=== PATIENT | female | born 1935 | race Caucasian/White ===

== ENCOUNTER 2019-06-21 15:13 | Observation (INO) | payer MEDICARE, SELFPAY ==
--- NOTE | ~2019-06-21 | XR_ITS ---
EXAMINATION: XR retrograde pyelo w/stent RT DATE: 06/22/2019 18:54 INDICATION: Right renal stone extraction TECHNIQUE: A total of 8 fluoroscopic images of the abdomen and pelvis were obtained during procedure performed by Dr. Leger. Radiologist was not present for the imaging or procedure. The amount of fluoroscopy time used during this procedure was 0.7 minutes. COMPARISON: CT dated 06/21/2019 FINDINGS: Images demonstrate advancement of a wire through the right ureter to the region of the right renal pe lvis. Contrast injection demonstrates mild to moderate right hydroureteronephrosis. Placement of a ri ght internal ureteral stent with loops formed at the right renal pelvis and bladder. Multiple phlebol iths in the pelvis. The previously seen distal right ureteral stone is not definitively visualized an d may have been extracted. Cholecystectomy clips in the right upper quadrant. IMPRESSION: 1. Right internal ureteral stent placement in expected position. See procedure note for further detai l. Reviewed, dictated and finalized at location A. R DOUBLER IMPRESSION: 1. Right internal ureteral stent placement in expected position. See procedure note for further detail.
--- NOTE | ~2019-06-21 | CT_ITS ---
EXAMINATION: CT abdomen pelvis w con DATE: 06/21/2019 19:21 INDICATION: Lower abdominal pain and vomiting. TECHNIQUE: Computed tomography (CT) of the abdomen and pelvis was performed with 100 mL Omnipaque-350 intravenous contrast. Automated exposure control and iterative reconstruction technique were employe d. The dose-length product was 851.46 mGy-cm. COMPARISON: 01/30/2019 FINDINGS: Mild left basilar atelectasis. Mild cardiomegaly. Atherosclerotic coronary artery calcification. Smal l sliding-type hiatal hernia. There is edematous appearing wall thickening the distal esophagus sugge stive of esophagitis potentially related to reflux. Small hepatic calcination in multiple splenic tasia cination is consistent with old granulomatous disease. Diffuse hepatic steatosis. Cholecystectomy cli ps at the gallbladder fossa. Pancreas, bilateral adrenal glands and left kidney are normal. There is a relatively low density 7 mm obstructing stone at the distal right ureter approximately 1.5 cm from the ureterovesicular junction with moderate right hydroureteronephrosis. Additional 6 mm 3 m m stones at the lower pole calyces of the right kidney. Moderate right perinephric stranding. There is mild colonic diverticulosis with a sigmoid predominance. There is no adjacent inflammatory change to suggest diverticulitis. The uterus is not identified and has likely been surgically resecte d. Numerous phleboliths in the pelvis. Bladder is normal. No free intraperitoneal gas or fluid. No pa thologically enlarged abdominal or pelvic lymphadenopathy. There is calcified atherosclerosis of the aorta and many of the other arteries. Severe thoracolumbar spondylosis. IMPRESSION: 1. Right-sided nephrolithiasis with obstructing 7 mm distal right ureteral stone resulting in moderat e right hydronephrosis. 2. Small sliding-type hiatal hernia with wall thickening the distal esophagus which could be related to reflux esophagitis. 3. Diffuse hepatic steatosis. 4. Mild cardiomegaly. Reviewed, dictated and finalized at location A. E[employer] DEVELOPMENT LIBRARIAN IMPRESSION: 1. Right-sided nephrolithiasis with obstructing 7 mm distal right ureteral ston e resulting in moderate right hydronephrosis. 2. Small sliding-type hiatal hernia with wall thickening the distal esophagus w hich could be related to reflux esophagitis. 3. Diffuse hepatic steatosis. 4. Mild cardiomegaly.
[2019-06-21 15:43] VITALS: BP 183/71; PULSE 74; RESP 22; TEMP 36.7; O2SAT 97
[2019-06-21 16:18] LABS: Basophils Absolute Auto 0.1 K/mm3 (0.0-0.1); Basophils Percent Auto 0.5 % (0.2-1.2); Eosinophils Absolute Auto 0.5 K/mm3 (0-0.3); Eosinophils Percent Auto 4.6 % (0-4.4); Hematocrit 42.7 % (37.0-47.0); Immature Granulocyte Absolute 0.04 K/mm3 (0.00-0.031); Immature Granulocyte Percent A 0.4 % (0-0.5); Lymphocytes Absolute Auto 1.47 K/mm3 (0.9-3.2); Lymphocytes Percent Auto 14.5 % (18.3-44.2); Mean Corpuscular HGB Conc 32.8 g/dl (32-36); Mean Corpuscular Hemoglobin 30.4 pg (26-34); Mean Corpuscular Volume 92.6 fl (80-100); Mean Platelet Volume 10.3 fl (7.4-10.4); Neutrophils Absolute Auto 7.1 K/mm3 (1.3-6.7); Platelet Count Result 262 k/mm3 (150-375); Red Blood Count 4.61 M/mm3 (4.2-5.4); Red Cell Distribution Width 13.9 % (11.5-14.5); White Blood Count 10.2 K/mm3 (4.5-10.0)
[2019-06-21 16:29] LABS: Blood Urea Nitrogen 19 mg/dL (7-17); Calcium 9.2 mg/dL (8.4-10.2); Carbon Dioxide 25 mmol/L (22-30); Chloride 103 mmol/L (98-107); Estimated CRCL calculation 34 ml/min; Estimated Glomerular Filt Rate 48; Glucose 128 mg/dL (65-105); Potassium 3.5 mmol/L (3.4-5.0); Sodium 140 mmol/L (137-145)
[2019-06-21 18:00] VITALS: BP 195/92; PULSE 72; RESP 18; TEMP 36.7; O2SAT 98
--- NOTE | 2019-06-21 18:50 | ED.ABDPAIN ---
HPI - Abdominal Pain General Chief Complaint: Abdominal Pain Stated Complaint: flank/abd pain Time Seen by Provider: 06/21/19 18:34 Source: patient and RN notes reviewed Mode of arrival: ambulatory Limitations: no limitations History of Present Illness HPI narrative: Pt is a 84 y/o female with a Hx of numerous rt sided kidney stones, lithotripsy, and ureteral stents, who presents to the ED with c/o rt flank pain starting this morning. She notes that she recently passed a kidney stone roughly 5 days ago. Pt states that she woke up this morning with pain in her rt lower back. She notes that her pain has since radiated around into her rt lower ABD. Pt reports nausea accompanying her pain, but denies any diarrhea, constipation, vomiting, fever, dysuria, hematuria, or sinus congestion. Pt with history of uric acid nephrolithiasis, follows with Dr. Leger. Pain is consistent with her typical kidney stone pain. MD elicited complaint: flank pain Pertinent past history: kidney stones Location: R flank Radiation: RLQ Associated symptoms: nausea Related Data Home Medications Medication Instructions Recorded Confirmed amlodipine 06/21/19 aspirin [Aspir-81] 81 06/21/19 venlafaxine mg PO 06/21/19 Allergies Allergy/AdvReac Type Severity Reaction Status Date / Time adhesive Allergy Mild itching Unverified 02/17/19 10:13 and skin adan Review of Systems Review of Systems: Narrative: CONSTITUTIONAL: Denies fever, chills, or sweats. ENT: Denies rhinorrhea, congestion, sore throat, or otalgia. CARDIOVASCULAR: Denies chest pain, palpitations, or edema. RESPIRATORY: Denies cough or dyspnea. GASTROINTESTINAL: Denies vomiting, constipation, or diarrhea. Reports rt flank pain radiating into rt lower ABD and nausea. GENITOURINARY: Denies dysuria or hematuria. MUSCULOSKELETAL: Denies joint pain, or myalgia. NEUROLOGIC: Denies headache, numbness, or weakness. All systems reviewed & are unremarkable except as noted in HPI and below PMFSH Past Medical History Medical History (Updated 06/21/19 @ 20:10 by Luigi Valderrama) Anxiety (Acute) Arthritis (Acute) Cataracts, bilateral (Acute) Depression (Acute) GERD (gastroesophageal reflux disease) (Acute) HTN (hypertension) (Acute) Kidney stones (Acute) Mitral valve prolapse (Acute) Peripheral neuropathy (Acute) Surgical History Surgical History (Updated 06/21/19 @ 20:10 by Luigi Valderrama) H/O lithotripsy (Acute) History of hysterectomy (Acute) History of ureter stent (Acute) Hx of cardiac catheterization (Acute) Hx of cataract surgery (Acute) Hx of cholecystectomy (Acute) Family History Family History (Updated 08/28/17 @ 10:13 by DOCTOR UNKNOWN) Sibling Carcinoma of colon Other Cerebrovascular accident Diabetes mellitus Family history of cardiovascular disease Hypertension Social History Social History Smoking status: Never smoker Alcohol intake: current Gender identity (if verbalized by the patient): Female Comments PCP is Dr. Nguyen. Urologist is Dr. Leger. Exam Narrative: Exam Narrative: GENERAL: Mildly uncomfortable appearing, conversant HEAD: Normocephalic, atraumatic. EYES: PERRLA and EOMI. ENT: Nares clear, no rhinorrhea or epistaxis. Mucous membranes moist. NECK: Supple. CHEST: Clear to auscultation. No respiratory distress. HEART: Regular rate and rhythm. No murmur heard. Normal peripheral pulses. ABDOMEN: Soft, nondistended, normal active bowel sounds. RLQ and LLQ tenderness. Rt flank tenderness. EXTREMITIES: Normal range of motion. No edema. SKIN: Warm, dry, no rash. NEURO: No focal deficits. Alert and oriented. Course Course Emergency Course: Patient presenting for evaluation of right flank and right lower abdominal pain that is very concerning for kidney stone given her history. At the time of presentation, ABCs are intact. Vital signs notable for hypertension, although she is in quite a bit of pain. Blood work obtained
[2019-06-21] MEDS: SODIUM CHLORIDE 0.9% IV 1,000 ML 999 ML IV CONT (19:25)
[2019-06-21] MEDS: ONDANSETRON INJ 4 MG/2 ML VIAL IV PUSH (19:28)
[2019-06-21] MEDS: MORPHINE SULFATE 4 MG/ML INJ IV PUSH ×2 (19:33→23:14)
[2019-06-21 19:44] LABS: Add Urine Microscopic? YES; Appearance Urine Clear (Clear); Bacteria Urine Trace /hpf; Bilirubin Urine Negative (Negative); Blood Urine 3+ (Negative); Color Urine Yellow (Yellow); Glucose Urine UA Negative (Negative); Ketones Urine Negative (Negative); Leukocyte Esterase Ur Negative LEU/UL (Negative); Mucus Urine Rare /lpf; Nitrate Urine Negative (Negative); Protein Urine 2+ mg/dL (Negative); Specific Grav Ur 1.013 (1.001-1.035); Squamous Epithelial Cell Urine Occasional /hpf (Few); Urobilinogen Urine Negative mg/dL (<2.0); WBC Urine 0-3
[2019-06-21 20:25] VITALS: BP 166/69; PULSE 74; RESP 18; O2SAT 97
[2019-06-21 21:05] VITALS: BP 186/78; PULSE 76; RESP 20; TEMP 36.8; O2SAT 95; BMI 36.0
[2019-06-21] MEDS: SODIUM CHLORIDE 0.9% IV 1,000 ML 125 ML IV CONT (21:13)
[2019-06-21] MEDS: AMLODIPINE BESYLATE 5 MG TABLET 10 MG PO (22:35)
[2019-06-21 23:45] VITALS: PULSE 78; O2SAT 95
[2019-06-22] MEDS: SODIUM CHLORIDE 0.9% IV 1,000 ML 125 ML IV CONT (05:04)
[2019-06-22 06:00] VITALS: BP 170/78; PULSE 76; RESP 20; TEMP 36.8; O2SAT 95
--- NOTE | 2019-06-22 10:38 | WPDURCON ---
Assessment and Plan Assessment and plan (1) Right distal ureteral calculus: Code(s): N20.1 - Calculus of ureter Status: Acute Assessment and Plan: obtain consent Keep NPO Go to OR today for : Cystoscopy, right ureteroscopy, possible right stone removal, possible right stent placement, possible holmium laser, retrograde pyelogram. HPI Date Seen: 06/22/19 Requesting Physician: Brittany eLger MD Primary Care Provider: Baldev Nguyen, Consult Narrative Reason for consult: Right Distal Ureteral Stone Narrative: Giana Yao is a 84 year old female who presented to the ER yesterday with acute onset of suprapubic pain that radiates to the lower back. She also states she had vomiting, which has subsided. She is a patient of Dr. Leger's, who has had ESWL's, ureteroscopys and a PCNL in the past. She has a WBC of 10.2, creatinine of 1.10, CT scan reveals right side distal ureteral stone measuring 7mm. She also states that she passed a stone at home five days ago. Review of Systems Cardiovascular: Cardiovascular: Denies chest pain Respiratory: Respiratory: Reports no additional respiratory complaints Gastrointestinal: Gastrointestinal: Denies nausea and Denies vomiting Genitourinary: Genitourinary: Denies urinary frequency, Denies dysuria, Reports pelvic pain, Reports flank pain, Denies urinary hesitancy and Denies urinary urgency PMFSH Past Medical History Medical History Anxiety (Acute) Arthritis (Acute) Cataracts, bilateral (Acute) Depression (Acute) GERD (gastroesophageal reflux disease) (Acute) HTN (hypertension) (Acute) Kidney stones (Acute) Mitral valve prolapse (Acute) Peripheral neuropathy (Acute) Surgical History Surgical History H/O lithotripsy (Acute) History of hysterectomy (Acute) History of ureter stent (Acute) Hx of cardiac catheterization (Acute) Hx of cataract surgery (Acute) Hx of cholecystectomy (Acute) Family History Family History Sibling Carcinoma of colon Other Cerebrovascular accident Diabetes mellitus Family history of cardiovascular disease Hypertension Social History Social History Smoking status: Never smoker Alcohol intake: never Substance use: never Gender identity (if verbalized by the patient): Female Spiritual care concerns: No Agree to blood products: Yes Meds Home Medications and Allergies Home Medications Medication Instructions Recorded Confirmed Type amlodipine 10 mg PO HS 06/21/19 06/21/19 History aspirin [Aspir-81] 81 mg PO HS 06/21/19 06/21/19 History trazodone 100 mg PO HS 06/21/19 06/21/19 History venlafaxine 75 mg PO DAILY 06/21/19 06/21/19 History Allergies Allergy/AdvReac Type Severity Reaction Status Date / Time adhesive Allergy Mild itching Verified 06/21/19 21:21 and skin adan Vital Signs Vital Signs - 24 hr 06/21/19 15:43 06/21/19 18:00 06/21/19 20:25 Temperature 98.1 F 98.1 F Pulse Rate 74 72 74 Respiratory Rate 22 H 18 18 Blood Pressure 183/71 H 195/92 H 166/69 H Pulse Oximetry 97 98 97 06/21/19 21:05 06/21/19 23:45 06/22/19 06:00 Temperature 98.3 F 98.3 F Pulse Rate 76 78 76 Respiratory Rate 20 20 Blood Pressure 186/78 H 170/78 H Pulse Oximetry 95 95 95 Exam Resp: Effort & Inspection: normal respiratory effort Cardio: Rate: regular rate GI: Palpation (GI): No abdominal tenderness Results Labs CBC & Chem 7: 06/21/19 15:44 06/21/19 15:44 Labs: Short CBC 06/21/19 Range/Units 15:44 WBC 10.2 H (4.5-10.0) K/mm3 Hgb 14.0 (12.0-15.0) g/dL Hct 42.7 (37.0-47.0) % Plt Count 262 (150-375) k/mm3 BMP 06/21/19 15:44 Sodium 140 Potassium 3.5 Chloride 103 Carbon Dioxid
--- NOTE | 2019-06-22 13:17 | ADMGEN ---
Patient to surgery per stretcher.
[2019-06-22] MEDS: LACTATED RINGERS 1,000 ML 30 ML IV CONT (14:00)
[2019-06-22 14:06] VITALS: BP 148/53; PULSE 66; RESP 16; TEMP 36.8; O2SAT 96
--- NOTE | 2019-06-22 14:17 | WPDHPUPDATE1 ---
History and Physical Update Update Date/Time: 06/22/19 14:17 History and Physical has been reviewed, including an updated exam of the patient. There are NO changes in the patient's condition. Risks, benefits, and alternatives have been discussed and questions answered. Patient agrees to proceed with procedure.
--- NOTE | 2019-06-22 14:46 | WPDANESEPPF ---
Anes - Initial Pre Proc Eval Procedure: Operation Date: 06/22/19 14:00 Proposed Procedures p Cystoscopy, Right Ureteroscopy, Right Retrograde Pyelogram, Right Stone Extraction, Possible Right Stent Placement, - Brittany Leger MD s Possible Holmium Laser Procedure - Brittany Leger MD Date/Time: 06/22/19 14:46 Surgeon: Brittany Leger MD Pre Op Diagnosis: renal colic Patient Data Age: 84 Gender: F Height: 1.52 m Weight: 83.7 kg Last Vital Signs Temp 36.8 C 06/22/19 14:06 Pulse 66 06/22/19 14:06 Resp 16 06/22/19 14:06 BP 148/53 H 06/22/19 14:06 Pulse Ox 96 06/22/19 14:06 Allergies Allergy/AdvReac Type Severity Reaction Status Date / Time adhesive Allergy Mild itching Verified 06/22/19 14:25 and skin adan Home Medications Medication Instructions Recorded Confirmed Type amlodipine 10 mg PO HS 06/21/19 06/21/19 History aspirin [Aspir-81] 81 mg PO HS 06/21/19 06/21/19 History trazodone 100 mg PO HS 06/21/19 06/21/19 History venlafaxine 75 mg PO DAILY 06/21/19 06/21/19 History Laboratory Tests 06/21/19 06/21/19 06/21/19 15:44 15:44 19:23 WBC 10.2 K/mm3 H K/mm3 (4.5-10.0) RBC 4.61 M/mm3 M/mm3 (4.2-5.4) Hgb 14.0 g/dL g/dL (12.0-15.0) Hct 42.7 % % (37.0-47.0) MCV 92.6 fl fl (80-100) MCH 30.4 pg pg (26-34) MCHC 32.8 g/dl g/dl (32-36) RDW 13.9 % % (11.5-14.5) Plt Count 262 k/mm3 k/mm3 (150-375) MPV 10.3 fl fl (7.4-10.4) Immature Gran % (Auto) 0.4 % % (0-0.5) Neut % (Auto) 70.0 % % (45.5-73.1) Lymph % (Auto) 14.5 % L % (18.3-44.2) Cass % (Auto) 10.0 % H % (2.6-8.5) Eos % (Auto) 4.6 % H % (0-4.4) Baso % (Auto) 0.5 % % (0.2-1.2) Lymph # (Auto) 1.47 K/mm3 K/mm3 (0.9-3.2) Cass # (Auto) 1.0 K/mm3 H K/mm3 (0.1-0.6) Eos # (Auto) 0.5 K/mm3 H K/mm3 (0-0.3) Baso # (Auto) 0.1 K/mm3 K/mm3 (0.0-0.1) Abs Immat Gran (auto) 0.04 K/mm3 H K/mm3 (0.00-0.031) Absolute Neuts (auto) 7.1 K/mm3 H K/mm3 (1.3-6.7) Absolute Nucleated RBC 0.0 K/mm3 K/mm3 (0.0-0.012) Nucleated RBC % 0.0 % % (0.0-0.2) Sodium 140 mmol/L mmol/L (137-145) Potassium 3.5 mmol/L mmol/L (3.4-5.0) Chloride 103 mmol/L mmol/L (98-107) Carbon Dioxide 25 mmol/L mmol/L (22-30) BUN 19 mg/dL H mg/dL (7-17) Creatinine 1.10 mg/dL H mg/dL (0.7-1.0) Estim Creat Clear Calc 34 ml/min ml/min Estimated GFR 48 L (59 - ) Glucose 128 mg/dL H mg/dL (65-105) Calcium 9.2 mg/dL mg/dL (8.4-10.2) Urine Color Yellow (Yellow) Urine Appearance Clear (Clear) Urine pH 5.0 (5.0-9.0) Ur Specific [place] 1.013 (1.001-1.035) Urine Protein 2+ mg/dL H mg/dL (Negative) Urine Glucose (UA) Negative mg/dL mg/dL (Negative) Urine Ketones Negative mg/dL mg/dL (Negative) Ur Blood (Man) 3+ H (Negative) Urine Nitrate Negative (Negative) Urine Bilirubin Negative (Negative) Urine Urobilinogen Negative mg/dL mg/dL (<2.0) Leukocyte Esterase Rfl Negative HUBERT/UL HUBERT/UL (Negative) Urine RBC 11-20 /hpf H /hpf (0-2) Urine WBC 0-3 Ur Squamous Epith Cells Occasional /hpf /hpf (Few) Urine Bacteria Trace /hpf /hpf Hyaline Casts 1-2 /lpf /lpf (None) Urine Mucus Rare /lpf /lpf Patient hx anesthesia problems: none Family hx anesthesia problems: none [facility] Past Medical History Medical History (Updated 06/22/19 @ 14:47 by Manan Vera MD) Anxiety (Acute) Arthritis (Acute) Cataracts, bilateral (Acute) Depression (Acute) GERD (gastroesophageal reflux disease) (A
--- NOTE | 2019-06-22 14:54 | ECG_ITS ---
Measurements Intervals Sage Rate: 62 P: 20 DE: 182 QRS: -7 QRSD: 86 T: 12 QT: 364 QTc: 372 Interpretive Statements SINUS RHYTHM NONSPECIFIC T-WAVE ABNORMALITY- INFERIOR LEADS BORDERLINE ECG Electronically Signed On 06-22-2019 15:23:47 MECHANICAL PRESS OPERATOR by Abner Schaffer D.O.
--- NOTE | 2019-06-22 16:22 | SUR.PREOP ---
1620 UPDATED ON SURGERY DELAY. CHANGE OF POSITION & RESTROOM OFFERED.
[2019-06-22] MEDS: ceFAZolin 2 GM/D5W 50 ML 2 GM/50 ML BAG IVPB (18:00)
[2019-06-22] MEDS: LIDOCAINE HCL 2% GEL UROJET 10 ML PKG MUCOUS MEM (18:20)
[2019-06-22 18:51] VITALS: BP 158/73; PULSE 70; RESP 23; TEMP 36.5; O2SAT 98
[2019-06-22 19:05] VITALS: BP 167/78; PULSE 66; RESP 15; O2SAT 100
[2019-06-22 19:20] VITALS: BP 167/62; PULSE 60; RESP 12; O2SAT 97
[2019-06-22 19:35] VITALS: BP 167/72; PULSE 63; RESP 13; O2SAT 95
--- NOTE | 2019-06-22 19:38 | SUR.PHASEI ---
REPORT GIVEN TO TANYA ENRIQUEZ.
--- NOTE | 2019-06-23 00:17 | OP_ITS ---
DATE OF PROCEDURE: 06/22/2019 PREOPERATIVE DIAGNOSES: 1. Right ureteral stone, 1 cm. 2. Right renal stone approximately 6 mm. POSTOPERATIVE DIAGNOSES: 1. Right ureteral stone, 1 cm. 2. Right renal stone approximately 6 mm. PROCEDURES PERFORMED: 1. Cystoscopy. 2. Right ureteroscopy. 3. Laser lithotripsy. 4. Stone extraction. 5. Retrograde pyelogram. 6. Stent insertion. INDICATION FOR PROCEDURE: The patient is a very pleasant lady, who presented to the ER with a large right distal ureteral stone. I have discussed risks and alternatives with the patient. The patient agreed to proceed with right ureteroscopy today. She understand the risks of procedure included, but not limited to infection, bleeding, pain, injury to surrounding structures, and need for additional operations, and possibly anesthetics. She agrees to proceed. DESCRIPTION OF PROCEDURE: After informed consent obtained, the patient was taken to the operating room and given preoperative IV antibiotics on the floor. She was induced anesthesia. She was placed in dorsal lithotomy position. She was prepped and draped in normal sterile fashion. We inserted a 22-Azerbaijani cystoscope through the urethra into the bladder. We inspected the bladder. There were no mucosal abnormalities. We cannulated the right ureteral orifice. With the wire, we then dilated 8/10 coaxial dilator. We inserted a semi-rigid ureteroscope in the distal ureter approximately 2 cm above the ureterovesical junction. Above the level of a slight narrowing, we identified a 1 cm stone. This was too large to be removed. We therefore used a laser fiber in order to fragment the stone into multiple fragments. Fragments were then grasped and removed and sent as specimen. We inspected the ureter up to the mid ureter and there were no residual stones. We then switched to the flexible ureteroscope. This was inserted through the ureter into the renal pelvis. After retrograde pyelogram was performed, we inspected calyx. There was a mid pole 6 mm stone. There were no additional significant stones seen. The 6 mm stone was grasped. It was pulled down to the distal ureter up to the point of previous stone impaction. We then switched back to the semirigid ureteroscope. We fragmented the stone with the laser.. They were grasped and removed. There were no residual stones seen. Retrograde pyelogram was performed showing persistent moderate right hydroureteronephrosis. We did not note extravasation. We placed a 6-Azerbaijani variable length stent with a curl in renal pelvis and curl in the bladder. The bladder was emptied. A 10 mL of lidocaine instilled. The patient was awakened and taken to the recovery room in stable condition. IV FLUIDS: Per Anesthesia. COMPLICATIONS: None. ESTIMATED BLOOD LOSS: Minimal. FOLLOWUP: The patient will follow up in the office in 1 to 2 weeks for ureteral stent removal. D I MT: Yesenia MORILLO
--- NOTE | 2019-06-24 11:00 | PC.NURSE ---
While performing discharge callbacks on 06/24/19 at 1055, the patient was educated on why she was prescribed Colace upon discharge.
--- NOTE | 2019-08-04 02:57 | DS_ITS ---
DATE OF DISCHARGE: 06/22/2019 PREOP DIAGNOSIS: Right ureteral stone, right renal stone. POSTOP DIAGNOSIS: Right ureteral stone, right renal stone. The patient underwent cystoscopy, right ureteroscopy, laser lithotripsy, stone extraction, retrograde pyelogram, and stent insertion per Dr. Brittany Leger on June 22, 2019. The patient tolerated the procedure well, was transferred to recovery in stable condition and then to the floor for further observation. The patient was then discharged home. ACTIVITY: No straining. DIET: As tolerated. She was to resume all home medications including new medications, Colace, oxybutynin, and oxycodone as needed. The patient was to follow up the following week for stent removal in the office. [place] I MT: Yesenia
== END 2019-06-22 20:30 | disposition home or self-care (01) ==
LOC: ANHED 20:06 → ANH3MEDSUR 20:12
PROVIDERS: Emergency Medicine; Admitting Provider Urology; Emergency Provider Emergency Medicine; PCP Internal Medicine; Visit Provider Urology
PROC: (CPT 52352; principal; 2019-06-22 14:00)
PROC: (CPT 52356; 2019-06-22 14:00)
DX: N20.2 Calculus of kidney with calculus of ureter (principal); I10 Essential (primary) hypertension; K21.9 Gastro-esophageal reflux disease without esophagitis; G62.9 Polyneuropathy, unspecified
CPT/HCPCS: 52356; 36415; 74177; 74420; 80048; 81001; 82365; 85025; 88300; 93005; 96361; 96374; 96375; 96376; 99285; A9270; C1769; C2617; G0378; J0131; J0690; J1100; J2270; J2405; J2704; J3010; J7030; J7120; Q9967

== ENCOUNTER 2019-12-08 12:43 | Outpatient (CLI) | payer MEDICARE, SELFPAY ==
--- NOTE | ~2019-12-08 | CT_ITS ---
EXAMINATION: CT chest wo con EXAM DATE: 12/08/2019 13:06 INDICATION: Lung nodule. Follow-up. TECHNIQUE: Spiral CT of the chest without contrast. Axial, coronal and sagittal images were reviewe d. Coronal maximum intensity pixel images of chest reviewed. The dose-length product (DLP) for this examination was 145.29 mGy-cm. The exposure was tailored according to patient size (auto mA exposur e control), and iterative reconstruction (ASIR) was used as additional dose reduction technique. Comp arison is made to prior examination from 10/14/2018, 11/16/2018. FINDINGS: Previously seen left lower lobe 11 mm nodule now has more linear appearance, loss of its r ound shape, and there is evidence of volume loss. Appearance is consistent with round atelectasis. Th ere are no new or suspicious pulmonary nodules. There is mild emphysema and hyperinflation. There are no pleural or pericardial effusions. Tracheobronchial tree is patent. There is no media stinal, hilar or axillary lymphadenopathy. There is no pneumothorax. Heart normal in size. No e vidence of coronary arterial calcification. There is small sliding gastroesophageal hiatal hernia. T here are cholecystectomy clips. There is moderate thoracic spondylosis without osteoblastic or osteo lytic lesions identified. Patient has diffuse idiopathic skeletal hyperostosis (DISH). IMPRESSION: 1. Left lower lobe round atelectasis. 2. Mild hyperinflation and emphysema. Reviewed, dictated and finalized at location A.
== END 2019-12-08 12:44 | disposition home or self-care (01) ==
LOC: ANHIMG 12:48
PROVIDERS: PCP Internal Medicine; Visit Provider Internal Medicine
DX: R91.1 Solitary pulmonary nodule (principal); J43.9 Emphysema, unspecified; R91.8 Other nonspecific abnormal finding of lung field
CPT/HCPCS: 71250

== ENCOUNTER 2020-06-26 13:48 | Outpatient (CLI) | payer MEDICARE, SELFPAY ==
--- NOTE | ~2020-06-26 | XR_ITS ---
EXAMINATION: XR chest 2V EXAM DATE: 06/26/2020 14:08 INDICATION: Chronic cough. TECHNIQUE: Frontal and lateral projections of the chest obtained and reviewed. Comparison is made to prior examination from 12/08/2013. FINDINGS: The lungs are clear. There are no pleural effusions. The cardiomediastinal silhouette is within normal limits. There is no pneumothorax suspected. Patient has diffuse idiopathic skeletal h yperostosis (DISH). There is aortic arteriosclerosis. IMPRESSION: No acute cardiopulmonary findings. Reviewed, dictated and finalized at location A. LIANCE SPECIALIST
== END 2020-06-26 13:49 | disposition home or self-care (01) ==
PROVIDERS: PCP Internal Medicine; Visit Provider Internal Medicine
DX: R05 Cough (principal); M48.10 Ankylosing hyperostosis [Forestier], site unspecified; I25.10 Atherosclerotic heart disease of native coronary artery without angina pectoris
CPT/HCPCS: 71046

== ENCOUNTER 2021-04-12 12:42 | Emergency (ER) | payer MEDICARE, SELFPAY ==
--- NOTE | ~2021-04-12 | XR_ITS ---
EXAMINATION: XR chest 2V DATE: 04/12/2021 12:59 INDICATION: Difficulty swallowing, feeling of food stuck in the chest after eating TECHNIQUE: PA and lateral views of the chest are obtained. COMPARISON: 06/26/2020 FINDINGS: The lungs are free of acute opacities. There is no pleural effusion or pneumothorax. The ca rdiomediastinal silhouette is normal. There are bridging osteophytes at multiple levels in the spine, consistent with diffuse idiopathic skeletal hyperostosis (DISH). Surgical clips in the upper abdomen on the lateral view are likely from prior cholecystectomy. IMPRESSION: 1. No acute cardiopulmonary abnormality. Reviewed, dictated and finalized at location A.
[2021-04-12 12:50] VITALS: BP 125/60; PULSE 80; RESP 16; TEMP 36.8; O2SAT 98
--- NOTE | 2021-04-12 13:09 | ED.GENADULT ---
HPI - General Adult General Chief complaint: Skin/Abscess/Foreign Body Stated complaint: Choking on food History of Present Illness HPI narrative: This is a 85 year old female granddaughter came in screaming her grandmother was in the car choking. When I arrived she was coughing up thick mucous and stated that she couldn't get anything down when she was eating she started choking and throwing up. According to patient this happened one time before and she has acid that comes up some times. Patient complains of coughing Related Data Home Medications Medication Instructions Recorded Confirmed amlodipine 10 mg PO HS 06/21/19 04/12/21 aspirin [Aspir-81] 81 mg PO HS 06/21/19 04/12/21 trazodone 100 mg PO HS 06/21/19 04/12/21 venlafaxine 75 mg PO DAILY 06/21/19 04/12/21 lisinopril 10 mg tablet 10 mg PO DAILY 01/04/21 04/12/21 metformin 500 mg tablet 500 mg PO DAILY 01/04/21 04/12/21 Allergies Allergy/AdvReac Type Severity Reaction Status Date / Time adhesive Allergy Mild itching Verified 04/12/21 13:12 and skin adan Review of Systems Review of Systems: ENT choking on food, coughing All systems reviewed & are unremarkable except as noted in HPI and below PMFSH Past Medical History Medical History Anxiety Arthritis Cataracts, bilateral Colonic diverticular abscess Depression GERD (gastroesophageal reflux disease) HTN (hypertension) Kidney stones Mitral valve prolapse Obesity Peripheral neuropathy Right distal ureteral calculus Surgical History Surgical History H/O lithotripsy History of hysterectomy History of ureter stent Hx of cardiac catheterization Hx of cataract surgery Hx of cholecystectomy Family History Family History Sibling Carcinoma of colon Diabetes mellitus Mother , age 82 Heart disease Hypertension Other Cerebrovascular accident Family history of cardiovascular disease Social History Social History Smoking status: Never smoker Alcohol intake: never Substance use: never Gender identity (if verbalized by the patient): Female Spiritual care concerns: No Agree to blood products: Yes Comments At time as signature, I have reviewed and agree with nursing past medical, social, surgical and family history. Please see nursing chart for further information. There is no relevant family history pertinent to the presenting complaint. Exam Narrative: GENERAL:Well-appearing, well-nourished, and in no acute distress. HEAD:Normocephalic, atraumatic. EYES: PERRLA ENT: Nares clear, CHEST: Clear to auscultation. No respiratory distress. HEART: Regular rate and rhythm. No murmur heard. Normal peripheral pulses. ABDOMEN: Soft, nontender, nondistended, normal active bowel sounds. EXTREMITIES: Normal range of motion. No edema. SKIN: Warm, dry, no rash. NEURO: No focal deficits. Alert and oriented x3. Course Course Emergency Course: Chest x-ray represents no cardiopulmonary disease Vital Signs Vital signs: Vital Signs Temperature 98.2 F 04/12/21 12:50 Pulse Rate 80 04/12/21 12:50 Respiratory Rate 16 04/12/21 12:50 Blood Pressure 125/60 04/12/21 12:50 Pulse Oximetry 98 04/12/21 12:50 Temperature 98.2 F 04/12/21 12:50 Pulse Rate 80 04/12/21 12:50 Respiratory Rate 16 04/12/21 12:50 Blood Pressure 125/60 04/12/21 12:50 Pulse Oximetry 98 04/12/21 12:50 Medical Decision Making Differential Diagnosis Differential Diagnosis: Aspiration pneumonia, esophageal viewed varices, choking, GERD Vital Signs Vital Signs: Vital Signs Temperature 98.2 F 04/12/21 12:50 Pulse Rate 80 04/12/21 12:50 Respiratory Rate 16 04/12/21 12:50 Blood Pressure 125/60 04/12/21 12:50 Pulse Oximetry 98
== END 2021-04-12 13:30 | disposition home or self-care (01) ==
PROVIDERS: Emergency Provider Nurse Practitioner Family
DX: T17.320A Food in larynx causing asphyxiation, initial encounter (principal); F32.9 Major depressive disorder, single episode, unspecified; F41.9 Anxiety disorder, unspecified; I10 Essential (primary) hypertension; Z79.82 Long term (current) use of aspirin
CPT/HCPCS: 71046; 99213; G0463

== ENCOUNTER 2021-05-21 16:16 | Outpatient (CLI) | payer MEDICARE, SELFPAY ==
--- NOTE | ~2021-05-21 | MM_ITS ---
EXAMINATION: MM screening daja BI w derik HISTORY: Screening mammogram TECHNIQUE: Craniocaudal and mediolateral oblique 3-D tomosynthesis images were obtained and synthetic 2-D images were generated. CAD analysis was submitted and interpreted. COMPARISON: No prior mammogram is available for comparison at this institution. BREAST PARENCHYMAL COMPOSITION: There are scattered areas of fibroglandular density. FINDINGS: Scattered bilateral benign calcifications. There is no evidence of suspicious mass, calcifi cation, or architectural distortion to suggest malignancy in either breast. There has been no suspici ous interval change. IMPRESSION: 1. No mammographic evidence of malignancy. 2. Recommend routine screening mammography in one year. BI-RADS Category 2: Benign finding(s). Reviewed, dictated and finalized at location A.
== END 2021-05-21 16:17 | disposition home or self-care (01) ==
LOC: ANHIMG 16:18
PROVIDERS: Visit Provider Internal Medicine
DX: Z12.31 Encounter for screening mammogram for malignant neoplasm of breast (principal)
CPT/HCPCS: 77063; 77067

== ENCOUNTER 2021-05-24 13:04 | Outpatient (CLI) | payer MEDICARE, SELFPAY ==
--- NOTE | ~2021-05-24 | CT_ITS ---
EXAMINATION: CT diagnostic chest w con DATE: 05/24/2021 14:54 INDICATION: Cough TECHNIQUE: Computed tomography (CT) of the chest was performed with 75 cc Omnipaque 350 intravenous c ontrast. The dose-length product was 536.88 mGy-cm. Automated exposure control and iterative reconstr uction technique were employed. COMPARISON: CT dated 12/08/2019 FINDINGS: Mild atherosclerosis of the aorta without evidence for aneurysm. Heart size is normal. No m ediastinal or hilar lymphadenopathy. No significant pleural or pericardial effusion. Fatty infiltrati on of the liver. There are calcified granulomas in the spleen. There are a few scattered calcified gr anulomas. Stable rounded atelectasis left lower lobe. Mild emphysema. No endobronchial lesions. No pn eumothorax. No new focal areas of airspace disease to suggest pneumonia. There is moderate thoracic s pondylosis with accentuated kyphosis. IMPRESSION: 1. Chronic rounded atelectasis left lower lobe unchanged. 2: Mild emphysema. Reviewed, dictated and finalized at location A.
[2021-05-24 14:46] LABS: Estimated Glomerular Filt Rate 33
--- NOTE | 2021-05-24 15:11 | WPDPFTINT ---
PFT Procedure Performed PFT Procedure Performed Spirometry with Pre/Post Bronchodilator Diffusing Cap (DLCO) Flow Vol Loop PFT Interpretation This is a pulmonary function test with pre and post-bronchodilator spirometry and diffusing capacity. The test was performed and results interpreted in accordance with the 2019 and 2005 ATS/ERS Task Force guidelines respectively using the Global Lung Function Initiative-2012 reference equations. Patient demonstrated good effort and cooperation. Reproducibility criteria were met. The quality of the pre bronchodilator spirometry maneuver was Grade B and post bronchodilator spirometry maneuver was Grade B. Patient was unable to provide acceptable and reproducible plethysmography data. Findings: Spirometry: the contour the inspiratory and expiratory flow tracing are normal. The pre bronchodilator FVC is 2.05 L, 97% predicted. The pre bronchodilator FEV1 is 1.38 L, 85% predicted. The FEV1: FVC ratio 67%. The post bronchodilator FVC is 2.24 L, representing a 9% increase. The post bronchodilator FEV1 is 1.53 L, representing an 11% increase. diffusing capacity: The absolute diffusion capacity is 16.2, 93% predicted. The diffusing capacity corrected for alveolar volume is 4.74, 111% predicted. Impression: The spirometry is normal without evidence of an obstructive abnormality. There is no significant improvement after inhaling a single dose of albuterol. The diffusing capacity is normal. There are no prior studies for comparison
== END 2021-05-24 13:05 | disposition home or self-care (01) ==
PROVIDERS: Visit Provider Nurse Practitioner Family
DX: R05.9 Cough, unspecified (principal); R91.8 Other nonspecific abnormal finding of lung field; J43.9 Emphysema, unspecified
CPT/HCPCS: 71260; 94060; 94729; Q9967

== ENCOUNTER 2021-12-16 11:48 | Emergency (ER) | payer MEDICARE, SELFPAY ==
--- NOTE | ~2021-12-16 | CT_ITS ---
EXAMINATION: CT abdomen pelvis wo con DATE: 12/16/2021 12:40 INDICATION: Right upper quadrant and flank pain for one week. History of kidney stones. TECHNIQUE: Computed tomography (CT) of the abdomen and pelvis was performed without intravenous contr ast. The dose-length product was 698.20 mGy-cm. Automated exposure control and iterative reconstructi on technique were employed. COMPARISON: CT dated 06/21/2019. FINDINGS: There is left lower lobe atelectasis/scarring unchanged. Otherwise, lung bases are unremark able. Heart size is normal. Fatty infiltration of the liver. There are cholecystectomy clips. There are calcified granulomas of t he spleen. There is fatty infiltration of the liver. There is a small hiatal hernia. The adrenal glan ds are unremarkable. There are nonobstructing bilateral renal stones. No ureteral stones or hydroneph rosis. Moderate-severe lumbar spondylosis with grade 1 degenerative spondylolisthesis at L4-5. Bowel pattern is nonobstructive. Normal appendix. Colonic diverticulosis without evidence for diverti culitis. No free air or free fluid. Status post hysterectomy. No significant vascular abnormality. No lymphadenopathy. IMPRESSION: 1. Nonobstructing bilateral nephrolithiasis. Reviewed, dictated and finalized at location A.
[2021-12-16 11:52] VITALS: BP 112/81; PULSE 84; RESP 20; TEMP 36.5; O2SAT 100
[2021-12-16 12:11] LABS: Basophils Percent Auto 0.6 % (0.2-1.2); Eosinophils Absolute Auto 0.6 K/mm3 (0-0.3); Hematocrit 38.3 % (37.0-47.0); Hemoglobin 12.6 g/dL (12.0-15.0); Immature Granulocyte Absolute 0.04 K/mm3 (0.00-0.031); Immature Granulocyte Percent A 0.6 % (0-0.5); Lymphocytes Absolute Auto 1.64 K/mm3 (0.9-3.2); Lymphocytes Percent Auto 24.6 % (18.3-44.2); Mean Corpuscular HGB Conc 32.9 g/dl (32-36); Mean Corpuscular Hemoglobin 31.1 pg (26-34); Mean Corpuscular Volume 94.6 fl (80-100); Mean Platelet Volume 9.9 fl (7.4-10.4); Monocytes Absolute Auto 0.5 K/mm3 (0.1-0.6); Monocytes Percent Auto 8.1 % (2.6-8.5); Neutrophils Absolute Auto 3.8 K/mm3 (1.3-6.7); Neutrophils Percent Auto 57.1 % (45.5-73.1); Platelet Count Result 235 k/mm3 (150-375); Red Blood Count 4.05 M/mm3 (4.2-5.4); Red Cell Distribution Width 13.7 % (11.5-14.5); White Blood Count 6.7 K/mm3 (4.5-10.0)
[2021-12-16 12:27] LABS: Appearance Urine Clear (Clear); Bilirubin Urine Negative (Negative); Blood Urine 2+ (Negative); Color Urine Yellow (Yellow); Glucose Urine UA Negative (Negative); Ketones Urine Negative (Negative); Leukocyte Esterase Ur Negative LEU/UL (Negative); Nitrate Urine Negative (Negative); Protein Urine Negative (Negative); Urobilinogen Urine 0.2 mg/dL (<2.0); pH Urine 5.5 (5.0-9.0)
[2021-12-16 12:31] LABS: Add Urine Microscopic? NO
[2021-12-16 12:36] LABS: Alanine Aminotransferase 33 U/L (6-35); Albumin Level 3.8 g/dL (3.5-5.1); Alkaline Phosphatase 71 U/L (38-126); Anion Gap 9 mmol/L (8-16); Aspartate Amino Transferase 51 U/L (14-36); Bilirubin,Total 0.8 mg/dL (0.2-1.3); Blood Urea Nitrogen 22 mg/dL (7-17); Calcium 9.1 mg/dL (8.4-10.2); Carbon Dioxide 26 mmol/L (22-30); Chloride 103 mmol/L (98-107); Estimated CRCL calculation 31 ml/min; Estimated Glomerular Filt Rate 47; Glucose 153 mg/dL (65-110); Potassium 3.4 mmol/L (3.4-5.0); Sodium 138 mmol/L (137-145)
[2021-12-16 12:39] LABS: Mucus Urine Rare /lpf; Squamous Epithelial Cell Urine Occasional /hpf (Few); WBC Urine 0-3 /hpf
--- NOTE | 2021-12-16 12:56 | ED.GENADULT ---
HPI - General Adult General Chief complaint: Abdominal Pain Stated complaint: Back pain Time Seen by Provider: 12/16/21 12:08 Source: RN notes reviewed History of Present Illness HPI narrative: Patient presents emerged department from home for right back pain. Patient states she had pain in the right flank region that radiates around to the right upper abdomen for the past 1 week. States that nothing makes the pain better or worse she states she does have a history of kidney stones and feels that she may have another kidney stone. She denies any fevers or chills chest pain shortness of breath nausea vomiting diarrhea or any other symptoms. States has been taking Tylenol and ibuprofen at home for pain and does not wish to have any pain medication at this time Related Data Home Medications Medication Instructions Recorded Confirmed amlodipine 10 mg PO HS 06/21/19 04/12/21 trazodone 100 mg PO HS 06/21/19 04/12/21 venlafaxine 75 mg PO DAILY 06/21/19 04/12/21 metformin 500 mg tablet 500 mg PO DAILY 01/04/21 04/12/21 hydrochlorothiazide 25 mg tablet 25 mg PO DAILY 10/01/21 losartan 50 mg tablet 50 mg PO DAILY 10/01/21 Allergies Allergy/AdvReac Type Severity Reaction Status Date / Time lisinopril Allergy Headache Verified 12/16/21 11:56 Review of Systems Review of Systems: Gen.: Denies fevers or chills ENT: Denies congestion Respiratory: Denies shortness of breath or cough CV: Denies chest pain or palpitations GI: Right upper abdominal pain nausea, emesis or diarrhea reports right flank pain denies burning, urgency, frequency or hematuria Musculoskeletal: Denies back pain or muscle pain Neuro: Denies numbness, tingling, weakness or focal weakness Skin: Denies rash Except as documented, all other systems reviewed and negative PMFSH Past Medical History Medical History Anxiety Arthritis Cataracts, bilateral Colonic diverticular abscess Depression Diabetes GERD (gastroesophageal reflux disease) HTN (hypertension) Kidney stones Mitral valve prolapse Obesity Peripheral neuropathy Right distal ureteral calculus Surgical History Surgical History H/O lithotripsy History of hysterectomy History of total left knee replacement History of ureter stent Hx of cardiac catheterization Hx of cataract surgery Hx of cholecystectomy Family History Family History Sibling Carcinoma of colon Diabetes mellitus Mother , age 82 Heart disease Hypertension Father Diabetes mellitus Hypertension Other Cerebrovascular accident Family history of cardiovascular disease Social History Social History Smoking status: Never smoker Alcohol intake: never Substance use: never Gender identity (if verbalized by the patient): Female Spiritual care concerns: No Agree to blood products: Yes Exam Narrative: APPEARANCE: No acute distress, nontoxic, resting in bed EYES: EOMI HEENT: Normocephalic, atraumatic, OMM RESPIRATORY: No respiratory distress Clear to auscultation bilaterally with no rhonchi wheezing or rales. CARDIOVASCULAR: Regular rate and rhythm without murmurs rubs or gallops. ABDOMINAL: Soft, nontender, nondistended, no rebound or guarding MUSCULOSKELETAl: Moves all extremities. No clubbing, cyanosis or edema. NEURO: Awake and alert. Following commands, speech normal, no focal deficits SKIN:: Warm, dry. Erythematous rash over right mid back wrapping around to the right upper abdomen only on the right side with erythematous base with some vesicles present consistent with shingles PSYCHIATRIC: Normal affect/mood, Course Course Emergency Course: Discussed with patient results of workup and diagnosis. Discussed need for follow-up with primary care, proper use of medication
[2021-12-16] MEDS: valACYclovir HCL 500 MG TABLET 1000 MG PO (13:06)
== END 2021-12-16 13:31 | disposition home or self-care (01) ==
PROVIDERS: Emergency Provider Emergency Medicine
DX: B02.9 Zoster without complications (principal); E11.42 Type 2 diabetes mellitus with diabetic polyneuropathy; I10 Essential (primary) hypertension; I34.1 Nonrheumatic mitral (valve) prolapse; K21.9 Gastro-esophageal reflux disease without esophagitis; M19.90 Unspecified osteoarthritis, unspecified site; F32.A Depression, unspecified; F41.9 Anxiety disorder, unspecified; E66.9 Obesity, unspecified; Z68.33 Body mass index [BMI] 33.0-33.9, adult; Z87.442 Personal history of urinary calculi; Z96.652 Presence of left artificial knee joint; Z98.42 Cataract extraction status, left eye; Z98.41 Cataract extraction status, right eye; Z79.84 Long term (current) use of oral hypoglycemic drugs; N20.0 Calculus of kidney
CPT/HCPCS: 36415; 74176; 80053; 81003; 85025; 99284; A9270

== ENCOUNTER 2022-10-26 14:07 | Inpatient (IN) | payer MEDICARE, SELFPAY ==
--- NOTE | ~2022-10-26 | CT_ITS ---
EXAMINATION: CT abdomen pelvis w con DATE: 10/26/2022 17:02 INDICATION: epigastric/RUQ pain, N/V, elev LFTs/lipase TECHNIQUE: Computed tomography (CT) of the abdomen and pelvis was performed with 100 mL Omnipaque-350 intravenous contrast. Automated exposure control and iterative reconstruction technique were employe d. The dose-length product was 638.30 mGy-cm. COMPARISON: 06/21/2019. FINDINGS: Lower thorax: Mitral and coronary artery calcifications. Small hiatal hernia. Stable focus of somewha t masslike/nodular scarring in the peripheral left lung base. Liver: Steatosis. Biliary/Gallbladder: Gallbladder is absent. No bile duct dilation. Pancreas: Ill-defined parenchymal low density in the pancreatic head. Mild surrounding peripancreatic fluid and inflammatory change. No focal fluid collection. Spleen: Normal. Adrenals:No mass. Kidneys: Punctate nonobstructing left midpole and 7 mm right midpole calcifications. Mild bilateral c ortical thinning and scarring. GI tract: Distal esophageal and gastric wall edema as can be seen with esophagitis/gastritis. No smal l or large bowel dilation. Normal appendix. Diverticulosis without diverticulitis. Mesentery/Peritoneum: No ascites, mass, or free air. Retroperitoneum: No mass. Atherosclerotic abdominal aortic and/or arterial calcifications. Pelvis: Pelvic organs are within normal limits. Soft Tissues: Soft tissues and body wall unremarkable. Bones: No acute osseous finding. IMPRESSION: Uncomplicated acute interstitial pancreatitis. Low-density within the pancreatic head likely represen ts parenchymal edema, noting that early necrosis or a pancreatic mass lesion cannot be excluded. Reviewed, dictated and finalized at location K. IMPRESSION: Uncomplicated acute interstitial pancreatitis. Low-density within the pancreati c head likely represents parenchymal edema, noting that early necrosis or a pike creatic mass lesion cannot be excluded.
--- NOTE | ~2022-10-26 | MR_ITS ---
EXAMINATION: MR MRCP wo/w con/w 3D wo ind DATE: 10/27/2022 17:48 INDICATION: Pancreatitis. Dilated bile ducts. TECHNIQUE: Magnetic resonance imaging (MRI) of the abdomen was performed without and with 14 mL Multi Chanell intravenous contrast. Sequences included coronal T2-weighted FS FSE, coronal T2-weighted FSE, a xial T1-weighted LAVA, coronal FS FIESTA, axial dual-echo T1-weighted SPGR, coronal lava-FLEX, sagitt al T2-weighted FSE, axial T2-weighted FSE, and axial DWI. Thick-slab T2-weighted FSE images were obta ined for magnetic resonance cholangiopancreatography (MRCP). Maximum intensity projection 3-D reconst ructions of the volumetric data were created by the technologist. Postcontrast sequences included cor onal LAVA-flex and time course of axial T1-weighted LAVA. COMPARISON: CT abdomen and pelvis 10/26/2022 FINDINGS: ABDOMEN MRI: There is diffuse hepatic steatosis. The gallbladder is absent. The spleen, adrenal gland s, and kidneys are normal. There is edema of the pancreas with surrounding fat stranding and free flu id. The pancreas enhances throughout. There is a small sliding hiatal hernia. There are no dilated lo ops of bowel. There is a small volume of ascites. ABDOMEN MRCP: The common duct is normal and measures 5 mm. No choledocholithiasis. IMPRESSION: 1. Acute interstitial pancreatitis. 2. Diffuse hepatic steatosis. 3. Small volume of ascites. 4. No choledocholithiasis. Reviewed, dictated and finalized at location A.
--- NOTE | ~2022-10-26 | XR_ITS ---
EXAMINATION: XR chest 2V Exam Date/Time: 10/26/2022 15:20 CDT HISTORY: BACK CP, ABD. PAIN, VOMITING Comparison: 04/12/2021, CT chest 05/24/2021. RESULT: Lines, tubes, and devices: Cholecystectomy clips. Lungs and pleura: Stable right upper lobe granuloma. Senescent changes. Cardiomediastinal silhouette: Stable. Other: No acute osseous or upper abdominal finding. Small 8 and 9 mm calcified splenic artery aneury sms. IMPRESSION: No acute cardiopulmonary process. Reviewed, dictated and finalized at location K.
--- NOTE | ~2022-10-26 | US_ITS ---
EXAMINATION: US abdomen limited DATE: 10/27/2022 09:23 INDICATION: Elevated liver enzymes TECHNIQUE: Multiple grayscale and Doppler ultrasound images of the abdomen were obtained. COMPARISON: 12/21/[address] from yesterday FINDINGS: Bowel gas obscures visualization of the pancreas. The visualized portions of the pancreas a re unremarkable. The liver demonstrates increased echogenicity, heterogenous echotexture, and decreas ed through transmission. No surface nodularity. Normal hepatopetal flow in the main portal vein. The gallbladder is surgically absent. The common bile duct measures 9 mm, likely due to post cholecystect hilary state. IMPRESSION: 1. Diffuse hepatic steatosis. 2. Dilated common bile duct, likely due to post cholecystectomy state. Reviewed, dictated and finalized at location B.
--- NOTE | 2022-10-26 14:08 | ECG_ITS ---
Measurements Intervals [place] Rate: 92 P: -35 CA: 152 QRS: -3 QRSD: 89 T: 68 QT: 364 QTc: 452 Interpretive Statements SINUS RHYTHM NONSPECIFIC ST & T-WAVE ABNORMALITY COMPARED TO ECG 06/22/2019 15:07:10 NO SIGNIFICANT CHANGES Electronically Signed On 10-27-2022 11:50:44 CDT by Triny Welsh M.D.
[2022-10-26 14:27] VITALS: BP 146/66; PULSE 91; RESP 18; TEMP 36.5; O2SAT 99
[2022-10-26 14:44] LABS: Basophils Percent Auto 0.2 % (0.2-1.2); Eosinophils Percent Auto 0.1 % (0-4.4); Hematocrit 42.8 % (37.0-47.0); Hemoglobin 14.3 g/dL (12.0-15.0); Immature Granulocyte Absolute 0.24 K/mm3 (0.00-0.031); Immature Granulocyte Percent A 1.2 % (0-0.5); Lymphocytes Absolute Auto 1.55 K/mm3 (0.9-3.2); Lymphocytes Percent Auto 7.8 % (18.3-44.2); Mean Corpuscular HGB Conc 33.4 g/dl (32-36); Mean Corpuscular Hemoglobin 30.8 pg (26-34); Mean Platelet Volume 9.9 fl (7.4-10.4); Monocytes Absolute Auto 1.3 K/mm3 (0.1-0.6); Monocytes Percent Auto 6.5 % (2.6-8.5); Neutrophils Absolute Auto 16.7 K/mm3 (1.3-6.7); Neutrophils Percent Auto 84.2 % (45.5-73.1); Platelet Count Result 274 k/mm3 (150-375); Red Blood Count 4.65 M/mm3 (4.2-5.4); Red Cell Distribution Width 13.8 % (11.5-14.5); White Blood Count 19.9 K/mm3 (4.5-10.0)
[2022-10-26 15:02] LABS: Alanine Aminotransferase 46 U/L (6-35); Alkaline Phosphatase 76 U/L (38-126); Anion Gap 11 mmol/L (8-16); Aspartate Amino Transferase 58 U/L (14-36); Bilirubin,Total 1.7 mg/dL (0.2-1.3); Blood Urea Nitrogen 44 mg/dL (7-17); Carbon Dioxide 21 mmol/L (22-30); Chloride 101 mmol/L (98-107); Estimated CRCL calculation 25 ml/min; Estimated Glomerular Filt Rate 39; Glucose 222 mg/dL (65-110); Sodium 133 mmol/L (137-145)
[2022-10-26 15:08] LABS: Troponin I < 0.012 ng/mL (0.000-0.034)
[2022-10-26 15:13] LABS: INR 1.1; Prothrombin Time 14.2 Seconds (11.1-14.7)
[2022-10-26 15:14] LABS: Partial Thromboplastin Time 24.9 SECONDS (22.3-36.8)
[2022-10-26 15:39] LABS: Lipase 7575 U/L (23-300)
[2022-10-26 16:15] VITALS: BP 197/98; PULSE 78; RESP 20; O2SAT 100
--- NOTE | 2022-10-26 16:39 | ED.CHESTPAIN ---
HPI - Chest Pain General Chief Complaint: Chest Pain <DANNIE Whitley Last Filed: 10/26/22 18:38> Stated Complaint: chest discomfort since yesterday <DANNIE Whitley Last Filed: 10/26/22 18:38> Time Seen by Provider: 10/26/22 16:11 <DANNIE Whitley Last Filed: 10/26/22 18:38> Source: patient <DANNIE Whitley Last Filed: 10/26/22 18:38> Mode of arrival: ambulatory <DANNIE Whitley Last Filed: 10/26/22 18:38> Limitations: no limitations <DANNIE Whitley Last Filed: 10/26/22 18:38> History of Present Illness HPI narrative: Patient is an 87-year-old female who presents to the ED with report of upper abdominal pain. Patient reports having pain like a band across her upper abdomen, wrapping around to her back for the past couple of days, worsening today. She has not tried anything for the pain. She has never had pain like this before. She also reports having nausea and vomiting associated with the pain today. She reported feeling somewhat constipated the last couple days, but states she had a bowel movement today. Denies any fever, rectal bleeding, melena, urinary symptoms, difficulty breathing. <DANNIE Whitley Last Filed: 10/26/22 18:38> Related Data Home Medications: Home Medications Medication Instructions Recorded Confirmed amlodipine 10 mg tablet 10 mg PO HS 06/21/19 10/26/22 trazodone 100 mg tablet 100 mg PO HS 06/21/19 10/26/22 venlafaxine 75 mg capsule,extended 35 mg PO DAILY 06/21/19 10/26/22 release 24 hr metformin 500 mg tablet 500 mg PO DAILY 01/04/21 10/26/22 hydrochlorothiazide 25 mg tablet 25 mg PO HS 10/01/21 10/26/22 losartan 50 mg tablet 50 mg PO HS 10/01/21 10/26/22 naproxen sodium 220 mg capsule 440 mg PO HS 10/26/22 10/26/22 (Howie) <Nannette Goddard PA-C - Last Filed: 10/26/22 18:38> Allergies/Adverse Reactions: Allergies Allergy/AdvReac Type Severity Reaction Status Date / Time lisinopril Allergy Itching Verified 10/26/22 18:27 <Nannette Goddard PA-C - Last Filed: 10/26/22 18:38> Review of Systems Review of Systems: CONSTITUTIONAL: Denies fever, chills, or sweats. CARDIOVASCULAR: Denies chest pain. RESPIRATORY: Denies dyspnea. GASTROINTESTINAL: See HPI. GENITOURINARY: Denies dysuria or hematuria. SKIN: Denies rash or itching. MUSCULOSKELETAL: See HPI. NEUROLOGIC: Denies headache, numbness, or weakness. <Nannette Goddard PA-C - Last Filed: 10/26/22 18:38> All systems reviewed & are unremarkable except as noted in HPI and below <Nannette Goddard PA-C - Last Filed: 10/26/22 18:38> PMF Past Medical History Medical History: Medical History Anxiety Arthritis Cataracts, bilateral Colonic diverticular abscess Depression Diabetes GERD (gastroesophageal reflux disease) HTN (hypertension) Kidney stones Mitral valve prolapse Obesity Peripheral neuropathy Right distal ureteral calculus <Nannette Goddard PA-C - Last Filed: 10/26/22 18:38> Surgical History Surgical History: Surgical History H/O lithotripsy History of hysterectomy History of total left knee replacement History of ureter stent Hx of cardiac catheterization Hx of cataract surgery Hx of cholecystectomy <Nannette Goddard PA-C - Last Filed: 10/26/22 18:38> Family History Family History: Family History (Updated 10/26/22 @ 18:25 by Griselda Sauer RN) Sibling Diabetes mellitus Carcinoma of colon Mother , age 82 Heart disease Hypertension Cerebrovascular accident Father Diabetes mellitus Hypertension Family history of cardiovascular disease <Nannette Goddard PA-C - Last Filed: 10/26/22 18:38> Social History Social History: Social History (Reviewed 10/26/22 @ 16:44 by Jack
[2022-10-26] MEDS: SODIUM CHLORIDE 0.9% IV 1,000 ML 999 ML IV CONT ×2 (16:42→17:53)
[2022-10-26] MEDS: MORPHINE SULFATE (*CRX) 4 MG/ML INJ IV PUSH ×2 (16:43→17:53)
[2022-10-26] MEDS: ONDANSETRON INJ 4 MG/2 ML VIAL IV PUSH (16:44)
[2022-10-26 16:47] VITALS: BP 180/80; PULSE 96; RESP 14; O2SAT 99
[2022-10-26 17:14] VITALS: BP 164/84; PULSE 90; RESP 21; O2SAT 100
[2022-10-26 18:00] VITALS: BP 156/68; PULSE 86; RESP 16; O2SAT 100
[2022-10-26] MEDS: SODIUM CHLORIDE 0.9% IV 1,000 ML 125 ML IV CONT (18:19)
--- NOTE | 2022-10-26 18:20 | ADMGEN ---
This patient, Giana Yao, was admitted to 3 Med Surg Room 326-01. Patient/family oriented to hospital policies and general routines including ID bracelet, bed and alarms, visiting hours, pain management, procedures, bathroom and other care routines, personal items, smoking policy, room service/diet, and visiting hours. Information on how to activate the Rapid Response Team has been discussed. Patient/Family are encouraged to report perceived risks to care and to ask questions if they do not understand what they are told or what they should do.
[2022-10-26 19:33] LABS: Troponin I < 0.012 ng/mL (0.000-0.034)
[2022-10-26 20:25] VITALS: BP 147/62; PULSE 89; RESP 16; TEMP 36.8; O2SAT 98
--- NOTE | 2022-10-26 21:32 | PM.IMHP ---
H&P: HPI History of Present Illness Date/Time: 10/26/22 21:32 Chief Complaint: Chest pain Narrative: This is an 87-year-old female patient who is complaining of epigastric discomfort. She stated it was a bandlike pressure across her upper abdomen and wrapped around her and went into her back. It has been getting worse over the last couple days. The patient has not tried anything for discomfort. She also reports having nausea and vomiting. She also has been feeling bloated and constipation. She denies any fever chills. No shortness of breath. Her white count was noted to be 19.9. Sodium 133. Creatinine 1.3 BUN 44. Patient's past creatinine has been anywhere from 1.1-1.9. Her blood sugar is 222. Total bilirubin 1.7. AST is 58 and ALT 46. The patient has had a history of cholecystectomy in the past. Her troponins are negative x3. Lipase is 7575. Abdominal pelvis CT was read as the following Uncomplicated acute interstitial pancreatitis. Low-density within the pancreatic head likely represents parenchymal edema, noting that early necrosis or a pancreatic mass lesion cannot be excluded.. The patient was given aspirin, morphine, IV fluids, and Zofran. The patient is being admitted to inpatient status on the date of service of 10/26/2022 Review of Systems Review of Systems: All systems reviewed & are unremarkable except as noted in HPI and below Constitutional: Constitutional: Reports as per HPI and Reports no additional constitutional complaints Eyes: Eyes: Reports as per HPI and Reports no additional eye complaints ENT: Reports system reviewed and no additional complaints, except as documented and Reports Normal hearing present Cardiovascular: Cardiovascular: Reports no additional cardiovascular complaints Respiratory: Respiratory: Reports no additional respiratory complaints and Reports no additional respiratory complaints Gastrointestinal: Gastrointestinal: Reports as per HPI and Reports no additional gastrointestinal complaints Musculoskeletal: Musculoskeletal: Reports no additional musculoskeletal complaints Integumentary/Breasts: Skin/Breast: Reports system reviewed and no additional complaints, except as docu and Reports as per HPI Neurologic: Reports system reviewed and no additional complaints, except as documented, Reports as per HPI and Reports Normal hearing present Psychiatric: Psychiatric: Reports no additional psychiatric complaints and Reports as per HPI Endocrine: Endocrine: Reports no additional endocrine complaints Hematologic/Lymphatic: Hematologic/Lymphatic: Reports no additional hematologic/lymphatic complaints Allergic/Immunologic: Allergic/Immunologic: Reports no additional allergic/immunologic complaints PMFSH Past Medical History Medical History (Updated 10/27/22 @ 00:05 by Charo Luna NP) Anxiety Arthritis Cataracts, bilateral Colonic diverticular abscess Depression Diabetes GERD (gastroesophageal reflux disease) History of kidney stones HTN (hypertension) Kidney stones Mitral valve prolapse Obesity VARGAS on CPAP Peripheral neuropathy Right distal ureteral calculus Surgical History Surgical History (Updated 10/26/22 @ 23:57 by Charo Luna NP) H/O lithotripsy History of bladder surgery History of hysterectomy History of total left knee replacement History of ureter stent Hx of cardiac catheterization Hx of cataract surgery Hx of cholecystectomy Family History Family History Sibling Diabetes mellitus Carcinoma of colon Mother , age 82 Heart disease Hypertension Cerebrovascular accident Father Diabetes mellitus Hypertension Family history of cardiovascular disease Social History Social History (Updated 10/26/22 @ 23:51 by Charo Luna NP) Social History: she has 4 children. she is and lives with her . 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
[2022-10-26 22:16] LABS: Troponin I 0.013 ng/mL (0.000-0.034)
[2022-10-27 00:14] VITALS: PULSE 78; O2SAT 95
[2022-10-27] MEDS: ONDANSETRON INJ 4 MG/2 ML VIAL IV PUSH (00:42)
[2022-10-27] MEDS: MORPHINE SULFATE (*CRX) 4 MG/ML INJ IV PUSH ×2 (00:42→08:58)
[2022-10-27 03:05] VITALS: PULSE 71; O2SAT 95
[2022-10-27 06:00] VITALS: BP 130/68; PULSE 95; RESP 16; TEMP 37; O2SAT 95
[2022-10-27 06:12] LABS: Glucose Point of Care 159 mg/dl (65-105)
[2022-10-27 07:43] LABS: Basophils Absolute Auto 0.1 K/mm3 (0.0-0.1); Basophils Percent Auto 0.3 % (0.2-1.2); Eosinophils Percent Auto 0.1 % (0-4.4); Hematocrit 40.7 % (37.0-47.0); Hemoglobin 13.9 g/dL (12.0-15.0); Immature Granulocyte Absolute 0.33 K/mm3 (0.00-0.031); Immature Granulocyte Percent A 1.2 % (0-0.5); Lymphocytes Absolute Auto 1.24 K/mm3 (0.9-3.2); Lymphocytes Percent Auto 4.5 % (18.3-44.2); Mean Corpuscular HGB Conc 34.2 g/dl (32-36); Mean Corpuscular Hemoglobin 31.5 pg (26-34); Mean Corpuscular Volume 92.3 fl (80-100); Mean Platelet Volume 10.1 fl (7.4-10.4); Monocytes Absolute Auto 1.7 K/mm3 (0.1-0.6); Monocytes Percent Auto 6.1 % (2.6-8.5); Neutrophils Absolute Auto 24.3 K/mm3 (1.3-6.7); Neutrophils Percent Auto 87.8 % (45.5-73.1); Platelet Count Result 223 k/mm3 (150-375); Red Blood Count 4.41 M/mm3 (4.2-5.4); White Blood Count 27.7 K/mm3 (4.5-10.0)
[2022-10-27 07:50] LABS: Cholesterol 95 mg/dL (0-200); HDL Direct 55 mg/dL; Triglycerides 156 mg/dL (<150)
[2022-10-27 08:00] LABS: Alanine Aminotransferase 43 U/L (6-35); Albumin Level 3.3 g/dL (3.5-5.1); Alkaline Phosphatase 61 U/L (38-126); Anion Gap 7 mmol/L (8-16); Aspartate Amino Transferase 47 U/L (14-36); Bilirubin,Total 1.8 mg/dL (0.2-1.3); Blood Urea Nitrogen 26 mg/dL (7-17); Calcium 7.9 mg/dL (8.4-10.2); Carbon Dioxide 23 mmol/L (22-30); Chloride 106 mmol/L (98-107); Estimated CRCL calculation 32 ml/min; Estimated Glomerular Filt Rate 53; Glucose 156 mg/dL (65-110); Lactate Dehydrogenase 251 U/L (120-246); Magnesium 1.9 mg/dL (1.6-2.3); Potassium 3.1 mmol/L (3.4-5.0); Sodium 136 mmol/L (137-145)
[2022-10-27 08:02] LABS: Lactic Acid Reflex 1.4 mmol/L (0.7-2.0)
[2022-10-27 08:12] LABS: LDL Cholesterol Direct < 30 mg/dL; Lipase 2958 U/L (23-300)
[2022-10-27 08:43] LABS: Hepatitis B Surface Antigen Negative (Negative)
[2022-10-27 08:49] LABS: HAV RESULT Negative (Negative); Hepatitis B Core IgM Result Negative (Negative)
[2022-10-27 09:01] LABS: Hepatitis C Virus Antibody Negative (Negative)
[2022-10-27 11:32] LABS: Glucose Point of Care 161 mg/dl (65-105)
[2022-10-27] MEDS: SODIUM CHLORIDE 0.9% IV 1,000 ML 125 ML IV CONT (11:37)
[2022-10-27] MEDS: POTASSIUM CHLORIDE INJ 40 MEQ in SODIUM CHLORIDE 0.9% IV 500 ML 130 MEQ IVPB (11:41)
--- NOTE | 2022-10-27 13:59 | PM.IMPN ---
Progress Note: A&P Assessment and Plan (1) Acute pancreatitis: Qualifiers: Acute pancreatitis complication: unspecified Pancreatitis type: unspecified pancreatitis type Qualified Code(s): K85.90 - Acute pancreatitis without necrosis or infection, unspecified Code(s): K85.90 - Acute pancreatitis without necrosis or infection, unspecified Status: Acute Assessment and Plan: CT was read as noncomplicated acute interstitial pancreatitis. Low-density within the pancreatic head likely represents parenchymal edema, noting that early necrosis or a pancreatic mass lesion cannot be excluded Patient remains NPO Current lipase is 2958, trending down. Patient with elevated triglycerides at 156 She has a history of cholecystectomy GI has been consulted for elevated transaminase Ultrasound with dilated common bile duct. The patient has not been on any new medications however hydrochlorothiazide could cause pancreatitis. Continue with IV fluids Continue with analgesics (2) Elevated liver enzymes: Code(s): R74.8 - Abnormal levels of other serum enzymes Status: Acute Assessment and Plan: Hepatitis panels ordered Ultrasound of the abdomen revealing hepatic steatosis GI consult was greatly be appreciated. The patient has a history of cholecystectomy. (3) Diabetes: Code(s): E11.9 - Type 2 diabetes mellitus without complications Status: Acute Assessment and Plan: Accu-Cheks every 6 hours with sliding scale insulin as the patient is NPO. Hypoglycemic protocol. (4) Mitral valve prolapse: Code(s): I34.1 - Nonrheumatic mitral (valve) prolapse Status: Acute Assessment and Plan: Unknown when patient had her last echo. (5) VARGAS on CPAP: Code(s): G47.33 - Obstructive sleep apnea (adult) (pediatric); Z99.89 - Dependence on other enabling machines and devices Status: Acute Assessment and Plan: The patient may use her own home CPAP (6) HTN (hypertension): Code(s): I10 - Essential (primary) hypertension Status: Acute Assessment and Plan: P.r.n. hydralazine Subjective Date/time seen: 10/27/22 13:59 Interval history: Patient with abdominal pain radiating to the back. Patient did have nausea vomiting but this is since resolved since being admitted to the hospital. Patient denies body aches, chills, dizziness, chest pain, shortness a breath and diarrhea. Patient with elevated lipase including for pancreatitis. GI has been consulted. Review of Systems Review of Systems: All systems reviewed & are unremarkable except as noted in HPI and below Exam Narrative: GENERAL: Comfortable, no acute distress HENMT: moist mucous membranes EYES: EOM intact b/l NECK: no lymphadenopathy RESPIRATORY: clear to auscultation CARDIO: RRR GI: soft, Upper abdomen tender to palpation, abdomen does appear to be mildly distended. SKIN: no rashes EXTREMITIES: no edema, redness or tenderness Objective Data Vital Signs Vital Signs: Vital Signs - 24 hr 10/26/22 14:27 10/26/22 17:00 10/26/22 16:15 Temperature 97.7 F Pulse Rate 91 78 Respiratory Rate 18 20 Blood Pressure 146/66 H 197/98 H Pulse Oximetry 99 100 Oxygen Delivery Room Air Room Air 10/26/22 16:47 10/26/22 17:14 10/26/22 18:00 Temperature Pulse Rate 96 90 86 Respiratory Rate 14 21 H 16 Blood Pressure 180/80 H 164/84 H 156/68 H Pulse Oximetry 99 100 100 Oxygen Delivery 10/26/22 20:25 10/26/22 20:00 10/27/22 00:14 Temperature 98.3 F Pulse Rate 89 78 Respiratory Rate 16 Blood Pressure 147/62 H Pulse Oximetry 98 95 Oxygen Delivery Room Air CPAP 10/27/22 03:05 10/27/22 06:00 Temperature 98.6 F Pulse Rate 71 95 Respiratory Rate 16 Blood Pressure 130/68 Pulse Oximetry 95 95 Oxygen Delivery CPAP Intake/Output Intake/Output: Intake & Output 09/26
[2022-10-27 14:00] VITALS: BP 137/58; PULSE 94; RESP 18; TEMP 36.2; O2SAT 94
--- NOTE | 2022-10-27 15:15 | WPDGICN ---
Assessment and Plan Assessment and plan (1) Acute pancreatitis: Qualifiers: Acute pancreatitis complication: unspecified Pancreatitis type: unspecified pancreatitis type Qualified Code(s): K85.90 - Acute pancreatitis without necrosis or infection, unspecified Code(s): K85.90 - Acute pancreatitis without necrosis or infection, unspecified Status: Acute Assessment and Plan: new onset she is post cholecystectomy CT reviewed, mild dilated bile duct but can be seen post cholecystectomy will get MRCP for better visualization of biliary system and pancreas medical support (2) Elevated liver enzymes: Code(s): R74.8 - Abnormal levels of other serum enzymes Status: Acute Assessment and Plan: mild elevated could be from pancreatitis will get mrcp trend enzymes (3) Nausea and vomiting in adult: Code(s): R11.2 - Nausea with vomiting, unspecified Status: Acute Assessment and Plan: better (4) Upper abdominal pain: Code(s): R10.10 - Upper abdominal pain, unspecified Status: Acute GI Consult Note Consult date/time: 10/27/22 15:15 Reason for consult: pancreatitis, n/v, abdominal pain HPI: Giana Yao is a 87 year old female with h/o DM, diverticulosis, HTN and cholecystectomy. She has been dealing with bronchitis for 2 weeks for which she took antibiotics and steroids. She came here with almost 2 days of progressive pain described as bandlike pressure across her upper abdomen and wrapped around her and went into her back that was.? It has been getting worse over the last couple days.?She also reports having nausea and vomiting and bloated. Her white count was 19.9.? Sodium 133.? Creatinine 1.3 BUN 44.? blood sugar is 222.? Total bilirubin 1.7.? AST is 58 and ALT 46.?Her troponins are negative x3.? Lipase is 7575.? Abdominal pelvis CT was read as the following?Uncomplicated acute interstitial pancreatitis. Low-density within the pancreatic head likely represents parenchymal edema, noting that early necrosis or a pancreatic mass lesion cannot be excluded. She is feeling better now. Never had pancreatitis, denies alcohol. Review of Systems Constitutional: Constitutional: Denies chills Eyes: Eyes: Denies blurry vision ENT: Denies epistaxis Cardiovascular: Cardiovascular: Denies chest pain Respiratory: Respiratory: Reports cough Gastrointestinal: Gastrointestinal: Reports abdominal pain, Reports nausea and Reports vomiting Genitourinary: Genitourinary: Denies dysuria Musculoskeletal: Musculoskeletal: Reports back pain Integumentary/Breasts: Skin/Breast: Denies rash Neurologic: Denies Abnormal speech present Psychiatric: Psychiatric: Denies behavioral changes [facility] Past Medical History Medical History (Updated 10/27/22 @ 15:19 by Sanjay Grijalva MD) Anxiety Arthritis Cataracts, bilateral Colonic diverticular abscess Depression Diabetes GERD (gastroesophageal reflux disease) History of kidney stones HTN (hypertension) Kidney stones Mitral valve prolapse Nausea and vomiting in adult Obesity VARGAS on CPAP Peripheral neuropathy Right distal ureteral calculus Upper abdominal pain Surgical History Surgical History (Updated 10/26/22 @ 23:57 by Charo Luna NP) H/O lithotripsy History of bladder surgery History of hysterectomy History of total left knee replacement History of ureter stent Hx of cardiac catheterization Hx of cataract surgery Hx of cholecystectomy Family History Family History Sibling Diabetes mellitus Carcinoma of colon Mother , age 82 Heart disease Hypertension Cerebrovascular accident Father Diabetes mellitus Hypertension Family history of cardiovascular disease Social History Social History (Updated 10/26/22 @ 23:51 by Charo Luna NP) Social History: she has 4 children. she is and lives with her
[2022-10-27 15:49] LABS: Appearance Urine Cloudy (Clear); Bacteria Urine None Seen /hpf; Bilirubin Urine Negative (Negative); Blood Urine Negative (Negative); Color Urine Yellow (Yellow); Glucose Urine UA Negative (Negative); Ketones Urine Negative (Negative); Leukocyte Esterase Ur 1+ LEU/UL (Negative); Need Manual Microscopic Reviewed; Nitrate Urine Negative (Negative); Protein Urine 1+ mg/dL (Negative); RBC Urine 0-2 /hpf (0-2); Specific Grav Ur 1.032 (1.001-1.035); Squamous Epithelial Cell Urine Few /hpf (Few); Urobilinogen Urine 0.2 mg/dL (<2.0)
[2022-10-27 15:50] LABS: Add Urine Microscopic? YES
[2022-10-27 18:01] LABS: Glucose Point of Care 171 mg/dl (65-105)
[2022-10-27 22:00] VITALS: BP 140/54; PULSE 95; RESP 15; TEMP 36.3; O2SAT 95
[2022-10-28 00:13] LABS: Glucose Point of Care 173 mg/dl (65-105)
[2022-10-28 05:23] LABS: Glucose Point of Care 169 mg/dl (65-105)
[2022-10-28 06:00] VITALS: BP 141/68; PULSE 90; RESP 16; TEMP 36.2; O2SAT 96
[2022-10-28 07:43] LABS: Basophils Absolute Auto 0.1 K/mm3 (0.0-0.1); Basophils Percent Auto 0.3 % (0.2-1.2); Eosinophils Percent Auto 0.1 % (0-4.4); Hematocrit 35.5 % (37.0-47.0); Hemoglobin 11.8 g/dL (12.0-15.0); Immature Granulocyte Absolute 1.32 K/mm3 (0.00-0.031); Immature Granulocyte Percent A 4.1 % (0-0.5); Lymphocytes Absolute Auto 1.17 K/mm3 (0.9-3.2); Lymphocytes Percent Auto 3.7 % (18.3-44.2); Mean Corpuscular HGB Conc 33.2 g/dl (32-36); Mean Corpuscular Hemoglobin 31.2 pg (26-34); Mean Corpuscular Volume 93.9 fl (80-100); Mean Platelet Volume 10.2 fl (7.4-10.4); Monocytes Absolute Auto 1.4 K/mm3 (0.1-0.6); Monocytes Percent Auto 4.4 % (2.6-8.5); Neutrophils Absolute Auto 27.9 K/mm3 (1.3-6.7); Neutrophils Percent Auto 87.4 % (45.5-73.1); Platelet Count Result 183 k/mm3 (150-375); Red Blood Count 3.78 M/mm3 (4.2-5.4); Red Cell Distribution Width 14.6 % (11.5-14.5); White Blood Count 31.8 K/mm3 (4.5-10.0)
[2022-10-28 07:50] LABS: Alanine Aminotransferase 34 U/L (6-35); Albumin Level 2.7 g/dL (3.5-5.1); Alkaline Phosphatase 61 U/L (38-126); Anion Gap 7 mmol/L (8-16); Aspartate Amino Transferase 45 U/L (14-36); Bilirubin,Total 1.3 mg/dL (0.2-1.3); Blood Urea Nitrogen 17 mg/dL (7-17); Calcium 7.3 mg/dL (8.4-10.2); Carbon Dioxide 22 mmol/L (22-30); Chloride 109 mmol/L (98-107); Estimated CRCL calculation 36 ml/min; Estimated Glomerular Filt Rate 60; Glucose 159 mg/dL (65-110); Lipase 547 U/L (23-300); Potassium 3.3 mmol/L (3.4-5.0); Sodium 138 mmol/L (137-145)
[2022-10-28 11:47] LABS: Glucose Point of Care 202 mg/dl (65-105)
--- NOTE | 2022-10-28 12:34 | PC.NURSE ---
THUY Palm notified that the patient's IV located in the right antecubital space infiltrated with was running Vancomycin. Patient is a difficult IV stick. Arpita verified it is ok to order a midline. Will continue to monitor R A/C site.
[2022-10-28 13:37] LABS: Basophils Absolute Auto 0.1 K/mm3 (0.0-0.1); Basophils Percent Auto 0.3 % (0.2-1.2); Eosinophils Percent Auto 0.1 % (0-4.4); Hemoglobin 12.2 g/dL (12.0-15.0); Immature Granulocyte Absolute 0.98 K/mm3 (0.00-0.031); Immature Granulocyte Percent A 2.9 % (0-0.5); Lymphocytes Absolute Auto 1.36 K/mm3 (0.9-3.2); Mean Corpuscular HGB Conc 33.9 g/dl (32-36); Mean Corpuscular Hemoglobin 31.3 pg (26-34); Mean Corpuscular Volume 92.3 fl (80-100); Mean Platelet Volume 10.4 fl (7.4-10.4); Monocytes Absolute Auto 1.4 K/mm3 (0.1-0.6); Neutrophils Absolute Auto 29.9 K/mm3 (1.3-6.7); Neutrophils Percent Auto 88.7 % (45.5-73.1); Platelet Count Result 187 k/mm3 (150-375); Red Cell Distribution Width 14.6 % (11.5-14.5); White Blood Count 33.7 K/mm3 (4.5-10.0)
[2022-10-28 14:00] VITALS: BP 152/74; PULSE 92; RESP 16; TEMP 36.3; O2SAT 97
--- NOTE | 2022-10-28 14:02 | WPDGIPROGNO ---
Progress Note: A&P Assessment and Plan (1) Acute pancreatitis: Qualifiers: Acute pancreatitis complication: unspecified Pancreatitis type: unspecified pancreatitis type Qualified Code(s): K85.90 - Acute pancreatitis without necrosis or infection, unspecified Code(s): K85.90 - Acute pancreatitis without necrosis or infection, unspecified Status: Acute Assessment and Plan: advance diet- no more nausea and pain almost gone MRCP reviewed, no mass, no stones Acute interstitial pancreatitis. 2. Diffuse hepatic steatosis. 3. Small volume of ascites. 4. No choledocholithiasis. (2) Elevated liver enzymes: Code(s): R74.8 - Abnormal levels of other serum enzymes Status: Acute Assessment and Plan: trending down (3) Nausea and vomiting in adult: Code(s): R11.2 - Nausea with vomiting, unspecified Status: Acute Assessment and Plan: resolved (4) Upper abdominal pain: Code(s): R10.10 - Upper abdominal pain, unspecified Status: Acute Assessment and Plan: improved (5) Leukocytosis: Code(s): D72.829 - Elevated white blood cell count, unspecified Status: Acute Assessment and Plan: empirically on abx probably from pancreatitis, also steroids prior admission Subjective Date/time seen: 10/28/22 14:02 Interval history: overall better, pain almost gone, no nausea. She is thristy Review of Systems Review of Systems: All systems reviewed & are unremarkable except as noted in HPI and below Exam Const: General: comfortable and no acute distress HENMT: Face/Nose/Sinus: Normal nares present Eyes: General: appearance normal, both eyes and all related structures Neck: Neck: no JVD Resp: Auscultation: clear to auscultation bilaterally Cardio: Rate: regular rate Rhythm: regular rhythm GI: GI Palp: Yes Soft to palpation and No Tenderness to palpation present (GI) Auscultation: normal bowel sounds Skin: General skin exam: normal color Neuro: Speech: normal speech Motor exam (neuro): 5/5 motor strength present throughout Extrem: General: normal to inspection Psych: Mental Status: mental status grossly normal Objective Data Vital Signs Vital Signs: Vital Signs - 24 hr 10/27/22 22:00 10/27/22 20:00 10/28/22 06:00 Temperature 97.3 F L 97.2 F L Pulse Rate 95 90 Respiratory Rate 15 16 Blood Pressure 140/54 L 141/68 H Pulse Oximetry 95 96 Oxygen Delivery Room Air Intake/Output Intake/Output: Intake & Output 10/25/22 10/26/22 10/27/22 10/28/22 23:59 23:59 23:59 23:59 Intake Total 1520 250 Output Total 300 Balance 1220 250 Meds/Results Medications: Active Medications Generic Name Dose Route Start Last Admin Trade Name Freq PRN Reason Stop Dose Admin Dextrose 12.5 gm 10/27/22 00:03 Dextrose 50% 25 Gm/50 Ml Syringe IV PUSH PRN PRN Hypoglycemia Protocol Glucagon 1 mg 10/27/22 00:03 Glucagon For Inj 1 Mg Vial IM PRN PRN Hypoglycemia Protocol Glucose 15 gm 10/27/22 00:03 Glucose Oral Gel 15 Gm Of Glucse In 37.5 Gm Tube PO PRN PRN Hypoglycemia Protocol Hydralazine HCl 10 mg 10/26/22 23:49 Hydralazine Hcl 20 Mg/Ml Vial IV PUSH Q8H PRN Blood Pressure - High Sodium Chloride 1,000 mls @ 125 mls/hr 10/26/22 17:35 10/27/22 11:37 Normal Saline Iv IV CONT 125 mls/hr .Q8H PURVI Administration Dextrose 1,000 mls @ 100 mls/hr 10/27/22 00:03 Dextrose 5% 1,000 Ml IVPB PRN PRN Hypoglycemia Protocol Imipenem/Cilastatin Sodium 500 mg in 100 mls @ 300 mls/hr 10/28/22 12:00 Primaxin 500 Mg/Ns 100 Ml IVPB Q8H PURVI Vancomycin HCl 1,250 mg in 250 mls @ 166.667 mls/hr 10/28/22 10:00 10/28/22 12:02 Vancomycin 1,250 Mg/D5w 250 Ml IVPB Infused Q36H PURVI Infusion Insulin Aspart 2 - 5 units 10/27/22 06:00 10/28/22 12:37 Insulin Aspart (*Bkc) 100 Units/Ml SUB-Q N
--- NOTE | 2022-10-28 14:35 | PM.IMPN ---
Progress Note: A&P Assessment and Plan (1) Acute pancreatitis: Qualifiers: Acute pancreatitis complication: unspecified Pancreatitis type: unspecified pancreatitis type Qualified Code(s): K85.90 - Acute pancreatitis without necrosis or infection, unspecified Code(s): K85.90 - Acute pancreatitis without necrosis or infection, unspecified Status: Acute Assessment and Plan: CT was read as noncomplicated acute interstitial pancreatitis. Low-density within the pancreatic head likely represents parenchymal edema, noting that early necrosis or a pancreatic mass lesion cannot be excluded Patient remains NPO Current lipase is 2958, trending down. Patient with elevated triglycerides at 156 She has a history of cholecystectomy GI has been consulted for elevated transaminase Ultrasound with dilated common bile duct. The patient has not been on any new medications however hydrochlorothiazide could cause pancreatitis. Continue with IV fluids Continue with analgesics White blood cell count 19.9 admission has now increased to 31.8. Patient started on empiric antibiotic therapy of vancomycin and Primaxin. Necrosis of the pancreas. (2) Elevated liver enzymes: Code(s): R74.8 - Abnormal levels of other serum enzymes Status: Acute Assessment and Plan: Hepatitis panel negative. Ultrasound of the abdomen revealing hepatic steatosis GI consult was greatly be appreciated. The patient has a history of cholecystectomy. LFTs improving. (3) Diabetes: Code(s): E11.9 - Type 2 diabetes mellitus without complications Status: Acute Assessment and Plan: Accu-Cheks every 6 hours with sliding scale insulin as the patient is NPO. Hypoglycemic protocol. (4) Mitral valve prolapse: Code(s): I34.1 - Nonrheumatic mitral (valve) prolapse Status: Acute Assessment and Plan: Unknown when patient had her last echo. (5) VARGAS on CPAP: Code(s): G47.33 - Obstructive sleep apnea (adult) (pediatric); Z99.89 - Dependence on other enabling machines and devices Status: Acute Assessment and Plan: The patient may use her own home CPAP (6) HTN (hypertension): Code(s): I10 - Essential (primary) hypertension Status: Acute Assessment and Plan: P.r.n. hydralazine Subjective Date/time seen: 10/28/22 14:35 Interval history: Patient feeling better today although her white count is continuing to increase. Patient started on broad spectrum antibiotics. Continuing to have abdominal discomfort although it has improving since admission. No longer nauseated or vomiting. Denies chills, body aches, shortness of breath and dysuria. Review of Systems Review of Systems: All systems reviewed & are unremarkable except as noted in HPI and below Exam Narrative: GENERAL: Comfortable, no acute distress HENMT: moist mucous membranes EYES: EOM intact b/l NECK: no lymphadenopathy RESPIRATORY: clear to auscultation CARDIO: RRR GI: soft, Upper abdomen tender to palpation, abdomen does appear to be mildly distended. SKIN: no rashes EXTREMITIES: no edema, redness or tenderness Objective Data Vital Signs Vital Signs: Vital Signs - 24 hr 10/27/22 22:00 10/27/22 20:00 10/28/22 06:00 Temperature 97.3 F L 97.2 F L Pulse Rate 95 90 Respiratory Rate 15 16 Blood Pressure 140/54 L 141/68 H Pulse Oximetry 95 96 Oxygen Delivery Room Air 10/28/22 14:00 Temperature 97.4 F L Pulse Rate 92 Respiratory Rate 16 Blood Pressure 152/74 H Pulse Oximetry 97 Oxygen Delivery Intake/Output Intake/Output: Intake & Output 10/25/22 10/26/22 10/27/22 10/28/22 23:59 23:59 23:59 23:59 Intake Total 1520 250 Output Total 300 Balance 1220 250 Meds/Results Medications: Active Medications Generic Name Dose Route Start Last Admin Trade Name Freq PRN Reason Stop
[2022-10-28 15:28] LABS: Lactic Acid Reflex 1.3 mmol/L (0.7-2.0)
[2022-10-28] MEDS: ACETAMINOPHEN 325 MG TABLET 650 MG PO (18:31)
[2022-10-28] MEDS: POTASSIUM CHLORIDE 20 MEQ PACKET (FOR LIQUID) 40 MEQ PO (20:43)
[2022-10-28 22:00] VITALS: BP 155/73; PULSE 92; RESP 18; TEMP 36.2; O2SAT 96
[2022-10-28 23:27] VITALS: PULSE 74; O2SAT 96
[2022-10-29 00:41] LABS: Glucose Point of Care 189 mg/dl (65-105)
--- NOTE | 2022-10-29 01:20 | PC.NURSE ---
2340 10/28/[address] Mullins of red flagged notice - preliminary result - urine culture- enterococcus species- pt on vanco IVPB q 36 hr/ primaxin IVPB q 8 hr No orders received
[2022-10-29 01:48] VITALS: PULSE 74; O2SAT 96
[2022-10-29 06:00] VITALS: BP 154/72; PULSE 83; RESP 20; TEMP 36; O2SAT 98
[2022-10-29 06:53] LABS: Glucose Point of Care 167 mg/dl (65-105)
[2022-10-29 06:55] LABS: Basophils Absolute Auto 0.1 K/mm3 (0.0-0.1); Basophils Percent Auto 0.2 % (0.2-1.2); Eosinophils Absolute Auto 0.1 K/mm3 (0-0.3); Eosinophils Percent Auto 0.4 % (0-4.4); Hematocrit 35.4 % (37.0-47.0); Hemoglobin 11.7 g/dL (12.0-15.0); Immature Granulocyte Absolute 1.15 K/mm3 (0.00-0.031); Lymphocytes Percent Auto 4.2 % (18.3-44.2); Mean Corpuscular HGB Conc 33.1 g/dl (32-36); Mean Corpuscular Volume 93.9 fl (80-100); Mean Platelet Volume 10.6 fl (7.4-10.4); Monocytes Absolute Auto 1.4 K/mm3 (0.1-0.6); Neutrophils Absolute Auto 24.6 K/mm3 (1.3-6.7); Neutrophils Percent Auto 86.2 % (45.5-73.1); Platelet Count Result 185 k/mm3 (150-375); Red Blood Count 3.77 M/mm3 (4.2-5.4); Red Cell Distribution Width 14.5 % (11.5-14.5); White Blood Count 28.6 K/mm3 (4.5-10.0)
[2022-10-29 07:12] LABS: Alanine Aminotransferase 39 U/L (6-35); Albumin Level 2.9 g/dL (3.5-5.1); Alkaline Phosphatase 92 U/L (38-126); Anion Gap 4 mmol/L (8-16); Aspartate Amino Transferase 57 U/L (14-36); Bilirubin,Total 1.5 mg/dL (0.2-1.3); Blood Urea Nitrogen 13 mg/dL (7-17); Calcium 7.7 mg/dL (8.4-10.2); Carbon Dioxide 26 mmol/L (22-30); Chloride 104 mmol/L (98-107); Estimated CRCL calculation 40 ml/min; Estimated Glomerular Filt Rate > 60; Glucose 178 mg/dL (65-110); Lipase 136 U/L (23-300); Potassium 3.1 mmol/L (3.4-5.0); Sodium 134 mmol/L (137-145)
[2022-10-29 07:59] VITALS: O2SAT 94
[2022-10-29 08:25] LABS: CRP 31.8 mg/dL (<1.0)
[2022-10-29] MEDS: ACETAMINOPHEN 325 MG TABLET 650 MG PO (09:08)
--- NOTE | 2022-10-29 09:53 | PM.IMPN ---
Progress Note: A&P Assessment and Plan (1) Acute pancreatitis: Qualifiers: Acute pancreatitis complication: unspecified Pancreatitis type: unspecified pancreatitis type Qualified Code(s): K85.90 - Acute pancreatitis without necrosis or infection, unspecified Code(s): K85.90 - Acute pancreatitis without necrosis or infection, unspecified Status: Acute Assessment and Plan: CT was read as noncomplicated acute interstitial pancreatitis. Low-density within the pancreatic head likely represents parenchymal edema, noting that early necrosis or a pancreatic mass lesion cannot be excluded. Hx of cholecystectomy. Lipase now within normal range. Patient with elevated triglycerides at 156 GI has been consulted for elevated transaminase Ultrasound with dilated common bile duct. MRCP revealing acute interstitial pancreatitis, diffuse hepatic steatosis, small volume ascites and no choledocholithiasis. The patient has not been on any new medications however hydrochlorothiazide could cause pancreatitis. Patient started on empiric antibiotic therapy of vancomycin and Primaxin due to concern for necrosis of the pancreas. This was discussed with attending physician. 4/5 WBC down to 28.6 after starting antibiotics. (2) Urinary tract infection: Code(s): N39.0 - Urinary tract infection, site not specified Status: Acute Assessment and Plan: UA with +1 leukocyte Estrace and 11-20 white blood cells. Patient originally started on antibiotics for UTI although culture positive for Enterococcus. I discussed with ID pharmacist and patient is currently being covered due to being on vancomycin and Primaxin. Patient possibly needing IV antibiotics on discharge. (3) Elevated liver enzymes: Code(s): R74.8 - Abnormal levels of other serum enzymes Status: Acute Assessment and Plan: Hepatitis panel negative. Ultrasound of the abdomen revealing hepatic steatosis GI consult was greatly be appreciated. The patient has a history of cholecystectomy. LFTs improving. (4) Diabetes: Code(s): E11.9 - Type 2 diabetes mellitus without complications Status: Acute Assessment and Plan: Accu-Cheks every 6 hours with sliding scale insulin as the patient is NPO. Hypoglycemic protocol. (5) Mitral valve prolapse: Code(s): I34.1 - Nonrheumatic mitral (valve) prolapse Status: Acute Assessment and Plan: Unknown when patient had her last echo. Echocardiogram ordered (6) VARGAS on CPAP: Code(s): G47.33 - Obstructive sleep apnea (adult) (pediatric); Z99.89 - Dependence on other enabling machines and devices Status: Acute Assessment and Plan: The patient may use her own home CPAP (7) HTN (hypertension): Code(s): I10 - Essential (primary) hypertension Status: Acute Assessment and Plan: P.r.n. hydralazine Subjective Date/time seen: 10/29/22 09:53 Interval history: Patient's and grandchildren in the room during interview. Patient gave consent to discuss medical care front of her family. Patient doing much better today and white blood cell count has started to come down. Today white blood cell count 28. Patient is advancing diet and tolerating well urinary she denies chest pain, shortness a breath, nausea, vomiting, diarrhea, abdominal pain fever. Review of Systems Review of Systems: All systems reviewed & are unremarkable except as noted in HPI and below Exam Narrative: GENERAL: Comfortable, no acute distress HENMT: moist mucous membranes EYES: EOM intact b/l NECK: no lymphadenopathy RESPIRATORY: clear to auscultation CARDIO: RRR GI: soft, Nontender, bowel sounds x4 SKIN: no rashes EXTREMITIES: no edema, redness or tenderness Objective Data Vital Signs Vital Signs: Vital Signs - 24 hr 10/28/22 14:00 10/28/22 23:27 10/28/22
[2022-10-29 11:54] LABS: Glucose Point of Care 272 mg/dl (65-105)
[2022-10-29] MEDS: POTASSIUM CHLORIDE 20 MEQ PACKET (FOR LIQUID) 60 MEQ PO (11:56)
[2022-10-29 14:00] VITALS: BP 145/70; PULSE 82; RESP 18; TEMP 36.3; O2SAT 98
--- NOTE | 2022-10-29 15:19 | WPDGIPROGNO ---
Progress Note: A&P Assessment and Plan (1) Acute pancreatitis: Qualifiers: Acute pancreatitis complication: unspecified Pancreatitis type: unspecified pancreatitis type Qualified Code(s): K85.90 - Acute pancreatitis without necrosis or infection, unspecified Code(s): K85.90 - Acute pancreatitis without necrosis or infection, unspecified Status: Acute Assessment and Plan: advance to low fat diet overall much better home in 1-2 days (2) Elevated liver enzymes: Code(s): R74.8 - Abnormal levels of other serum enzymes Status: Acute Assessment and Plan: from pancreatitis monitor no choledocholithiasis (3) Nausea and vomiting in adult: Code(s): R11.2 - Nausea with vomiting, unspecified Status: Acute Assessment and Plan: resolved (4) Upper abdominal pain: Code(s): R10.10 - Upper abdominal pain, unspecified Status: Acute Assessment and Plan: resolved (5) Leukocytosis: Code(s): D72.829 - Elevated white blood cell count, unspecified Status: Acute Assessment and Plan: on abx also uti trending down Subjective Date/time seen: 10/29/22 15:19 Interval history: better, no more nausea, tolerating liquid diet and pain is almost gone Review of Systems Review of Systems: All systems reviewed & are unremarkable except as noted in HPI and below Exam Const: General: comfortable and no acute distress HENMT: Face/Nose/Sinus: Normal nares present Eyes: General: appearance normal, both eyes and all related structures Neck: Neck: no JVD Resp: Auscultation: clear to auscultation bilaterally Cardio: Rate: regular rate Rhythm: regular rhythm GI: Inspection: non-distended GI Palp: Yes Soft to palpation, No Tenderness to palpation present (GI) and No Guarding due to palpation present (GI) Auscultation: normal bowel sounds Skin: General skin exam: normal color Neuro: Speech: normal speech Motor exam (neuro): 5/5 motor strength present throughout Extrem: General: normal to inspection Psych: Mental Status: mental status grossly normal Objective Data Vital Signs Vital Signs: Vital Signs - 24 hr 10/28/22 23:27 10/28/22 22:00 10/29/22 01:48 Temperature 97.1 F L Pulse Rate 74 92 74 Respiratory Rate 18 Blood Pressure 155/73 H Pulse Oximetry 96 96 96 Oxygen Delivery CPAP CPAP 10/29/22 06:00 10/29/22 07:59 Temperature 96.8 F L Pulse Rate 83 Respiratory Rate 20 Blood Pressure 154/72 H Pulse Oximetry 98 94 Oxygen Delivery Room Air Intake/Output Intake/Output: Intake & Output 10/26/22 10/27/22 10/28/22 10/29/22 23:59 23:59 23:59 23:59 Intake Total 1520 1210 1050 Output Total 300 Balance 1220 1210 1050 Meds/Results Medications: Active Medications Generic Name Dose Route Start Last Admin Trade Name Freq PRN Reason Stop Dose Admin Acetaminophen 650 mg 10/28/22 18:15 10/29/22 09:08 Acetaminophen 325 Mg Tablet PO 650 mg Q6H PRN Administration Mild Pain (1-3) or Fever Dextrose 12.5 gm 10/27/22 00:03 Dextrose 50% 25 Gm/50 Ml Syringe IV PUSH PRN PRN Hypoglycemia Protocol Glucagon 1 mg 10/27/22 00:03 Glucagon For Inj 1 Mg Vial IM PRN PRN Hypoglycemia Protocol Glucose 15 gm 10/27/22 00:03 Glucose Oral Gel 15 Gm Of Glucse In 37.5 Gm Tube PO PRN PRN Hypoglycemia Protocol Hydralazine HCl 10 mg 10/26/22 23:49 Hydralazine Hcl 20 Mg/Ml Vial IV PUSH Q8H PRN Blood Pressure - High Dextrose 1,000 mls @ 100 mls/hr 10/27/22 00:03 Dextrose 5% 1,000 Ml IVPB PRN PRN Hypoglycemia Protocol Imipenem/Cilastatin Sodium 500 mg in 100 mls @ 300 mls/hr 10/28/22 12:00 10/29/22 12:15 Primaxin 500 Mg/Ns 100 Ml IVPB Infused Q8H PURVI Infusion Vancomycin HCl 1,250 mg in 250 mls @ 166.667 mls/hr 10/29/22 10:00 10/29/22 10:40 Vancomycin 1,250 Mg/D5w 250 Ml IVPB I
--- NOTE | 2022-10-29 15:30 | PC.NURSE ---
On 10/29/22, the student, Wayne Snyder, provided care and completed [facility] documentation on this patient. I have reviewed the student's documentation and agree with the findings.
[2022-10-29 16:54] LABS: Glucose Point of Care 222 mg/dl (65-105)
[2022-10-29] MEDS: INSULIN ASPART (*BKC) 100 UNITS/ML SUB-Q (17:40)
[2022-10-29 21:24] LABS: Glucose Point of Care 217 mg/dl (65-105)
[2022-10-29 22:00] VITALS: BP 134/68; PULSE 88; RESP 14; TEMP 36.6; O2SAT 99
--- NOTE | 2022-10-30 | ECHO_ITS ---
Patient Info Name: Giana Yao Age: 87 years : 1935 Gender: Female Ht: 60 in Wt: 158 lbs BSA: 1.77 m2 HR: 81 bpm BP: 136 / 60 mmHg Technical Quality: Fair Exam Date: 10/30/2022 10:06 AM Exam Location: [facility] Room: [facility] Patient Status: Inpatient Admit Date: 10/26/2022 Staff Ordering Physician: Arpita Avila PA-C Groundman: Angelica Calderon RCS Attending Provider: Jadiel Vargas MD Referring Physician: Austin GUEVARA; Exam Type: CA echo doppler color flow Study Info Indications - sepsis Complete two-dimensional, color flow and Doppler transthoracic echocardiogram is performed. Summary 1. Complete two-dimensional, color flow and Doppler transthoracic echocardiogram is performed. 2. Left ventricular chamber dimension is normal. 3. Left ventricular systolic function is normal, estimated at 65-70%. 4. The left ventricular diastolic function is grade I diastolic dysfunction. 5. E/e' 17 is elevated. 6. There is mild aortic valve sclerosis. 7. There is trace aortic valve regurgitation. 8. The mitral valve has moderately calcified annulus. 9. There is mild tricuspid valve regurgitation. 10. No pulmonary hypertension, estimated pulmonary arterial systolic pressure is 35 mmHg. Left Ventricle E/e' 17 is elevated. Left ventricular chamber dimension is normal. Left ventricular systolic function is normal, estimated at 65-70%. The left ventricular diastolic function is grade I diastolic dysfunction. Right Ventricle Right ventricular systolic function is normal and with normal TAPSE 2.3 cm. Right ventricular chamber dimension is normal. Left Atria Left atrial chamber dimension is normal. Right Atria Right atrial chamber dimension is normal. Aortic Valve The aortic valve is trileaflet. There is mild aortic valve sclerosis. There is no aortic valve stenosis. There is trace aortic valve regurgitation. No aortic valve vegetation visualized. Pulmonic Valve There is no pulmonic regurgitation. No pulmonic valve vegetation visualized. Mitral Valve The mitral valve has moderately calcified annulus. There is no mitral valve stenosis. There is no mitral valve regurgitation. No mitral valve vegetation visualized. Tricuspid Valve There is mild tricuspid valve regurgitation. No pulmonary hypertension, estimated pulmonary arterial systolic pressure is 35 mmHg. No tricuspid valve vegetation visualized. Pericardium/Pleural There is no pericardial effusion. Inferior Vena Cava Normal inferior vena cava with >50% collapse upon inspiration consistent with normal right atrial pressure, 5 mmHg. Aorta The aortic root size at the sinus of Valsalva is normal. Left Ventricular Outflow Tract Name Value Normal LVOT 2D LVOT Diameter 2.0 cm LVOT Doppler LVOT Peak Gradient 7 mmHg LVOT Mean Gradient 5 mmHg LVOT VTI 26 cm LVOT VTI/AV VTI Ratio 0.7 LVOT Stroke Volume 81 ml LVOT CO
[2022-10-30 05:43] LABS: Basophils Percent Auto 0.2 % (0.2-1.2); Eosinophils Absolute Auto 0.1 K/mm3 (0-0.3); Eosinophils Percent Auto 0.6 % (0-4.4); Hematocrit 34.6 % (37.0-47.0); Hemoglobin 11.6 g/dL (12.0-15.0); Immature Granulocyte Percent A 2.3 % (0-0.5); Lymphocytes Absolute Auto 1.36 K/mm3 (0.9-3.2); Lymphocytes Percent Auto 6.3 % (18.3-44.2); Mean Corpuscular HGB Conc 33.5 g/dl (32-36); Mean Corpuscular Hemoglobin 30.9 pg (26-34); Mean Platelet Volume 10.5 fl (7.4-10.4); Monocytes Absolute Auto 1.3 K/mm3 (0.1-0.6); Monocytes Percent Auto 5.8 % (2.6-8.5); Neutrophils Absolute Auto 18.4 K/mm3 (1.3-6.7); Neutrophils Percent Auto 84.8 % (45.5-73.1); Platelet Count Result 234 k/mm3 (150-375); Red Blood Count 3.76 M/mm3 (4.2-5.4); Red Cell Distribution Width 14.2 % (11.5-14.5); White Blood Count 21.7 K/mm3 (4.5-10.0)
[2022-10-30 05:59] LABS: Anisocytosis 1+ (NORMAL); Platelet Estimate Adequate (Adequate)
[2022-10-30 06:00] VITALS: BP 136/60; PULSE 78; RESP 14; TEMP 36.3; O2SAT 99
[2022-10-30 06:00] LABS: Large Platelets Present; Ovalocytes 1+ (NORMAL); Schistocytes None Seen (NORMAL)
[2022-10-30 06:05] LABS: Alanine Aminotransferase 45 U/L (6-35); Albumin Level 2.9 g/dL (3.5-5.1); Alkaline Phosphatase 114 U/L (38-126); Anion Gap 4 mmol/L (8-16); Aspartate Amino Transferase 66 U/L (14-36); Bilirubin,Total 1.2 mg/dL (0.2-1.3); Blood Urea Nitrogen 14 mg/dL (7-17); Calcium 8.1 mg/dL (8.4-10.2); Carbon Dioxide 29 mmol/L (22-30); Chloride 101 mmol/L (98-107); Estimated CRCL calculation 40 ml/min; Estimated Glomerular Filt Rate > 60; Glucose 183 mg/dL (65-110); Magnesium 1.9 mg/dL (1.6-2.3); Potassium 3.4 mmol/L (3.4-5.0); Sodium 134 mmol/L (137-145)
[2022-10-30 06:15] LABS: CRP 24.8 mg/dL (<1.0)
[2022-10-30 07:39] LABS: Glucose Point of Care 194 mg/dl (65-105)
--- NOTE | 2022-10-30 08:37 | P.PNIM_ITS ---
Progress Note: A&P Assessment and Plan (1) Acute pancreatitis: Qualifiers: Acute pancreatitis complication: unspecified Pancreatitis type: unspecified pancreatitis type Qualified Code(s): K85.90 - Acute pancreatitis without necrosis or infection, unspecified Code(s): K85.90 - Acute pancreatitis without necrosis or infection, unspecified Status: Acute Assessment and Plan: CT showed noncomplicated acute interstitial pancreatitis, low-density within the pancreatic head likely represents parenchymal edema, noting that early necrosis or a pancreatic mass lesion cannot be excluded. Hx of cholecystectomy. * Lipase elevated on admission and trended to normal range. Abd pain improved. * triglycerides at 156 * GI has been consulted for elevated LFTs. * Ultrasound with dilated common bile duct. * MRCP showed acute interstitial pancreatitis, diffuse hepatic steatosis, small volume ascites and no choledocholithiasis. * She reports hydrochlorothiazide was started a few months ago and may have contributed. * No alcohol use. * WBC increased to >30 this admission, given CT scan results empiric IV vancomycin and Primaxin were initiated for concern of early necrosis. * Leukocytosis improving. Tolerating diet and abd pain improving. Unclear if leukocytosis is related to pancreatitis versus UTI or combination of both. Transitioned to Augmentin 875/125 mg PO BID x 7 days on 10/30/22 to complete 7- 10 day abx course. * Continue low-fat diet. (2) Urinary tract infection: Code(s): N39.0 - Urinary tract infection, site not specified Status: Acute Assessment and Plan: UA with +1 leukocyte Estrace and 11-20 white blood cells. Reports urinary frequency and urgency. * Antibiotics initiated 10/28/22 as above * culture positive for Enterococcus sensitive to ampicillin, macrobid, and vancomycin. * Urinary symptoms improving. * Transitioned to Augmentin as above. * WBC trending down. (3) Elevated liver enzymes: Code(s): R74.8 - Abnormal levels of other serum enzymes Status: Acute Assessment and Plan: * Hepatitis panel negative. * Ultrasound of the abdomen revealing diffuse hepatic steatosis * GI consulted and recommendations appreciated. * history of cholecystectomy. * Low fat diet (4) Diabetes: Qualifiers: Diabetes mellitus type: type 2 Diabetes mellitus pump servicer helper insulin use: without assisted use Diabetes mellitus complication status: without complication Qualified Code(s): E11.9 - Type 2 diabetes mellitus without complications Code(s): E11.9 - Type 2 diabetes mellitus without complications Status: Chronic Assessment and Plan: Hold metformin while inpatient. A1c 7%. Consider increasing metformin for goal <7% Accu-Cheks AC/HS with sliding scale insulin and hypoglycemic protocol. LDL <30 and HDL 55. Patient is not currently on a statin medication. (5) Mitral valve prolapse: Code(s): I34.1 - Nonrheumatic mitral (valve) prolapse Status: Chronic Assessment and Plan: H/O MVP Echocardiogram mild mitral valve calcified annulus noted without MVP noted. (6) VARGAS on CPAP: Code(s): G47.33 - Obstructive sleep apnea (adult) (pediatric); Z99.89 - Dependence on other enabling machines and devices Status: Chronic Assessment and Plan: Continue home CPAP (7) HTN (hypertension): Code(s): I10 - Essential (primary) hypertension Status: Chronic Assessment and Plan: BP 134/60. Resume amlodipine and losartan at home doses. Continue P.r
--- NOTE | 2022-10-30 08:37 | PM.IMPN ---
Progress Note: A&P Assessment and Plan (1) Acute pancreatitis: Qualifiers: Acute pancreatitis complication: unspecified Pancreatitis type: unspecified pancreatitis type Qualified Code(s): K85.90 - Acute pancreatitis without necrosis or infection, unspecified Code(s): K85.90 - Acute pancreatitis without necrosis or infection, unspecified Status: Acute Assessment and Plan: CT showed noncomplicated acute interstitial pancreatitis, low-density within the pancreatic head likely represents parenchymal edema, noting that early necrosis or a pancreatic mass lesion cannot be excluded. Hx of cholecystectomy. Lipase elevated on admission and trended to normal range. Abd pain improved. triglycerides at 156 GI has been consulted for elevated LFTs. Ultrasound with dilated common bile duct. MRCP showed acute interstitial pancreatitis, diffuse hepatic steatosis, small volume ascites and no choledocholithiasis. She reports hydrochlorothiazide was started a few months ago and may have contributed. No alcohol use. WBC increased to >30 this admission, given CT scan results empiric IV vancomycin and Primaxin were initiated for concern of early necrosis. Leukocytosis improving. Tolerating diet and abd pain improving. Unclear if leukocytosis is related to pancreatitis versus UTI or combination of both. Transitioned to Augmentin 875/125 mg PO BID x 7 days on 10/30/22 to complete 7-10 day abx course. Continue low-fat diet. (2) Urinary tract infection: Code(s): N39.0 - Urinary tract infection, site not specified Status: Acute Assessment and Plan: UA with +1 leukocyte Estrace and 11-20 white blood cells. Reports urinary frequency and urgency. Antibiotics initiated 10/28/22 as above culture positive for Enterococcus sensitive to ampicillin, macrobid, and vancomycin. Urinary symptoms improving. Transitioned to Augmentin as above. WBC trending down. (3) Elevated liver enzymes: Code(s): R74.8 - Abnormal levels of other serum enzymes Status: Acute Assessment and Plan: Hepatitis panel negative. Ultrasound of the abdomen revealing diffuse hepatic steatosis GI consulted and recommendations appreciated. history of cholecystectomy. Low fat diet (4) Diabetes: Qualifiers: Diabetes mellitus type: type 2 Diabetes mellitus terminal make up operator insulin use: without care home use Diabetes mellitus complication status: without complication Qualified Code(s): E11.9 - Type 2 diabetes mellitus without complications Code(s): E11.9 - Type 2 diabetes mellitus without complications Status: Chronic Assessment and Plan: Hold metformin while inpatient. A1c 7%. Consider increasing metformin for goal <7% Accu-Cheks AC/HS with sliding scale insulin and hypoglycemic protocol. LDL <30 and HDL 55. Patient is not currently on a statin medication. (5) Mitral valve prolapse: Code(s): I34.1 - Nonrheumatic mitral (valve) prolapse Status: Chronic Assessment and Plan: H/O MVP Echocardiogram mild mitral valve calcified annulus noted without MVP noted. (6) VARGAS on CPAP: Code(s): G47.33 - Obstructive sleep apnea (adult) (pediatric); Z99.89 - Dependence on other enabling machines and devices Status: Chronic Assessment and Plan: Continue home CPAP (7) HTN (hypertension): Code(s): I10 - Essential (primary) hypertension Status: Chronic Assessment and Plan: BP 134/60. Resume amlodipine and losartan at home doses. Continue P.r.n. hydralazine Plan CODE STATUS: FULL CODE Disposition: from home. Antibiotic: day 3 Time Spent With Patient Time: 30 minutes time spent with patient assessment, patient education, review of labs, vitals and nursing documentation. All questions answered to the best of my ability. Subjective Date/time seen: 10/30/22 08:37 She reports feeling tired today. She slept okay las
[2022-10-30 11:46] VITALS: BMI 30.9
[2022-10-30 11:47] LABS: Glucose Point of Care 251 mg/dl (65-105)
[2022-10-30] MEDS: INSULIN ASPART (*BKC) 100 UNITS/ML SUB-Q (12:32)
--- NOTE | 2022-10-30 13:05 | WPDGIPROGNO ---
Progress Note: A&P Assessment and Plan (1) Acute pancreatitis: Qualifiers: Acute pancreatitis complication: unspecified Pancreatitis type: unspecified pancreatitis type Qualified Code(s): K85.90 - Acute pancreatitis without necrosis or infection, unspecified Code(s): K85.90 - Acute pancreatitis without necrosis or infection, unspecified Status: Acute Assessment and Plan: Pancreatitis appears to be idiopathic. Patient has a history of cholecystectomy. No history of alcohol use. Clinically improving. Plan to advance to a low-fat diet. Discharge as white count improves. Antibiotics are probably not necessary as leukocytosis likely related to her pancreatitis. No evidence of necrosis or infection. (2) Elevated liver enzymes: Code(s): R74.8 - Abnormal levels of other serum enzymes Status: Acute Assessment and Plan: LFT stable. Likely related to her acute pancreatitis. Subjective Date/time seen: 10/30/22 13:05 Interval history: Patient is seen today in the absence of Dr. Singh. Appears to have idiopathic pancreatitis. Patient has a prior history of cholecystectomy. MRCP reveals no common gallstones. No evidence for necrotic pancreatitis. Patient tolerating regular diet since yesterday with no pain, no nausea or vomiting. She is afebrile. Review of Systems Review of Systems: Review of systems noncontributory. Exam Narrative: Physical exam reveals patient to be alert. Comfortable at rest. HEENT exam reveals no icterus. Patient afebrile. Lungs are clear. Heart without murmur. Abdomen bowel sounds present soft nontender with no organomegaly. No localized tenderness. She is modestly obese. Objective Data Vital Signs Vital Signs: Vital Signs - 24 hr 10/29/22 14:00 10/29/22 22:00 10/30/22 06:00 Temperature 97.4 F L 97.9 F 97.4 F L Pulse Rate 82 88 78 Respiratory Rate 18 14 14 Blood Pressure 145/70 H 134/68 136/60 Pulse Oximetry 98 99 99 Intake/Output Intake/Output: Intake & Output 10/27/22 10/28/22 10/29/22 10/30/22 23:59 23:59 23:59 23:59 Intake Total 1520 1210 1700 880 Output Total 300 75 Balance 1220 1210 1700 805 Meds/Results Medications: Active Medications Generic Name Dose Route Start Last Admin Trade Name Freq PRN Reason Stop Dose Admin Acetaminophen 650 mg 10/28/22 18:15 10/29/22 09:08 Acetaminophen 325 Mg Tablet PO 650 mg Q6H PRN Administration Mild Pain (1-3) or Fever Dextrose 12.5 gm 10/27/22 00:03 Dextrose 50% 25 Gm/50 Ml Syringe IV PUSH PRN PRN Hypoglycemia Protocol Glucagon 1 mg 10/27/22 00:03 Glucagon For Inj 1 Mg Vial IM PRN PRN Hypoglycemia Protocol Glucose 15 gm 10/27/22 00:03 Glucose Oral Gel 15 Gm Of Glucse In 37.5 Gm Tube PO PRN PRN Hypoglycemia Protocol Hydralazine HCl 10 mg 10/26/22 23:49 Hydralazine Hcl 20 Mg/Ml Vial IV PUSH Q8H PRN Blood Pressure - High Dextrose 1,000 mls @ 100 mls/hr 10/27/22 00:03 Dextrose 5% 1,000 Ml IVPB PRN PRN Hypoglycemia Protocol Imipenem/Cilastatin Sodium 500 mg in 100 mls @ 300 mls/hr 10/28/22 12:00 10/30/22 12:31 Primaxin 500 Mg/Ns 100 Ml IVPB 300 mls/hr Q8H PURVI Administration Vancomycin HCl 1,250 mg in 250 mls @ 166.667 mls/hr 10/29/22 10:00 10/30/22 10:59 Vancomycin 1,250 Mg/D5w 250 Ml IVPB 166.6 mls/hr Q24H PURVI Administration Insulin Aspart 2 - 5 units 10/29/22 17:05 10/30/22 12:32 Insulin Aspart (*Bkc) 100 Units/Ml SUB-Q 3 units TIDWM PURVI Administration Protocol Lorazepam 0.5 mg 10/26/22 23:48 Lorazepam Inj (*Crx) 2 Mg/Ml Vial IV PUSH Q6H PRN Anxiety Morphine Sulfate 4 mg 10/26/22 17:34 10/27/22 08:58 Morphine Sulfate (*Crx) 4 Mg/Ml Inj IV PUSH 4 mg Q2H PRN Administration Pain Rated 7-10 Ondansetron HCl 4 mg 10/26/22 17:34 10/27/22 00:42 Ondansetron Inj 4 Mg/2 Ml
[2022-10-30 14:00] VITALS: BP 134/60; PULSE 75; RESP 14; TEMP 36.2; O2SAT 100
[2022-10-30 16:27] LABS: Glucose Point of Care 194 mg/dl (65-105)
[2022-10-30 19:46] LABS: Glucose Point of Care 269 mg/dl (65-105)
[2022-10-30] MEDS: AMOXICILLIN/CLAVULANATE K 875-125 MG TAB 1 TABLET PO (20:39)
[2022-10-30] MEDS: amLODIPine BESYLATE 5 MG TABLET 10 MG PO (20:39)
[2022-10-30] MEDS: LOSARTAN POTASSIUM 50 MG TABLET PO (20:39)
[2022-10-30 21:21] VITALS: PULSE 87; O2SAT 97
[2022-10-30 21:22] VITALS: O2SAT 97
[2022-10-30 21:49] VITALS: BP 131/71; PULSE 87; RESP 14; TEMP 37; O2SAT 97
[2022-10-31 03:03] VITALS: PULSE 73; O2SAT 97
[2022-10-31 05:38] VITALS: BP 119/60; PULSE 80; RESP 14; TEMP 37.2; O2SAT 98
[2022-10-31 06:00] LABS: Basophils Absolute Auto 0.1 K/mm3 (0.0-0.1); Basophils Percent Auto 0.4 % (0.2-1.2); Eosinophils Absolute Auto 0.2 K/mm3 (0-0.3); Eosinophils Percent Auto 1.4 % (0-4.4); Hemoglobin 11.9 g/dL (12.0-15.0); Immature Granulocyte Absolute 0.19 K/mm3 (0.00-0.031); Immature Granulocyte Percent A 1.3 % (0-0.5); Lymphocytes Absolute Auto 1.17 K/mm3 (0.9-3.2); Lymphocytes Percent Auto 7.9 % (18.3-44.2); Mean Corpuscular Hemoglobin 31.6 pg (26-34); Mean Corpuscular Volume 92.8 fl (80-100); Mean Platelet Volume 10.5 fl (7.4-10.4); Monocytes Absolute Auto 1.2 K/mm3 (0.1-0.6); Monocytes Percent Auto 8.1 % (2.6-8.5); Neutrophils Absolute Auto 11.9 K/mm3 (1.3-6.7); Neutrophils Percent Auto 80.9 % (45.5-73.1); Platelet Count Result 260 k/mm3 (150-375); Red Blood Count 3.77 M/mm3 (4.2-5.4); Red Cell Distribution Width 14.3 % (11.5-14.5); White Blood Count 14.8 K/mm3 (4.5-10.0)
[2022-10-31 06:06] LABS: Alanine Aminotransferase 37 U/L (6-35); Albumin Level 2.9 g/dL (3.5-5.1); Alkaline Phosphatase 110 U/L (38-126); Anion Gap 5 mmol/L (8-16); Aspartate Amino Transferase 36 U/L (14-36); Blood Urea Nitrogen 16 mg/dL (7-17); Calcium 8.2 mg/dL (8.4-10.2); Carbon Dioxide 29 mmol/L (22-30); Chloride 99 mmol/L (98-107); Estimated CRCL calculation 40 ml/min; Estimated Glomerular Filt Rate > 60; Glucose 216 mg/dL (65-110); Potassium 3.1 mmol/L (3.4-5.0); Sodium 133 mmol/L (137-145)
[2022-10-31 06:40] LABS: CRP 19.9 mg/dL (<1.0)
[2022-10-31 08:12] LABS: Glucose Point of Care 218 mg/dl (65-105)
[2022-10-31] MEDS: metFORMIN HCL 500 MG TABLET PO (09:20)
[2022-10-31] MEDS: INSULIN ASPART (*BKC) 100 UNITS/ML SUB-Q (09:20)
[2022-10-31] MEDS: AMOXICILLIN/CLAVULANATE K 875-125 MG TAB 1 TABLET PO (09:21)
[2022-10-31] MEDS: POTASSIUM CHLORIDE 20 MEQ TABLET 40 MEQ PO (09:21)
--- NOTE | 2022-10-31 10:33 | P.DS_ITS ---
DS: Admitting Diagnosis Discharge Date 10/31/2022 Admitting Diagnosis Acute pancreatitis Transaminitis Type 2 diabetes mellitus with peripheral neuropathy H/O mitral valve prolapse VARGAS Essential hypertension DS: Discharge Diagnosis Discharge Diagnosis (1) Acute pancreatitis: Qualifiers: Acute pancreatitis complication: unspecified Pancreatitis type: unspecified pancreatitis type Qualified Code(s): K85.90 - Acute pancreatitis without necrosis or infection, unspecified Code(s): K85.90 - Acute pancreatitis without necrosis or infection, unspecified Status: Acute Assessment and Plan: CT showed noncomplicated acute interstitial pancreatitis, low-density within the pancreatic head likely represents parenchymal edema, noting that early necrosis or a pancreatic mass lesion cannot be excluded. Hx of cholecystectomy. * Lipase elevated on admission and trended to normal range. Abd pain improved. * triglycerides at 156 * GI has been consulted for elevated LFTs. * Ultrasound with dilated common bile duct. * MRCP showed acute interstitial pancreatitis, diffuse hepatic steatosis, small volume ascites and no choledocholithiasis. * She reports hydrochlorothiazide was started a few months ago and may have contributed. * No alcohol use. * WBC increased to >30 this admission, given CT scan results empiric IV vancomycin and Primaxin were initiated for concern of early necrosis. * Leukocytosis improving and likely secondary to UTI. Tolerating diet and abd pain improving. * Transitioned to Augmentin 875/125 mg PO BID x 7 days on 10/30/22 to complete 7- 10 day abx course. * Continue low-fat diet. (2) Urinary tract infection: Code(s): N39.0 - Urinary tract infection, site not specified Status: Resolved Assessment and Plan: UA with +1 leukocyte Estrace and 11-20 white blood cells. Reports urinary frequency and urgency. * Antibiotics initiated 10/28/22 as above * culture positive for Enterococcus sensitive to ampicillin, macrobid, and vancomycin. * Urinary symptoms improving. * Transitioned to Augmentin as above. * WBC trending down. (3) Elevated liver enzymes: Code(s): R74.8 - Abnormal levels of other serum enzymes Status: Acute Assessment and Plan: * Hepatitis panel negative. * Ultrasound of the abdomen revealing diffuse hepatic steatosis * GI consulted and recommendations appreciated. * history of cholecystectomy. * Low fat diet (4) Diabetes: Qualifiers: Diabetes mellitus complication status: without complication Diabetes mellitus terminal makeup operator insulin use: without terminal makeup operator use Diabetes mellitus type: type 2 Qualified Code(s): E11.9 - Type 2 diabetes mellitus without complications Code(s): E11.9 - Type 2 diabetes mellitus without complications Status: Chronic Assessment and Plan: Held metformin while inpatient. * A1c 7%. Consider increasing metformin for goal <7% * Accu-Cheks AC/HS with sliding scale insulin and hypoglycemic protocol. * LDL <30 and HDL 55. Patient is not currently on a statin medication. * glucose >200 this admission. Increased metformin 500 mg BID and discussed with patient. (5) Mitral valve prolapse: Code(s): I34.1 - Nonrheumatic mitral (valve) prolapse Status: Chronic Assessment and Plan: H/O MVP. Echocardiogram mild mitral valve calcified annulus noted without MVP noted. (6) VARGAS on CPAP: Code(s): G47.33 - Obstructive sleep apnea (adult) (pediatric); Z99.89 - Dependence on other enabling machine
--- NOTE | 2022-10-31 10:33 | PM.DS ---
DS: Admitting Diagnosis Discharge Date 10/31/2022 Admitting Diagnosis Acute pancreatitis Transaminitis Type 2 diabetes mellitus with peripheral neuropathy H/O mitral valve prolapse VARGAS Essential hypertension DS: Discharge Diagnosis Discharge Diagnosis (1) Acute pancreatitis: Qualifiers: Acute pancreatitis complication: unspecified Pancreatitis type: unspecified pancreatitis type Qualified Code(s): K85.90 - Acute pancreatitis without necrosis or infection, unspecified Code(s): K85.90 - Acute pancreatitis without necrosis or infection, unspecified Status: Acute Assessment and Plan: CT showed noncomplicated acute interstitial pancreatitis, low-density within the pancreatic head likely represents parenchymal edema, noting that early necrosis or a pancreatic mass lesion cannot be excluded. Hx of cholecystectomy. Lipase elevated on admission and trended to normal range. Abd pain improved. triglycerides at 156 GI has been consulted for elevated LFTs. Ultrasound with dilated common bile duct. MRCP showed acute interstitial pancreatitis, diffuse hepatic steatosis, small volume ascites and no choledocholithiasis. She reports hydrochlorothiazide was started a few months ago and may have contributed. No alcohol use. WBC increased to >30 this admission, given CT scan results empiric IV vancomycin and Primaxin were initiated for concern of early necrosis. Leukocytosis improving and likely secondary to UTI. Tolerating diet and abd pain improving. Transitioned to Augmentin 875/125 mg PO BID x 7 days on 10/30/22 to complete 7-10 day abx course. Continue low-fat diet. (2) Urinary tract infection: Code(s): N39.0 - Urinary tract infection, site not specified Status: Resolved Assessment and Plan: UA with +1 leukocyte Estrace and 11-20 white blood cells. Reports urinary frequency and urgency. Antibiotics initiated 10/28/22 as above culture positive for Enterococcus sensitive to ampicillin, macrobid, and vancomycin. Urinary symptoms improving. Transitioned to Augmentin as above. WBC trending down. (3) Elevated liver enzymes: Code(s): R74.8 - Abnormal levels of other serum enzymes Status: Acute Assessment and Plan: Hepatitis panel negative. Ultrasound of the abdomen revealing diffuse hepatic steatosis GI consulted and recommendations appreciated. history of cholecystectomy. Low fat diet (4) Diabetes: Qualifiers: Diabetes mellitus complication status: without complication Diabetes mellitus intermission coordinator insulin use: without jail use Diabetes mellitus type: type 2 Qualified Code(s): E11.9 - Type 2 diabetes mellitus without complications Code(s): E11.9 - Type 2 diabetes mellitus without complications Status: Chronic Assessment and Plan: Held metformin while inpatient. A1c 7%. Consider increasing metformin for goal <7% Accu-Cheks AC/HS with sliding scale insulin and hypoglycemic protocol. LDL <30 and HDL 55. Patient is not currently on a statin medication. glucose >200 this admission. Increased metformin 500 mg BID and discussed with patient. (5) Mitral valve prolapse: Code(s): I34.1 - Nonrheumatic mitral (valve) prolapse Status: Chronic Assessment and Plan: H/O MVP. Echocardiogram mild mitral valve calcified annulus noted without MVP noted. (6) VARGAS on CPAP: Code(s): G47.33 - Obstructive sleep apnea (adult) (pediatric); Z99.89 - Dependence on other enabling machines and devices Status: Chronic Assessment and Plan: Continue home CPAP (7) HTN (hypertension): Code(s): I10 - Essential (primary) hypertension Status: Chronic Assessment and Plan: BP 131/71 to 119/60. Continued on amlodipine and losartan at home doses. HCTZ held due to pancreatitis and given current blood pressures, held on discharge. patient instructed to check blood pressure at
== END 2022-10-31 11:30 | disposition home or self-care (01) | DRG 439 ==
LOC: ANHED 16:23 → ANH3MEDSUR 18:05
PROVIDERS: Emergency Medicine; Internal Medicine Critical Care Medicine; Nurse Practitioner; Admitting Provider Family Medicine; Emergency Provider Physician Assistant; PCP Internal Medicine Cardiovascular Disease; Visit Provider Nurse Practitioner Family
DX: K85.90 Acute pancreatitis without necrosis or infection, unspecified (principal); N39.0 Urinary tract infection, site not specified; B95.2 Enterococcus as the cause of diseases classified elsewhere; D72.829 Elevated white blood cell count, unspecified; E11.42 Type 2 diabetes mellitus with diabetic polyneuropathy; E66.9 Obesity, unspecified; F41.9 Anxiety disorder, unspecified; F32.A Depression, unspecified; I34.1 Nonrheumatic mitral (valve) prolapse; I10 Essential (primary) hypertension; M19.90 Unspecified osteoarthritis, unspecified site; K21.9 Gastro-esophageal reflux disease without esophagitis; G47.33 Obstructive sleep apnea (adult) (pediatric); K76.0 Fatty (change of) liver, not elsewhere classified; K57.90 Diverticulosis of intestine, part unspecified, without perforation or abscess without bleeding; R74.8 Abnormal levels of other serum enzymes; Z90.49 Acquired absence of other specified parts of digestive tract; Z90.710 Acquired absence of both cervix and uterus; Z96.652 Presence of left artificial knee joint; Z96.0 Presence of urogenital implants; Z79.84 Long term (current) use of oral hypoglycemic drugs; Z99.89 Dependence on other enabling machines and devices; Z68.31 Body mass index [BMI] 31.0-31.9, adult
CPT/HCPCS: 36415; 71046; 74177; 74183; 76376; 76705; 80053; 80061; 80074; 81001; 82948; 83036; 83605; 83615; 83690; 83735; 84443; 84484; 85025; 85610; 85730; 86140; 87040; 87081; 87086; 87147; 87181; 87186; 93005; 93306; 96374; 96375; 96376; 99285; A9270; A9577; J0696; J0743; J1815; J2270; J2405; J3370; J3480; J7030; J7040; Q9967

== ENCOUNTER 2022-11-03 11:19 | Emergency (ER) | payer MEDICARE, SELFPAY ==
--- NOTE | ~2022-11-03 | XR_ITS ---
XR hand RT min 3V, XR hand LT min 3V 11/03/2022 15:14 Indication: Severe bilateral hand pain. Procedure: 3 views of each hand Comparison: 04/11/2011 Findings: There has been significant progression of polyarticular osteoarthritis bilaterally, severe on the right and mild-moderate on the left. Osteopenia. Degenerative changes most advanced on the rig ht in the triscaphe, first carpal metacarpal, second DIP joint, and first there are subtle chondrocal cinosis. No acute fracture is identified. Metacarpal phalangeal joints. Degenerative changes most sev ere on the left at the triscaphe and first carpal metacarpal joints. Impression: 1: No acute fracture. 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 Reviewed, dictated and finalized at location B. Impression: 1: No acute fracture. 2: Interval progression of polyarticular osteoarthritis of both hands and wris ts, right greater than left. Impression: 1: No acute fracture. 2: Interval progression of polyarticular osteoarthritis of both hands and wris ts, right greater than left.
[2022-11-03 11:31] VITALS: BP 141/50; PULSE 82; RESP 16; TEMP 36.2; O2SAT 100
--- NOTE | 2022-11-03 14:56 | ED.UPPEXIN ---
HPI - Extremity Injury (Upper) General Chief Complaint: Extremity Injury, Upper Stated Complaint: Arm pain Time Seen by Provider: 11/03/22 14:46 History of Present Illness HPI narrative: Patient is an 87-year-old female recently hospitalized here for pancreatitis and UTI here due to bilateral hand and wrist pain over the past day. Patient states that she woke up with the pain, having lots of pain with ROM but not at rest. Denies weakness in the hands. She has never had wrist pain like this in the past. She also states that since discharge from the hospital she is also not been eating or drinking her normal amount, has been compliant with her antibiotics but has had diarrhea. Her abdominal pain and urinary symptoms have improved. No chest pain, shortness of breath, fevers or chills, nausea or vomiting. Related Data Home Medications Medication Instructions Recorded Confirmed amlodipine 10 mg tablet 10 mg PO HS 06/21/19 10/26/22 trazodone 100 mg tablet 100 mg PO HS 06/21/19 10/26/22 venlafaxine 75 mg capsule,extended 35 mg PO DAILY 06/21/19 10/26/22 release 24 hr hydrochlorothiazide 25 mg tablet 25 mg PO HS 10/01/21 10/26/22 losartan 50 mg tablet 50 mg PO HS 10/01/21 10/26/22 naproxen sodium 220 mg capsule 440 mg PO HS 10/26/22 10/26/22 (Aleve) Allergies Allergy/AdvReac Type Severity Reaction Status Date / Time lisinopril Allergy Itching Verified 11/03/22 11:36 Review of Systems Review of Systems: Gen: Reports generalized weakness. Eyes: Denies eye pain or visual change ENT: Denies congestion Respiratory: Denies shortness of breath or cough CV: Denies chest pain or palpitations GI: Denies abdominal pain nausea, emesis or diarrhea : denies burning, urgency, frequency or hematuria Musculoskeletal: Reports bilateral hand pain. Neuro: Denies numbness, tingling, weakness or focal weakness Skin: Denies rash Except as documented, all other systems reviewed and negative PMFSH Past Medical History Medical History Acute pancreatitis Anxiety Arthritis Cataracts, bilateral Colonic diverticular abscess Depression Diabetes GERD (gastroesophageal reflux disease) Hepatic steatosis History of kidney stones HTN (hypertension) Kidney stones Leukocytosis Mitral valve prolapse Nausea and vomiting in adult Obesity VARGAS on CPAP Osteoarthritis of right knee Peripheral neuropathy Right distal ureteral calculus Upper abdominal pain Surgical History Surgical History H/O lithotripsy History of bladder surgery History of hysterectomy History of total left knee replacement History of ureter stent Hx of cardiac catheterization Hx of cataract surgery Hx of cholecystectomy Family History Family History Sibling Diabetes mellitus Carcinoma of colon Mother , age 82 Heart disease Hypertension Cerebrovascular accident Father Diabetes mellitus Hypertension Family history of cardiovascular disease Social History Social History (Updated 10/26/22 @ 23:51 by Charo Luna NP) Social History: she has 4 children. she is and lives with her . 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 Her is a durable power compliance attorney for healthcare. Code status full code Smoking status: Never smoker Alcohol intake: never Substance use: never Lack of Transportation: No Lack of Food: Never True Current Housing: I Have Housing Concerned About Future Housing: No Difficulty Paying Gas/Electric Bills: No Difficulty Paying for Meds: No Currently Unemployed: No Education: High School Diploma/GED Difficulty w/ Childcare or Family Care: No Living arrangements: with family Occupation/Education: retired Gender identity (if verbalized by the patient): Female Spiritual care c
[2022-11-03] MEDS: HYDROcodone/acetaminophen (*CRX) 5-325 MG TABLET 1 TAB PO (15:24)
[2022-11-03 15:27] LABS: Basophils Absolute Auto 0.1 K/mm3 (0.0-0.1); Basophils Percent Auto 0.4 % (0.2-1.2); Eosinophils Absolute Auto 0.1 K/mm3 (0-0.3); Eosinophils Percent Auto 0.9 % (0-4.4); Hematocrit 33.8 % (37.0-47.0); Hemoglobin 11.2 g/dL (12.0-15.0); Immature Granulocyte Percent A 1.6 % (0-0.5); Lymphocytes Absolute Auto 0.89 K/mm3 (0.9-3.2); Mean Corpuscular HGB Conc 33.1 g/dl (32-36); Mean Corpuscular Hemoglobin 31.1 pg (26-34); Mean Corpuscular Volume 93.9 fl (80-100); Mean Platelet Volume 9.9 fl (7.4-10.4); Monocytes Absolute Auto 0.9 K/mm3 (0.1-0.6); Monocytes Percent Auto 6.7 % (2.6-8.5); Neutrophils Absolute Auto 10.7 K/mm3 (1.3-6.7); Neutrophils Percent Auto 83.4 % (45.5-73.1); Platelet Count Result 335 k/mm3 (150-375); Red Cell Distribution Width 13.8 % (11.5-14.5); White Blood Count 12.8 K/mm3 (4.5-10.0)
[2022-11-03 15:38] LABS: Alanine Aminotransferase 26 U/L (6-35); Albumin Level 3.1 g/dL (3.5-5.1); Alkaline Phosphatase 82 U/L (38-126); Anion Gap 8 mmol/L (8-16); Aspartate Amino Transferase 33 U/L (14-36); Blood Urea Nitrogen 12 mg/dL (7-17); Calcium 8.9 mg/dL (8.4-10.2); Carbon Dioxide 21 mmol/L (22-30); Chloride 103 mmol/L (98-107); Estimated CRCL calculation 45 ml/min; Estimated Glomerular Filt Rate > 60; Glucose 200 mg/dL (65-110); Magnesium 1.5 mg/dL (1.6-2.3); Potassium 4.2 mmol/L (3.4-5.0); Sodium 132 mmol/L (137-145)
[2022-11-03 17:23] LABS: CRP 8.5 mg/dL (<1.0); Uric Acid 3.6 mg/dL (2.5-7.5)
[2022-11-03] MEDS: predniSONE 20 MG TABLET 40 MG PO (18:11)
[2022-11-03] MEDS: MAGNESIUM SULF 1 GM/D5W 100 ML 1 GM/100 ML BAG IVPB (18:12)
[2022-11-03 19:26] VITALS: BP 134/53; PULSE 83; RESP 23; TEMP 36.4; O2SAT 95
== END 2022-11-03 19:40 | disposition home or self-care (01) ==
PROVIDERS: Emergency Provider Physician Assistant
DX: M19.031 Primary osteoarthritis, right wrist (principal); M19.032 Primary osteoarthritis, left wrist; F41.9 Anxiety disorder, unspecified; M19.90 Unspecified osteoarthritis, unspecified site; F32.A Depression, unspecified; K21.9 Gastro-esophageal reflux disease without esophagitis; E11.9 Type 2 diabetes mellitus without complications; I10 Essential (primary) hypertension; Z87.442 Personal history of urinary calculi
CPT/HCPCS: 36415; 73130; 80053; 83735; 84550; 85025; 86140; 96365; 99284; A9270; J3475; J7512

== ENCOUNTER 2023-03-26 11:12 | Emergency (ER) | payer MEDICARE, SELFPAY ==
--- NOTE | ~2023-03-26 | CT_ITS ---
CT head without contrast Indication: Status post fall COMPARISON: 06/01/2014 Technique: Serial scans were obtained through the brain without the administration of contrast. Dose reduction technique was used on this scan by utilizing automated exposure control and iterative recon struction technique. The dose-length product (DLP) was 605.33 mGy-cm. Findings: There is no evidence of intracranial hemorrhage, mass lesion, or acute infarct. The ventri cles and subarachnoid spaces are dilated, consistent with mild to moderate atrophy. Low attenuation regions are seen within the periventricular white matter bilaterally, likely representing changes fro m chronic microvascular ischemic disease. There is no evidence of edema, mass effect or midline shif t. The visualized paranasal sinuses and mastoid air cells are clear. Impression: No intracranial hemorrhage, mass, or acute infarct. Atrophy and chronic white matter changes, as above. Reviewed, dictated and finalized at location M. Impression: No intracranial hemorrhage, mass, or acute infarct. Atrophy and chronic white matter changes, as above.
--- NOTE | ~2023-03-26 | CT_ITS ---
Noncontrast CT scan of the cervical spine Technique: Multiple contiguous axial [address] images of the cervical spine were obtained and rec onstructed in 2D sagittal and coronal planes on the acquisition scanner. Dose reduction technique was used on this scan by utilizing automated exposure control, adjustment of the mA and/or kV according to patient size. The dose-length product (DLP) was 202.44 mGy-cm. Clinical History: Pain Findings: No fractures or dislocations. There is advanced degenerative disc narrowing at C4-C5, C5-C 6, and C6-C7. There is moderate degenerative disc narrowing at C3-C4. There is bilateral neural petra inal narrowing at C4-C5. There is bilateral neural foraminal narrowing at C5-C6. There are facet join t degenerative changes throughout the cervical spine. No prevertebral soft tissue swelling. Impression: No fracture or subluxation of the cervical spine. Degenerative spondylosis, as above. Reviewed, dictated and finalized at [facility]. Impression: No fracture or subluxation of the cervical spine. Degenerative spondylosis, as above.
[2023-03-26 11:19] VITALS: BP 131/56; PULSE 66; RESP 22; TEMP 36.5; O2SAT 100
--- NOTE | 2023-03-26 13:11 | ED.FALL ---
HPI - Fall General Chief Complaint: Fall Stated Complaint: FALL/ STRUCK HEAD Time Seen by Provider: 03/26/23 12:01 History of Present Illness HPI Narrative: Patient is an 87-year-old female presenting after a fall. Patient states that she tripped on a rug in her kitchen and fell back striking the back of her head. She briefly lost consciousness. She struggled to get up and had to call her granddaughter to come help her up. States that she also struck her left arm sustaining a laceration that bled a lot. Currently, she denies any complaints. Denies further injuries. Related Data Home Medications Medication Instructions Recorded Confirmed amlodipine 10 mg tablet 10 mg PO HS 06/21/19 10/26/22 trazodone 100 mg tablet 100 mg PO HS 06/21/19 10/26/22 venlafaxine 75 mg capsule,extended 35 mg PO DAILY 06/21/19 10/26/22 release 24 hr hydrochlorothiazide 25 mg tablet 25 mg PO HS 10/01/21 10/26/22 losartan 50 mg tablet 50 mg PO HS 10/01/21 10/26/22 naproxen sodium 220 mg capsule 440 mg PO HS 10/26/22 10/26/22 (Aleve) Allergies Allergy/AdvReac Type Severity Reaction Status Date / Time lisinopril Allergy Itching Verified 03/26/23 11:30 Review of Systems Review of Systems: All systems reviewed & are unremarkable except as noted in HPI and below PMFSH Past Medical History Medical History Acute pancreatitis Anxiety Arthritis Cataracts, bilateral Colonic diverticular abscess Depression Diabetes GERD (gastroesophageal reflux disease) Hepatic steatosis History of kidney stones HTN (hypertension) Kidney stones Leukocytosis Mitral valve prolapse Nausea and vomiting in adult Obesity VARGAS on CPAP Osteoarthritis of right knee Peripheral neuropathy Right distal ureteral calculus Upper abdominal pain Surgical History Surgical History H/O lithotripsy History of bladder surgery History of hysterectomy History of total left knee replacement History of ureter stent Hx of cardiac catheterization Hx of cataract surgery Hx of cholecystectomy Family History Family History Sibling Diabetes mellitus Carcinoma of colon Mother , age 82 Heart disease Hypertension Cerebrovascular accident Father Diabetes mellitus Hypertension Family history of cardiovascular disease Social History Social History Social History: she has 4 children. she is and lives with her . 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 Her is a durable power publicity agent for healthcare. Code status full code Smoking status: Never smoker Alcohol intake: never Substance use: never Lack of Transportation: No Lack of Food: Never True Current Housing: I Have Housing Concerned About Future Housing: No Difficulty Paying Gas/Electric Bills: No Difficulty Paying for Meds: No Currently Unemployed: No Education: High School Diploma/GED Difficulty w/ Childcare or Family Care: No Living arrangements: with family Occupation/Education: retired Gender identity (if verbalized by the patient): Female Spiritual care concerns: No Agree to blood products: Yes Exam Narrative: GENERAL: Well-appearing, well-nourished, and in no acute distress. Pleasant and cooperative HEAD: Normocephalic, atraumatic. EYES: PERRLA and EOMI. ENT: Nares clear, no rhinorrhea or epistaxis. Mucous membranes moist. NECK: Supple. C-collar in place, no midline tenderness CHEST: No respiratory distress. HEART: Regular rate and rhythm ABDOMEN: nondistended EXTREMITIES: Normal range of motion. No edema. SKIN: Warm, dry, no rash. 3-4 cm laceration anterior upper left arm NEURO: No focal deficits. Alert and oriented x3. PSYCH: Normal mood and affect. Course Vit
[2023-03-26] MEDS: TETANUS,DIPHTHERIA,AC PERTUSSIS ADULT (0.5 ML) BOOSTRIX IM (14:01)
[2023-03-26] MEDS: LIDO 2%/EPINEPHRINE 1:100,000 20 ML VIAL (14:17)
[2023-03-26 14:37] VITALS: BP 131/71; PULSE 70; RESP 18; O2SAT 100
== END 2023-03-26 15:03 | disposition home or self-care (01) ==
PROVIDERS: Emergency Provider Emergency Medicine
DX: S41.112A Laceration without foreign body of left upper arm, initial encounter (principal); Z23 Encounter for immunization; I34.1 Nonrheumatic mitral (valve) prolapse; E11.42 Type 2 diabetes mellitus with diabetic polyneuropathy; E66.9 Obesity, unspecified; Z68.29 Body mass index [BMI] 29.0-29.9, adult; G47.33 Obstructive sleep apnea (adult) (pediatric); M17.11 Unilateral primary osteoarthritis, right knee; K21.9 Gastro-esophageal reflux disease without esophagitis; F41.9 Anxiety disorder, unspecified; F32.A Depression, unspecified; Z96.652 Presence of left artificial knee joint; Z87.442 Personal history of urinary calculi; Z98.49 Cataract extraction status, unspecified eye; Z90.710 Acquired absence of both cervix and uterus; Z90.49 Acquired absence of other specified parts of digestive tract; Z79.84 Long term (current) use of oral hypoglycemic drugs; M47.812 Spondylosis without myelopathy or radiculopathy, cervical region; W18.09XA Striking against other object with subsequent fall, initial encounter
CPT/HCPCS: 12002; 70450; 72125; 90471; 90715; 99284

== ENCOUNTER 2023-04-27 19:30 | Emergency (ER) | payer MEDICARE, SELFPAY ==
--- NOTE | ~2023-04-27 | CT_ITS ---
CT of the Abdomen and Pelvis: Indication: Abdominal pain Technique: 2.5 mm axial scans were obtained through the abdomen and pelvis following intravenous adm inistration of 100 cc of Omnipaque 350. Dose reduction technique was used on this scan by utilizing a utomated exposure control and iterative reconstruction technique. The dose-length product (DLP) was 5 51.66 mGy-cm. COMPARISON: 11/13/2022 Findings: Scans through the lung bases demonstrated stable left basilar pulmonary nodule. The liver, pancreas, adrenals and left kidney are within normal limits. Cholecystectomy clips are pre sent. There is a 1.3 x 0.7 cm right renal stone. There is probable mild enhancement and thickening of the urothelium at the right renal pelvis/proximal ureter. Calcified splenic granulomas are present. There are atherosclerotic calcifications of the aorta. No lymphadenopathy. There is mild wall thickening and adjacent inflammatory change at the gastric antrum/proximal duodenu m. No free air or abnormal fluid collection seen. No bowel obstruction. Images through the pelvis were performed. Urinary bladder unremarkable. No adnexal mass seen. No asci armand. Impression: Mild wall thickening and inflammatory change the gastric antrum/proximal duodenum. Findings are proba erlinda most suggestive of peptic ulcer disease versus other gastritis/duodenitis. Correlate clinically. No evidence of perforation. Consider endoscopy as indicated. Probable mild wall thickening and enhancement of the urothelium at the right renal pelvis/proximal ri ght ureter. Correlate for UTI. 1.3 x 0.7 cm nonobstructing right renal stone. Reviewed, dictated and finalized at location M. Impression: Mild wall thickening and inflammatory change the gastric antrum/proximal duoden um. Findings are probably most suggestive of peptic ulcer disease versus other gastritis/duodenitis. Correlate clinically. No evidence of perforation. Conside r endoscopy as indicated. Probable mild wall thickening and enhancement of the urothelium at the right re nal pelvis/proximal right ureter. Correlate for UTI. 1.3 x 0.7 cm nonobstructing right renal stone.
--- NOTE | 2023-04-27 20:05 | ECG_ITS ---
Measurements Intervals [place] Rate: 81 P: 53 MD: 172 QRS: -8 QRSD: 90 T: 70 QT: 370 QTc: 431 Interpretive Statements SINUS RHYTHM NONSPECIFIC ST AND T-WAVE ABNORMALITY COMPARED TO ECG 10/26/2022 14:14:11 NO SIGNIFICANT CHANGES Electronically Signed On 04-28-2023 12:16:48 CDT by Triny Welsh M.D.
[2023-04-27 20:06] VITALS: BP 159/75; PULSE 89; RESP 15; TEMP 36.6; O2SAT 98
[2023-04-27 22:00] LABS: Basophils Absolute Auto 0.1 K/mm3 (0.0-0.1); Basophils Percent Auto 0.7 % (0.2-1.2); Eosinophils Absolute Auto 0.7 K/mm3 (0-0.3); Eosinophils Percent Auto 7.1 % (0-4.4); Hematocrit 37.4 % (37.0-47.0); Hemoglobin 12.3 g/dL (12.0-15.0); Immature Granulocyte Absolute 0.02 K/mm3 (0.00-0.031); Immature Granulocyte Percent A 0.2 % (0-0.5); Lymphocytes Absolute Auto 2.33 K/mm3 (0.9-3.2); Lymphocytes Percent Auto 23.7 % (18.3-44.2); Mean Corpuscular HGB Conc 32.9 g/dl (32-36); Mean Corpuscular Hemoglobin 30.2 pg (26-34); Mean Corpuscular Volume 91.9 fl (80-100); Mean Platelet Volume 9.8 fl (7.4-10.4); Monocytes Absolute Auto 0.7 K/mm3 (0.1-0.6); Monocytes Percent Auto 6.9 % (2.6-8.5); Neutrophils Percent Auto 61.4 % (45.5-73.1); Platelet Count Result 300 k/mm3 (150-375); Red Blood Count 4.07 M/mm3 (4.2-5.4); Red Cell Distribution Width 13.8 % (11.5-14.5); White Blood Count 9.8 K/mm3 (4.5-10.0)
[2023-04-27 22:06] LABS: Appearance Urine Cloudy (Clear); Bacteria Urine None Seen /hpf; Bilirubin Urine Negative (Negative); Blood Urine 3+ (Negative); Color Urine Yellow (Yellow); Glucose Urine UA Negative (Negative); Ketones Urine Negative (Negative); Leukocyte Esterase Ur 2+ LEU/UL (Negative); Nitrate Urine Negative (Negative); Non Pathogenic Casts 0-2; Protein Urine Negative (Negative); RBC Urine 21-50 /hpf (0-2); Specific Grav Ur 1.016 (1.001-1.035); Squamous Epithelial Cell Urine Few /hpf (Few); Urobilinogen Urine 0.2 mg/dL (<2.0)
[2023-04-27 22:11] LABS: Add Urine Microscopic? YES
[2023-04-27 22:11] LABS: Partial Thromboplastin Time 31.6 SECONDS (22.3-36.8)
[2023-04-27 22:13] LABS: Alanine Aminotransferase 28 U/L (6-35); Albumin Level 4.2 g/dL (3.5-5.1); Alkaline Phosphatase 87 U/L (38-126); Anion Gap 10 mmol/L (8-16); Aspartate Amino Transferase 38 U/L (14-36); Blood Urea Nitrogen 27 mg/dL (7-17); Calcium 9.5 mg/dL (8.4-10.2); Carbon Dioxide 24 mmol/L (22-30); Chloride 100 mmol/L (98-107); Estimated CRCL calculation 28 ml/min; Estimated Glomerular Filt Rate 47; Glucose 130 mg/dL (65-110); Sodium 134 mmol/L (137-145)
[2023-04-28] VITALS (46 sets, daily range): BP systolic 122–166; BP diastolic 57–77; PULSE 69–102; RESP 11–35; O2SAT 92–100
[2023-04-28] MEDS: SODIUM CHLORIDE 0.9% IV 1,000 ML 999 ML IV CONT (02:14)
[2023-04-28] MEDS: ONDANSETRON INJ 4 MG/2 ML VIAL IV PUSH (02:16)
[2023-04-28] MEDS: MORPHINE SULFATE (*CRX) 2 MG/ML INJ IV PUSH (02:16)
[2023-04-28] MEDS: PANTOPRAZOLE SODIUM IV 40 MG VIAL IV PUSH (02:17)
--- NOTE | 2023-04-28 04:03 | ED.GENADULT ---
HPI - General Adult General Chief complaint: GI Bleed Stated complaint: blood in stool Time Seen by Provider: 04/28/23 01:02 History of Present Illness HPI narrative: Patient presents to the emergency department with her . She has had right shoulder discomfort and right upper quadrant pain. Patient has nausea vomiting and black stools. Denies fevers and chills. She has had a decreased appetite. Related Data Home Medications Medication Instructions Recorded Confirmed amlodipine 10 mg tablet 10 mg PO HS 06/21/19 10/26/22 trazodone 100 mg tablet 100 mg PO HS 06/21/19 10/26/22 venlafaxine 75 mg capsule,extended 35 mg PO DAILY 06/21/19 10/26/22 release 24 hr hydrochlorothiazide 25 mg tablet 25 mg PO HS 10/01/21 10/26/22 losartan 50 mg tablet 50 mg PO HS 10/01/21 10/26/22 naproxen sodium 220 mg capsule 440 mg PO HS 10/26/22 10/26/22 (Aleve) Allergies Allergy/AdvReac Type Severity Reaction Status Date / Time lisinopril Allergy Itching Verified 03/26/23 11:30 Review of Systems Review of Systems: Review of systems negative except what is documented in the [facility] Past Medical History Medical History Acute pancreatitis Anxiety Arthritis Cataracts, bilateral Colonic diverticular abscess Depression Diabetes GERD (gastroesophageal reflux disease) Hepatic steatosis History of kidney stones HTN (hypertension) Kidney stones Leukocytosis Mitral valve prolapse Nausea and vomiting in adult Obesity VARGAS on CPAP Osteoarthritis of right knee Peripheral neuropathy Right distal ureteral calculus Upper abdominal pain Surgical History Surgical History H/O lithotripsy History of bladder surgery History of hysterectomy History of total left knee replacement History of ureter stent Hx of cardiac catheterization Hx of cataract surgery Hx of cholecystectomy Family History Family History Sibling Diabetes mellitus Carcinoma of colon Mother , age 82 Heart disease Hypertension Cerebrovascular accident Father Diabetes mellitus Hypertension Family history of cardiovascular disease Social History Social History Social History: she has 4 children. she is and lives with her . 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 Her is a durable power bumper straightener for healthcare. Code status full code Smoking status: Never smoker Alcohol intake: never Substance use: never Lack of Transportation: No Lack of Food: Never True Current Housing: I Have Housing Concerned About Future Housing: No Difficulty Paying Gas/Electric Bills: No Difficulty Paying for Meds: No Currently Unemployed: No Education: High School Diploma/GED Difficulty w/ Childcare or Family Care: No Living arrangements: with family Occupation/Education: retired Gender identity (if verbalized by the patient): Female Spiritual care concerns: No Agree to blood products: Yes Exam Narrative: GENERAL: Well-appearing, well-nourished, and in no acute distress. HEAD: Normocephalic, atraumatic. EYES: PERRLA and EOMI. ENT: Nares clear, no rhinorrhea or epistaxis. Mucous membranes moist. NECK: Supple. CHEST: Clear to auscultation. No respiratory distress. HEART: Regular rate and rhythm. ABDOMEN: Soft, nontender, nondistended. EXTREMITIES: Normal range of motion. No edema. SKIN: Warm, dry, no rash. NEURO: No focal deficits. Alert and oriented x3. PSYCH: Normal mood and affect. Course Vital Signs Vital signs: Vital Signs Temperature 36.6 C 04/27/23 20:06 Pulse Rate 89 04/27/23 20:06 Respiratory Rate 15 04/27/23 20:06 Blood Pressure 159/75 H 04/27/23 20:06 Pulse Oximetry 98 04/27/23 20:06 Oxygen Deliv
[2023-04-28 06:06] LABS: Anion Gap 8 mmol/L (8-16); Blood Urea Nitrogen 20 mg/dL (7-17); Carbon Dioxide 23 mmol/L (22-30); Chloride 103 mmol/L (98-107); Estimated CRCL calculation 34 ml/min; Estimated Glomerular Filt Rate 60; Glucose 120 mg/dL (65-110); Sodium 134 mmol/L (137-145)
--- NOTE | 2023-04-28 07:25 | PC.NURSE ---
Report to [facility] Calzada
== END 2023-04-28 08:10 | disposition home or self-care (01) ==
PROVIDERS: Emergency Provider Emergency Medicine
DX: K29.70 Gastritis, unspecified, without bleeding (principal); N39.0 Urinary tract infection, site not specified; R31.9 Hematuria, unspecified; M25.511 Pain in right shoulder; R10.11 Right upper quadrant pain; F41.9 Anxiety disorder, unspecified; M19.90 Unspecified osteoarthritis, unspecified site; F32.A Depression, unspecified; E11.9 Type 2 diabetes mellitus without complications; K21.9 Gastro-esophageal reflux disease without esophagitis; K76.0 Fatty (change of) liver, not elsewhere classified; Z87.442 Personal history of urinary calculi; I10 Essential (primary) hypertension; G47.30 Sleep apnea, unspecified
CPT/HCPCS: 36415; 74177; 80048; 80053; 81001; 85025; 85610; 85730; 86850; 86900; 86901; 87086; 87088; 93005; 96361; 96374; 96375; 99284; C9113; J2270; J2405; J7030; Q9967

== ENCOUNTER 2023-06-22 19:59 | Inpatient (IN) | payer MEDICARE, SELFPAY ==
[2023-06-22] VITALS (10 sets, daily range): BP systolic 136–197; BP diastolic 68–95; PULSE 89–103; RESP 15–29; TEMP 36.3; O2SAT 87–97
--- NOTE | ~2023-06-22 | XR_ITS ---
EXAMINATION: XR chest 2V DATE: 06/22/2023 20:37 INDICATION: Hypertension and shortness of breath TECHNIQUE: frontal and lateral views of the chest were obtained. COMPARISON: Chest radiograph dated 10/26/2022 FINDINGS: The lungs remain clear with no focal airspace opacities, pulmonary edema, pleural effusion or pneumot horax. The cardiomediastinal silhouette is normal. Moderate thoracic spondylosis with bridging osteop hytes at multiple levels consistent with diffuse idiopathic skeletal hyperostosis (DISH). Moderate p olyarticular osteoarthritis at the bilateral shoulders. IMPRESSION: 1. No acute cardiopulmonary disease. Reviewed, dictated and finalized at location A. [facility] NURSE
--- NOTE | ~2023-06-22 | CT_ITS ---
EXAMINATION: CTA chest PE protocol DATE: 06/22/2023 23:22 INDICATION: Hypoxia and shortness of breath TECHNIQUE: Computed tomography (CT) pulmonary angiogram of the chest was performed with 100 mL Omnipa que-350 intravenous contrast. Additional 3D reconstructions utilizing coronal maximum intensity proje ction (MIP) were performed. Automated exposure control and iterative reconstruction technique were em ployed. The dose-length product was 309.86 mGy-cm. COMPARISON: 05/24/2021 and 12/08/2019 FINDINGS: Excellent contrast opacification of the pulmonary arteries. There is mild streak artifact from dense contrast in the superior vena cava and right atrium. Mild to moderate basilar predominant respiratory motion which decreases sensitivity in the smaller basilar subsegmental pulmonary arteries. No eviden t pulmonary embolism. There is diffuse bronchial wall thickening. There is some scattered mucous plug ging in the bilateral lower lobes. Stable appearance of a small region of round atelectasis at the la teral basilar left lower lobe. Calcified nodules in the left upper lobe along with multiple splenic c alcification is in a single hepatic calcific location consistent with old granulomatous disease. No p neumonia, pulmonary edema or pleural effusion. Heart size is normal. No pericardial effusion. Thoraci c aorta is normal in caliber with no dissection. No pathologically enlarged thoracic lymphadenopathy. Small sliding-type hiatal hernia. Cholecystectomy clips the gallbladder fossa. 1.3 cm nonobstructing stone at the right renal pelvis with additional 4 mm stone in a middle calyx of the right kidney. Mo derate thoracic spondylosis with bridging osteophytes at multiple levels consistent with diffuse idio pathic skeletal hyperostosis (DISH). IMPRESSION: 1. No pulmonary embolism. 2. Likely bronchitis with diffuse mild bronchial wall thickening and scattered mucous plugging in the bilateral lower lobes. 3. Small sliding-type hiatal hernia. 4. Right nephrolithiasis. Reviewed, dictated and finalized at location A. K PILOT
--- NOTE | 2023-06-22 20:02 | ECG_ITS ---
Measurements Intervals [place] Rate: 99 P: 74 SC: 218 QRS: 4 QRSD: 85 T: 66 QT: 326 QTc: 418 Interpretive Statements SINUS RHYTHM WITH FIRST DEGREE AV BLOCK BASELINE WANDER- V2, V4-V6 BORDERLINE ECG COMPARED TO ECG 04/27/2023 21:43:01 FIRST DEGREE AV BLOCK NOW PRESENT Electronically Signed On 06-23-2023 6:34:42 PLUMBING TECHNICIAN by Abner Schaffer D.O.
[2023-06-22 20:29] LABS: Basophils Absolute Auto 0.1 K/mm3 (0.0-0.1); Basophils Percent Auto 0.5 % (0.2-1.2); Eosinophils Absolute Auto 0.7 K/mm3 (0-0.3); Eosinophils Percent Auto 6.5 % (0-4.4); Hematocrit 41.3 % (37.0-47.0); Hemoglobin 13.3 g/dL (12.0-15.0); Immature Granulocyte Absolute 0.04 K/mm3 (0.00-0.031); Immature Granulocyte Percent A 0.4 % (0-0.5); Lymphocytes Absolute Auto 1.56 K/mm3 (0.9-3.2); Lymphocytes Percent Auto 15.1 % (18.3-44.2); Mean Corpuscular HGB Conc 32.2 g/dl (32-36); Mean Corpuscular Hemoglobin 30.1 pg (26-34); Mean Corpuscular Volume 93.4 fl (80-100); Monocytes Absolute Auto 0.7 K/mm3 (0.1-0.6); Monocytes Percent Auto 7.1 % (2.6-8.5); Neutrophils Absolute Auto 7.3 K/mm3 (1.3-6.7); Neutrophils Percent Auto 70.4 % (45.5-73.1); Platelet Count Result 301 k/mm3 (150-375); Red Blood Count 4.42 M/mm3 (4.2-5.4); Red Cell Distribution Width 13.8 % (11.5-14.5); White Blood Count 10.4 K/mm3 (4.5-10.0)
[2023-06-22 20:40] LABS: Alanine Aminotransferase 36 U/L (6-35); Albumin Level 4.3 g/dL (3.5-5.1); Alkaline Phosphatase 112 U/L (38-126); Anion Gap 11 mmol/L (8-16); Aspartate Amino Transferase 44 U/L (14-36); Bilirubin,Total 0.8 mg/dL (0.2-1.3); Blood Urea Nitrogen 18 mg/dL (7-17); Calcium 9.6 mg/dL (8.4-10.2); Carbon Dioxide 22 mmol/L (22-30); Chloride 103 mmol/L (98-107); Estimated CRCL calculation 33 ml/min; Estimated Glomerular Filt Rate 59; Glucose 170 mg/dL (65-110); Potassium 4.1 mmol/L (3.4-5.0); Sodium 136 mmol/L (137-145)
[2023-06-22 20:55] LABS: Troponin I < 0.012 ng/mL (0.000-0.034)
[2023-06-22 21:05] LABS: Influenza A QL RT-PCR Negative (Negative); Influenza B QL RT-PCR Negative (Negative); SARS-CoV-2 RNA PCR Negative (Negative)
[2023-06-22] MEDS: IPRATROPIUM BR 0.02% INH SOLN 0.5 MG/2.5 ML VIAL INHALATION (22:48)
[2023-06-22] MEDS: ALBUTEROL SULFATE NEB 2.5 MG/3 ML INH INHALATION (22:48)
[2023-06-22 22:55] LABS: Alveolar/Arterial O2 Gradient 105.9 mmHg; Fractional Inspired Oxygen 32 %; HCO3 ABG 23.7 mEq/l (22.0-26.0); Oxygen Content ABG 18.2 %vol (16.0-22.0); Oxygen Saturation ABG 93.5 % (95.0-100.0); Oxyhemoglobin 92.5 % THb (90.0-100.0); PCO2 ABG 43.8 mmHg (35.0-45.0); PO2 FiO2 Ratio Arterial Blood 2.22 %; pH ABG 7.351 (7.350-7.450)
[2023-06-22 22:56] LABS: Device NASAL CANNULA; Modified Allen's Test Pass; Site Drawn RIGHT RADIAL
[2023-06-22 22:59] LABS: RSV RNA, RT-PCR Negative (Negative)
[2023-06-22 23:03] LABS: Lactic Acid Reflex 1.3 mmol/L (0.7-2.0)
[2023-06-22 23:12] LABS: NT Pro B Type Natriuretic Pept 335 pg/mL (19.9-100)
--- NOTE | 2023-06-22 23:50 | ED.GENADULT ---
HPI - General Adult General Chief complaint: Shortness of Breath/Dyspnea Stated complaint: shortness of breath Time Seen by Provider: 06/22/23 22:18 History of Present Illness HPI narrative: patient is a 88-year-old female who presents emerged from when she complained of shortness of breath. Patient reports over the last 4 days that she has been having a cough has been nonproductive. The patient reports that she started having shortness of breath and reports it is difficult to get a good deep breath. Patient reports that she has had no COVID exposure reports that she has had no chest pain with this reports that she is wheezing patient reports that she is not on home oxygen. Related Data Home Medications Medication Instructions Recorded Confirmed amlodipine 10 mg tablet 10 mg PO HS 06/21/19 10/26/22 trazodone 100 mg tablet 100 mg PO HS 06/21/19 10/26/22 venlafaxine 75 mg capsule,extended 35 mg PO DAILY 06/21/19 10/26/22 release 24 hr hydrochlorothiazide 25 mg tablet 25 mg PO HS 10/01/21 10/26/22 losartan 50 mg tablet 50 mg PO HS 10/01/21 10/26/22 naproxen sodium 220 mg capsule 440 mg PO HS 10/26/22 10/26/22 (Aleve) Allergies Allergy/AdvReac Type Severity Reaction Status Date / Time lisinopril Allergy Itching Verified 06/22/23 22:52 Review of Systems Review of Systems: A 10 system review of systems was completed on the patient and is negative except for what is stated in the HPI. Nursing and ancillary documentation was reviewed. [facility] Past Medical History Medical History Acute pancreatitis Anxiety Arthritis Cataracts, bilateral Colonic diverticular abscess Depression Diabetes GERD (gastroesophageal reflux disease) Hepatic steatosis History of kidney stones HTN (hypertension) Kidney stones Leukocytosis Mitral valve prolapse Nausea and vomiting in adult Obesity VARGAS on CPAP Osteoarthritis of right knee Peripheral neuropathy Right distal ureteral calculus Upper abdominal pain Surgical History Surgical History H/O lithotripsy History of bladder surgery History of hysterectomy History of total left knee replacement History of ureter stent Hx of cardiac catheterization Hx of cataract surgery Hx of cholecystectomy Family History Family History Sibling Diabetes mellitus Carcinoma of colon Mother , age 82 Heart disease Hypertension Cerebrovascular accident Father Diabetes mellitus Hypertension Family history of cardiovascular disease Social History Social History Social History: she has 4 children. she is and lives with her . 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 Her is a durable power 411 directory assistance operator for healthcare. Code status full code Smoking status: Never smoker Alcohol intake: never Substance use: never Lack of Transportation: No Lack of Food: Never True Current Housing: I Have Housing Concerned About Future Housing: No Difficulty Paying Gas/Electric Bills: No Difficulty Paying for Meds: No Currently Unemployed: No Education: High School Diploma/GED Difficulty w/ Childcare or Family Care: No Living arrangements: with family Occupation/Education: retired Gender identity (if verbalized by the patient): Female Spiritual care concerns: No Agree to blood products: Yes Exam Narrative: GENERAL: Well-appearing, well-nourished, and in no acute distress. HEAD: Normocephalic, atraumatic. EYES: PERRLA and EOMI. ENT: Nares clear, no rhinorrhea or epistaxis. Mucous membranes moist. NECK: Supple. CHEST: Diffuse wheezing present bilaterally, moderate tachypnea, room air pulse ox is hypoxic.. HEART: Regular rate and rhythm. No murmu
[2023-06-23] VITALS (25 sets, daily range): BP systolic 135–165; BP diastolic 64–86; PULSE 77–112; RESP 13–24; TEMP 36.2–36.8; O2SAT 92–99; BMI 28.6
[2023-06-23] MEDS: ALBUTEROL SULFATE NEB 2.5 MG/3 ML INH INHALATION ×4 (03:14→20:56)
[2023-06-23] MEDS: IPRATROPIUM BR 0.02% INH SOLN 0.5 MG/2.5 ML VIAL INHALATION ×4 (03:14→20:56)
[2023-06-23] MEDS: methylPREDNISolone SOD SUCC 125 MG VIAL 60 MG IV PUSH ×3 (06:18→21:14)
[2023-06-23 08:09] LABS: Basophils Percent Auto 0.2 % (0.2-1.2); Hematocrit 42.6 % (37.0-47.0); Hemoglobin 13.4 g/dL (12.0-15.0); Immature Granulocyte Absolute 0.04 K/mm3 (0.00-0.031); Immature Granulocyte Percent A 0.5 % (0-0.5); Lymphocytes Absolute Auto 0.66 K/mm3 (0.9-3.2); Lymphocytes Percent Auto 7.5 % (18.3-44.2); Mean Corpuscular HGB Conc 31.5 g/dl (32-36); Mean Corpuscular Hemoglobin 29.7 pg (26-34); Mean Corpuscular Volume 94.5 fl (80-100); Mean Platelet Volume 9.8 fl (7.4-10.4); Monocytes Absolute Auto 0.1 K/mm3 (0.1-0.6); Monocytes Percent Auto 0.7 % (2.6-8.5); Neutrophils Percent Auto 91.1 % (45.5-73.1); Platelet Count Result 316 k/mm3 (150-375); Red Blood Count 4.51 M/mm3 (4.2-5.4); Red Cell Distribution Width 13.7 % (11.5-14.5); White Blood Count 8.8 K/mm3 (4.5-10.0)
[2023-06-23 08:20] LABS: Alanine Aminotransferase 34 U/L (6-35); Albumin Level 4.2 g/dL (3.5-5.1); Alkaline Phosphatase 99 U/L (38-126); Anion Gap 12 mmol/L (8-16); Aspartate Amino Transferase 35 U/L (14-36); Bilirubin,Total 1.1 mg/dL (0.2-1.3); Blood Urea Nitrogen 15 mg/dL (7-17); Calcium 9.8 mg/dL (8.4-10.2); Carbon Dioxide 21 mmol/L (22-30); Chloride 103 mmol/L (98-107); Estimated CRCL calculation 34 ml/min; Estimated Glomerular Filt Rate 59; Glucose 212 mg/dL (65-110); Potassium 5.1 mmol/L (3.4-5.0); Sodium 136 mmol/L (137-145)
[2023-06-23] MEDS: VENLAFAXINE HCL XR 37.5 MG CAP PO (09:10)
[2023-06-23] MEDS: ENOXAPARIN 40 MG/0.4 ML SYRINGE SUB-Q (09:10)
--- NOTE | 2023-06-23 11:10 | PM.IMHP ---
H&P: HPI History of Present Illness Date/Time: 06/23/23 11:10 Chief Complaint: Shortness of breath, cough Narrative: This is a 88-year-old female with a past medical history of diabetes, hypertension diabetic neuropathy, constipation and depression that presented to the ED on 06/22/2023 due to shortness of breath and coughing. symptoms began a couple days prior and she was able to manage them at home until she woke up that morning and was unable to breathe due to uncontrollable coughing. Patient found have a white blood cell count of 10.4, low pCO2 on ABG, hypoxemia requiring 2 L of oxygen and elevated BUN year at 20 chest x-ray did not reveal any acute cardiopulmonary process. CTA of the chest ruled out pulmonary embolism but showed likely bronchitis with diffuse mild bronchial wall thickening and scattered mucous plugging in bilateral lower lobes. She started on IV Solu-Medrol and DuoNebs. Patient ended for further evaluation of bronchitis, oxygen supplementation and IV steroids. [facility] Past Medical History Medical History Acute pancreatitis Anxiety Arthritis Cataracts, bilateral Colonic diverticular abscess Depression Diabetes GERD (gastroesophageal reflux disease) Hepatic steatosis History of kidney stones HTN (hypertension) Kidney stones Leukocytosis Mitral valve prolapse Nausea and vomiting in adult Obesity VARGAS on CPAP Osteoarthritis of right knee Peripheral neuropathy Right distal ureteral calculus Upper abdominal pain Surgical History Surgical History H/O lithotripsy History of bladder surgery History of hysterectomy History of total left knee replacement History of ureter stent Hx of cardiac catheterization Hx of cataract surgery Hx of cholecystectomy Family History Family History (Updated 06/23/23 @ 11:27 by Arpita Avila PA-C) Sibling Diabetes mellitus Carcinoma of colon Mother , age 82 Heart disease Hypertension Cerebrovascular accident Father Diabetes mellitus Hypertension Family history of cardiovascular disease Daughter Cystic fibrosis 2 daughters Social History Social History (Updated 06/23/23 @ 11:29 by Arpita Avila PA-C) Social History: She has 4 children. She is and lives with her who she is now at the full top coater of due to his dementia.. 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 Her is a durable power traffic law attorney for healthcare. Code status full code Smoking status: Never smoker Alcohol intake: never Substance use: never Lack of Transportation: No Lack of Food: Never True Current Housing: I Have Housing Concerned About Future Housing: No Difficulty Paying Gas/Electric Bills: No Difficulty Paying for Meds: No Currently Unemployed: No Education: Grade School Difficulty w/ Childcare or Family Care: No Living arrangements: with family Occupation/Education: retired Gender identity (if verbalized by the patient): Female Spiritual care concerns: No Agree to blood products: Yes Meds Home Medications and Allergies Home Medications Medication Instructions Recorded Confirmed Type amlodipine 10 mg tablet 10 mg PO HS 06/21/19 06/23/23 History trazodone 100 mg tablet 100 mg PO HS 06/21/19 06/23/23 History venlafaxine 75 mg capsule,extended 37.5 mg PO DAILY 06/21/19 06/23/23 History release 24 hr losartan 50 mg tablet 50 mg PO HS 10/01/21 06/23/23 History cholestyramine (with sugar) 4 gram See Rx Instructions .Route 07/09/22 06/23/23 Rx oral powder .COMPLEX #1,134 grams metformin 500 mg tablet 500 mg PO DAILY 06/23/23 06/23/23 History Allergies Allergy/AdvReac Type Severity Reaction Status Date / Time lisinopril Allergy Itching Verified 06/23/23 02:21 Vital Signs Vital Signs - 24 hr 06/22/23 20:22 06/22/23 22:10 06/22/23
[2023-06-23 11:17] LABS: Glucose Point of Care 266 mg/dl (65-105)
[2023-06-23] MEDS: INSULIN ASPART (*BKC) 100 UNITS/ML SUB-Q ×3 (12:08→21:16)
[2023-06-23 16:23] LABS: Glucose Point of Care 276 mg/dl (65-105)
[2023-06-23 20:30] LABS: Glucose Point of Care 228 mg/dl (65-105)
[2023-06-23] MEDS: LOSARTAN POTASSIUM 50 MG TABLET PO (21:16)
[2023-06-23] MEDS: traZODone HCL 50 MG TABLET 100 MG PO (21:16)
[2023-06-23] MEDS: amLODIPine BESYLATE 5 MG TABLET 10 MG PO (21:16)
[2023-06-24] VITALS (15 sets, daily range): BP systolic 133–166; BP diastolic 64–81; PULSE 75–107; RESP 14–20; TEMP 36.6–37.1; O2SAT 94–98
[2023-06-24] MEDS: IPRATROPIUM BR 0.02% INH SOLN 0.5 MG/2.5 ML VIAL INHALATION ×4 (03:11→19:52)
[2023-06-24] MEDS: ALBUTEROL SULFATE NEB 2.5 MG/3 ML INH INHALATION (03:12)
[2023-06-24] MEDS: methylPREDNISolone SOD SUCC 125 MG VIAL 60 MG IV PUSH ×3 (04:54→21:12)
[2023-06-24 06:31] LABS: Hematocrit 38.9 % (37.0-47.0); Hemoglobin 12.7 g/dL (12.0-15.0); Mean Corpuscular HGB Conc 32.6 g/dl (32-36); Mean Corpuscular Hemoglobin 30.3 pg (26-34); Mean Corpuscular Volume 92.8 fl (80-100); Mean Platelet Volume 10.2 fl (7.4-10.4); Platelet Count Result 298 k/mm3 (150-375); Red Blood Count 4.19 M/mm3 (4.2-5.4); Red Cell Distribution Width 14.1 % (11.5-14.5); White Blood Count 17.4 K/mm3 (4.5-10.0)
[2023-06-24 06:59] LABS: Anion Gap 9 mmol/L (8-16); Blood Urea Nitrogen 25 mg/dL (7-17); Calcium 9.6 mg/dL (8.4-10.2); Carbon Dioxide 22 mmol/L (22-30); Chloride 104 mmol/L (98-107); Estimated CRCL calculation 28 ml/min; Estimated Glomerular Filt Rate 47; Glucose 212 mg/dL (65-110); Potassium 4.6 mmol/L (3.4-5.0); Sodium 135 mmol/L (137-145)
[2023-06-24 07:42] LABS: Glucose Point of Care 198 mg/dl (65-105)
[2023-06-24] MEDS: LEVALBUTEROL NEB 1.25 MG/3 ML INHALATION ×3 (08:36→19:52)
[2023-06-24] MEDS: VENLAFAXINE HCL XR 37.5 MG CAP PO (09:33)
[2023-06-24] MEDS: ENOXAPARIN 40 MG/0.4 ML SYRINGE SUB-Q (09:36)
--- NOTE | 2023-06-24 10:28 | P.PNIM_ITS ---
Progress Note: A&P Assessment and Plan (1) Acute hypoxemic respiratory failure: Code(s): J96.01 - Acute respiratory failure with hypoxia Status: Acute Assessment and Plan: 06/23/23: * Patient requiring 2 L of oxygen on presentation. * Chest x-ray no acute cardiopulmonary process. * CTA no pulmonary embolism * Likely due to acute bronchitis. No history lung disease. * Wean oxygen to maintain O2 saturation greater than 90%. * DuoNebs scheduled q.6 hours 06/24/23: * Patient currently on room air * Wheezing noted throughout all lung diego * Continue DuoNebs and Solu-Medrol (2) Bronchitis: Code(s): J40 - Bronchitis, not specified as acute or chronic Status: Acute Assessment and Plan: 06/23/23: * CTA negative for pulmonary embolism but did show an acute bronchitis. * Solu-Medrol 60 mg IV q.8 hours. Titrate down as needed. * DuoNebs q.6 hours. * Wean oxygen to maintain O2 saturation greater than 90%. 06/24/23: * Patient reports upper respiratory symptoms for 1.5 weeks now that has progressively gotten worse * Continue with Solu-Medrol * Continue with DuoNebs * Currently on room air, however patient wheezing throughout all lung diego * Will start levofloxacin 750 mg, renal dosing, as precautionary * White blood cell count 17.4 today however this could be due to starting Solu- Medrol yesterday * Continue to trend labs (3) Diabetes: Qualifiers: Diabetes mellitus complication status: without complication Diabetes mellitus laborer marine terminal insulin use: without halfway use Diabetes mellitus type: type 2 Qualified Code(s): E11.9 - Type 2 diabetes mellitus without complications Code(s): E11.9 - Type 2 diabetes mellitus without complications Status: Chronic Assessment and Plan: 06/23/23: * Accu-checks qAc and HS and Hold oral hypoglycemics * Initiate hypoglycemic precautions * Low-dose sliding scale 06/24/23: * Blood sugars ranging 198-212 * Will increase to high-dose sliding scale as the increase in her blood sugars could be due to the Solu-Medrol being started yesterday. (4) HTN (hypertension): Code(s): I10 - Essential (primary) hypertension Status: Chronic Assessment and Plan: 06/23/23: * continue amlodipine and losartan. 06/24/23: * Blood pressure ranging 133/65 to 165/70 * Continue with current treatment plan (5) VARGAS on CPAP: Code(s): G47.33 - Obstructive sleep apnea (adult) (pediatric); Z99.89 - Dependence on other enabling machines and devices Status: Chronic Assessment and Plan: 06/23/23: * CPAP provide 06/24/23: * Continue with current treatment plan Time Spent With Patient Time with patient: Greater than 35 minutes Subjective Date/time seen: 06/24/23 10:28 Interval history: This is an 88 year old female who presented to the hospital on 06/22/23 with complaints of shortness of breath and coughing. Patient was found to be hypoxic requiring 2L NC on arrival. Work up in hospital included a chest x-ray that did not show any acute cardiopulmonary disease and a CTA of the chest which was negative for PE however revealed bronchitis with diffuse mild bronchial wall thickening and scattered mucous plugging in the bilateral lower lobes. Labs revealed WBC 10.4, Na+ 134, BUN 20, Creatinine 0.80, pO2 71. EKG revealed 1st de gree AVB, rate 99. On examination patient is alert oriented x4 while lying in the bed. VSS, she is afebrile, currently on room air. She d
--- NOTE | 2023-06-24 10:28 | PM.IMPN ---
Progress Note: A&P Assessment and Plan (1) Acute hypoxemic respiratory failure: Code(s): J96.01 - Acute respiratory failure with hypoxia Status: Acute Assessment and Plan: 06/23/23: Patient requiring 2 L of oxygen on presentation. Chest x-ray no acute cardiopulmonary process. CTA no pulmonary embolism Likely due to acute bronchitis. No history lung disease. Wean oxygen to maintain O2 saturation greater than 90%. DuoNebs scheduled q.6 hours 06/24/23: Patient currently on room air Wheezing noted throughout all lung diego Continue DuoNebs and Solu-Medrol (2) Bronchitis: Code(s): J40 - Bronchitis, not specified as acute or chronic Status: Acute Assessment and Plan: 06/23/23: CTA negative for pulmonary embolism but did show an acute bronchitis. Solu-Medrol 60 mg IV q.8 hours. Titrate down as needed. DuoNebs q.6 hours. Wean oxygen to maintain O2 saturation greater than 90%. 06/24/23: Patient reports upper respiratory symptoms for 1.5 weeks now that has progressively gotten worse Continue with Solu-Medrol Continue with DuoNebs Currently on room air, however patient wheezing throughout all lung diego Will start levofloxacin 750 mg, renal dosing, as precautionary White blood cell count 17.4 today however this could be due to starting Solu-Medrol yesterday Continue to trend labs (3) Diabetes: Qualifiers: Diabetes mellitus complication status: without complication Diabetes mellitus care home insulin use: without intermission coordinator use Diabetes mellitus type: type 2 Qualified Code(s): E11.9 - Type 2 diabetes mellitus without complications Code(s): E11.9 - Type 2 diabetes mellitus without complications Status: Chronic Assessment and Plan: 06/23/23: Accu-checks qAc and HS and Hold oral hypoglycemics Initiate hypoglycemic precautions Low-dose sliding scale 06/24/23: Blood sugars ranging 198-212 Will increase to high-dose sliding scale as the increase in her blood sugars could be due to the Solu-Medrol being started yesterday. (4) HTN (hypertension): Code(s): I10 - Essential (primary) hypertension Status: Chronic Assessment and Plan: 06/23/23: continue amlodipine and losartan. 06/24/23: Blood pressure ranging 133/65 to 165/70 Continue with current treatment plan (5) VARGAS on CPAP: Code(s): G47.33 - Obstructive sleep apnea (adult) (pediatric); Z99.89 - Dependence on other enabling machines and devices Status: Chronic Assessment and Plan: 06/23/23: CPAP provide 06/24/23: Continue with current treatment plan Time Spent With Patient Time with patient: Greater than 35 minutes Subjective Date/time seen: 06/24/23 10:28 Interval history: This is an 88 year old female who presented to the hospital on 06/22/23 with complaints of shortness of breath and coughing. Patient was found to be hypoxic requiring 2L NC on arrival. Work up in hospital included a chest x-ray that did not show any acute cardiopulmonary disease and a CTA of the chest which was negative for PE however revealed bronchitis with diffuse mild bronchial wall thickening and scattered mucous plugging in the bilateral lower lobes. Labs revealed WBC 10.4, Na+ 134, BUN 20, Creatinine 0.80, pO2 71. EKG revealed 1st degree AVB, rate 99. On examination patient is alert oriented x4 while lying in the bed. VSS, she is afebrile, currently on room air. She denies any pain at this time. She does endorse shortness of breath and wheezing. She denies any nausea, vomiting, diarrhea, abdominal pain, chest pain, headache. Labs today reveal WBC 17.4 likely increased due to steroid, Na+ 135, BUN 25, Creatinine 1.10, BG ranging 198-212. Will start patient on levofloxacin 750 mg x1 as this is renal dosing. Patient will also continue breathing treatments and Solu-Medrol 60 mg. Review of Systems Review of Systems: All s
[2023-06-24 11:14] LABS: Glucose Point of Care 268 mg/dl (65-105)
[2023-06-24] MEDS: INSULIN ASPART (*BKC) 100 UNITS/ML SUB-Q ×2 (11:53→21:13)
--- NOTE | 2023-06-24 14:50 | PCCCNOTE ---
On 06/24/23, the student, [Kim Francis], provided care and completed [facility] documentation on this patient. I have reviewed the student's documentation and agree with the findings.
[2023-06-24 16:17] LABS: Glucose Point of Care 180 mg/dl (65-105)
[2023-06-24] MEDS: PHENOL/SOD PHENO SPRAY CHERRY (*BKC) 1 SPRAY MUCOUS MEM (18:11)
[2023-06-24] MEDS: levoFLOXacin 750 MG TABLET PO (18:15)
[2023-06-24 20:46] LABS: Glucose Point of Care 213 mg/dl (65-105)
[2023-06-24] MEDS: traZODone HCL 50 MG TABLET 100 MG PO (21:12)
[2023-06-24] MEDS: LOSARTAN POTASSIUM 50 MG TABLET PO (21:12)
[2023-06-24] MEDS: amLODIPine BESYLATE 5 MG TABLET 10 MG PO (21:12)
[2023-06-25] VITALS (11 sets, daily range): BP systolic 119–177; BP diastolic 56–81; PULSE 73–119; RESP 16–20; TEMP 36.3–36.6; O2SAT 92–97
[2023-06-25] MEDS: LEVALBUTEROL NEB 1.25 MG/3 ML INHALATION ×3 (02:06→20:05)
[2023-06-25] MEDS: IPRATROPIUM BR 0.02% INH SOLN 0.5 MG/2.5 ML VIAL INHALATION ×3 (02:06→20:05)
[2023-06-25] MEDS: methylPREDNISolone SOD SUCC 125 MG VIAL 60 MG IV PUSH ×3 (06:01→23:51)
[2023-06-25 06:28] LABS: Basophils Percent Auto 0.2 % (0.2-1.2); Hemoglobin 12.4 g/dL (12.0-15.0); Immature Granulocyte Absolute 0.24 K/mm3 (0.00-0.031); Immature Granulocyte Percent A 1.3 % (0-0.5); Lymphocytes Absolute Auto 0.79 K/mm3 (0.9-3.2); Lymphocytes Percent Auto 4.3 % (18.3-44.2); Mean Corpuscular HGB Conc 31.8 g/dl (32-36); Mean Corpuscular Hemoglobin 29.9 pg (26-34); Mean Platelet Volume 10.5 fl (7.4-10.4); Monocytes Absolute Auto 0.5 K/mm3 (0.1-0.6); Monocytes Percent Auto 2.5 % (2.6-8.5); Neutrophils Absolute Auto 16.7 K/mm3 (1.3-6.7); Neutrophils Percent Auto 91.7 % (45.5-73.1); Platelet Count Result 327 k/mm3 (150-375); Red Blood Count 4.15 M/mm3 (4.2-5.4); Red Cell Distribution Width 14.3 % (11.5-14.5); White Blood Count 18.2 K/mm3 (4.5-10.0)
[2023-06-25 06:44] LABS: Alanine Aminotransferase 34 U/L (6-35); Albumin Level 3.6 g/dL (3.5-5.1); Alkaline Phosphatase 78 U/L (38-126); Anion Gap 10 mmol/L (8-16); Aspartate Amino Transferase 53 U/L (14-36); Bilirubin,Total 0.9 mg/dL (0.2-1.3); Blood Urea Nitrogen 40 mg/dL (7-17); Calcium 9.4 mg/dL (8.4-10.2); Carbon Dioxide 18 mmol/L (22-30); Chloride 104 mmol/L (98-107); Estimated CRCL calculation 26 ml/min; Estimated Glomerular Filt Rate 43; Glucose 201 mg/dL (65-110); Potassium 4.4 mmol/L (3.4-5.0); Sodium 132 mmol/L (137-145)
[2023-06-25 07:26] LABS: Burr Cells 1+ (NORMAL); Platelet Estimate Adequate (Adequate); Poikilocytosis 1+ (NORMAL); Schistocytes None Seen (NORMAL)
[2023-06-25 08:13] LABS: Glucose Point of Care 192 mg/dl (65-105)
[2023-06-25] MEDS: VENLAFAXINE HCL XR 37.5 MG CAP PO (09:08)
[2023-06-25] MEDS: ENOXAPARIN 40 MG/0.4 ML SYRINGE SUB-Q (09:14)
--- NOTE | 2023-06-25 09:20 | P.PNIM_ITS ---
Progress Note: A&P Assessment and Plan (1) Acute hypoxemic respiratory failure: Code(s): J96.01 - Acute respiratory failure with hypoxia Status: Acute Assessment and Plan: 06/23/23: * Patient requiring 2 L of oxygen on presentation. * Chest x-ray no acute cardiopulmonary process. * CTA no pulmonary embolism * Likely due to acute bronchitis. No history lung disease. * Wean oxygen to maintain O2 saturation greater than 90%. * DuoNebs scheduled q.6 hours 06/24/23: * Patient currently on room air * Wheezing noted throughout all lung diego * Continue DuoNebs and Solu-Medrol 06/25/23: * Remains on room air * Wheezing noted throughout all lung diego, however better than yesterday * Continue DuoNebs * Will start decreasing Solu-Medrol today. (2) Bronchitis: Code(s): J40 - Bronchitis, not specified as acute or chronic Status: Acute Assessment and Plan: 06/23/23: * CTA negative for pulmonary embolism but did show an acute bronchitis. * Solu-Medrol 60 mg IV q.8 hours. Titrate down as needed. * DuoNebs q.6 hours. * Wean oxygen to maintain O2 saturation greater than 90%. 06/24/23: * Patient reports upper respiratory symptoms for 1.5 weeks now that has progressively gotten worse * Continue with Solu-Medrol * Continue with DuoNebs * Currently on room air, however patient wheezing throughout all lung diego * Will start levofloxacin 750 mg, renal dosing, as precautionary * White blood cell count 17.4 today however this could be due to starting Solu- Medrol yesterday * Continue to trend labs 06/25/23: * WBC remains elevate at 18.2, Absolute Neut 91.7 * Continue solu-medrol and Duonebs * Patient started on Levofloxacin, renal dosing * Continue to trend labs (3) Diabetes: Qualifiers: Diabetes mellitus complication status: without complication Diabetes mellitus emt intermediate insulin use: without care home use Diabetes mellitus type: type 2 Qualified Code(s): E11.9 - Type 2 diabetes mellitus without complications Code(s): E11.9 - Type 2 diabetes mellitus without complications Status: Chronic Assessment and Plan: 06/23/23: * Accu-checks qAc and HS and Hold oral hypoglycemics * Initiate hypoglycemic precautions * Low-dose sliding scale 06/24/23: * Blood sugars ranging 198-212 * Will increase to high-dose sliding scale as the increase in her blood sugars could be due to the Solu-Medrol being started yesterday. 06/25/23: * BG ranging 192-201 * Continue with current treatment plan (4) HTN (hypertension): Code(s): I10 - Essential (primary) hypertension Status: Chronic Assessment and Plan: 06/23/23: * continue amlodipine and losartan. 06/24/23: * Blood pressure ranging 133/65 to 165/70 * Continue with current treatment plan 06/25/23: * Blood pressure ranging 124/57-166/81 * continue with current treatment plan (5) VARGAS on CPAP: Code(s): G47.33 - Obstructive sleep apnea (adult) (pediatric); Z99.89 - Dependence on other enabling machines and devices Status: Chronic Assessment and Plan: 06/23/23: * CPAP provide 06/24/23: * Continue with current treatment plan Time Spent With Patient Time with patient: 25 - 35 minutes Subjective Date/time seen: 06/25/23 09:20 Interval history: 06/24/23: This is an 88 year old female who presented to the hospital on 06/22/23 with complaints of shortness of breath a
--- NOTE | 2023-06-25 09:20 | PM.IMPN ---
Progress Note: A&P Assessment and Plan (1) Acute hypoxemic respiratory failure: Code(s): J96.01 - Acute respiratory failure with hypoxia Status: Acute Assessment and Plan: 06/23/23: Patient requiring 2 L of oxygen on presentation. Chest x-ray no acute cardiopulmonary process. CTA no pulmonary embolism Likely due to acute bronchitis. No history lung disease. Wean oxygen to maintain O2 saturation greater than 90%. DuoNebs scheduled q.6 hours 06/24/23: Patient currently on room air Wheezing noted throughout all lung diego Continue DuoNebs and Solu-Medrol 06/25/23: Remains on room air Wheezing noted throughout all lung diego, however better than yesterday Continue DuoNebs Will start decreasing Solu-Medrol today. (2) Bronchitis: Code(s): J40 - Bronchitis, not specified as acute or chronic Status: Acute Assessment and Plan: 06/23/23: CTA negative for pulmonary embolism but did show an acute bronchitis. Solu-Medrol 60 mg IV q.8 hours. Titrate down as needed. DuoNebs q.6 hours. Wean oxygen to maintain O2 saturation greater than 90%. 06/24/23: Patient reports upper respiratory symptoms for 1.5 weeks now that has progressively gotten worse Continue with Solu-Medrol Continue with DuoNebs Currently on room air, however patient wheezing throughout all lung diego Will start levofloxacin 750 mg, renal dosing, as precautionary White blood cell count 17.4 today however this could be due to starting Solu-Medrol yesterday Continue to trend labs 06/25/23: WBC remains elevate at 18.2, Absolute Neut 91.7 Continue solu-medrol and Duonebs Patient started on Levofloxacin, renal dosing Continue to trend labs (3) Diabetes: Qualifiers: Diabetes mellitus complication status: without complication Diabetes mellitus intermediate insulin use: without extermination supervisor use Diabetes mellitus type: type 2 Qualified Code(s): E11.9 - Type 2 diabetes mellitus without complications Code(s): E11.9 - Type 2 diabetes mellitus without complications Status: Chronic Assessment and Plan: 06/23/23: Accu-checks qAc and HS and Hold oral hypoglycemics Initiate hypoglycemic precautions Low-dose sliding scale 06/24/23: Blood sugars ranging 198-212 Will increase to high-dose sliding scale as the increase in her blood sugars could be due to the Solu-Medrol being started yesterday. 06/25/23: BG ranging 192-201 Continue with current treatment plan (4) HTN (hypertension): Code(s): I10 - Essential (primary) hypertension Status: Chronic Assessment and Plan: 06/23/23: continue amlodipine and losartan. 06/24/23: Blood pressure ranging 133/65 to 165/70 Continue with current treatment plan 06/25/23: Blood pressure ranging 124/57-166/81 continue with current treatment plan (5) VARGAS on CPAP: Code(s): G47.33 - Obstructive sleep apnea (adult) (pediatric); Z99.89 - Dependence on other enabling machines and devices Status: Chronic Assessment and Plan: 06/23/23: CPAP provide 06/24/23: Continue with current treatment plan Time Spent With Patient Time with patient: 25 - 35 minutes Subjective Date/time seen: 06/25/23 09:20 Interval history: 06/24/23: This is an 88 year old female who presented to the hospital on 06/22/23 with complaints of shortness of breath and coughing. Patient was found to be hypoxic requiring 2L NC on arrival. Work up in hospital included a chest x-ray that did not show any acute cardiopulmonary disease and a CTA of the chest which was negative for PE however revealed bronchitis with diffuse mild bronchial wall thickening and scattered mucous plugging in the bilateral lower lobes. Labs revealed WBC 10.4, Na+ 134, BUN 20, Creatinine 0.80, pO2 71. EKG revealed 1st degree AVB, rate 99. On examination patient is alert oriented x4 while lying in the bed. VSS, she is af
[2023-06-25 12:07] LABS: Glucose Point of Care 227 mg/dl (65-105)
[2023-06-25] MEDS: INSULIN ASPART (*BKC) 100 UNITS/ML SUB-Q ×2 (13:50→21:56)
[2023-06-25] MEDS: PHENOL/SOD PHENO SPRAY CHERRY (*BKC) 1 SPRAY MUCOUS MEM (14:23)
--- NOTE | 2023-06-25 15:05 | PCCCNOTE ---
On 06/25/23, the student, [Kim Francis], provided care and completed [facility] documentation on this patient. I have reviewed the student's documentation and agree with the findings.
[2023-06-25 16:58] LABS: Glucose Point of Care 190 mg/dl (65-105)
[2023-06-25] MEDS: CHOLESTYRAMINE LIGHT 4 GM POWD.PACK PO (18:57)
[2023-06-25] MEDS: traZODone HCL 50 MG TABLET 100 MG PO (20:53)
[2023-06-25] MEDS: amLODIPine BESYLATE 5 MG TABLET 10 MG PO (20:53)
[2023-06-25] MEDS: LOSARTAN POTASSIUM 50 MG TABLET PO (20:54)
[2023-06-25 21:52] LABS: Glucose Point of Care 214 mg/dl (65-105)
[2023-06-26] MEDS: IPRATROPIUM BR 0.02% INH SOLN 0.5 MG/2.5 ML VIAL INHALATION ×2 (01:34→07:18)
[2023-06-26] MEDS: LEVALBUTEROL NEB 1.25 MG/3 ML INHALATION ×2 (01:34→07:18)
[2023-06-26 01:39] VITALS: PULSE 79; RESP 16; RESP 20
[2023-06-26 01:48] VITALS: PULSE 84; RESP 18
[2023-06-26 06:00] VITALS: BP 154/64; PULSE 87; RESP 18; TEMP 36.4; O2SAT 98
[2023-06-26 06:24] LABS: Basophils Percent Auto 0.2 % (0.2-1.2); Hematocrit 41.1 % (37.0-47.0); Hemoglobin 13.4 g/dL (12.0-15.0); Immature Granulocyte Percent A 1.1 % (0-0.5); Lymphocytes Absolute Auto 1.08 K/mm3 (0.9-3.2); Lymphocytes Percent Auto 5.9 % (18.3-44.2); Mean Corpuscular HGB Conc 32.6 g/dl (32-36); Mean Corpuscular Volume 91.9 fl (80-100); Mean Platelet Volume 10.1 fl (7.4-10.4); Monocytes Percent Auto 5.2 % (2.6-8.5); Neutrophils Absolute Auto 16.1 K/mm3 (1.3-6.7); Neutrophils Percent Auto 87.6 % (45.5-73.1); Platelet Count Result 352 k/mm3 (150-375); Red Blood Count 4.47 M/mm3 (4.2-5.4); Red Cell Distribution Width 14.2 % (11.5-14.5); White Blood Count 18.3 K/mm3 (4.5-10.0)
[2023-06-26 06:35] LABS: Alanine Aminotransferase 37 U/L (6-35); Albumin Level 3.6 g/dL (3.5-5.1); Alkaline Phosphatase 77 U/L (38-126); Anion Gap 8 mmol/L (8-16); Aspartate Amino Transferase 45 U/L (14-36); Bilirubin,Total 0.8 mg/dL (0.2-1.3); Blood Urea Nitrogen 38 mg/dL (7-17); Calcium 9.2 mg/dL (8.4-10.2); Carbon Dioxide 21 mmol/L (22-30); Chloride 105 mmol/L (98-107); Estimated CRCL calculation 28 ml/min; Estimated Glomerular Filt Rate 47; Glucose 181 mg/dL (65-110); Potassium 4.2 mmol/L (3.4-5.0); Sodium 134 mmol/L (137-145)
[2023-06-26 07:19] VITALS: PULSE 87; RESP 18
[2023-06-26 07:21] VITALS: O2SAT 97
[2023-06-26 07:34] VITALS: PULSE 89; RESP 18
[2023-06-26 08:05] LABS: Glucose Point of Care 156 mg/dl (65-105)
[2023-06-26] MEDS: VENLAFAXINE HCL XR 37.5 MG CAP PO (08:14)
[2023-06-26] MEDS: ENOXAPARIN 40 MG/0.4 ML SYRINGE SUB-Q (08:14)
[2023-06-26] MEDS: levoFLOXacin 750 MG TABLET PO (08:14)
[2023-06-26 10:49] LABS: Procalcitonin 0.1 ng/mL
--- NOTE | 2023-06-26 11:02 | PM.DS ---
DS: Admitting Diagnosis Discharge Date 06/26/23 Admitting Diagnosis Acute hypoxemic respiratory failure Bronchitis Diabetes hypertension DS: Summary Hospital Course Reason for hospitalization: Acute hypoxic respiratory failure Bronchitis Hospital Course: This is an 88 year old female who presented to the hospital on 06/22/23 with complaints of shortness of breath and coughing. Patient was found to be hypoxic requiring 2L NC on arrival. Work up in hospital included a chest x-ray that did not show any acute cardiopulmonary disease and a CTA of the chest which was negative for PE however revealed bronchitis with diffuse mild bronchial wall thickening and scattered mucous plugging in the bilateral lower lobes. Patient was started on breathing treatments and steroids. Patient was weaned off oxygen on 06/23/23. WBC bumped to 17.4 which was attributed to steroid use. We did give a dose of Levofloxacin 750 mg as precautionary as she has had these symptoms for quite a while. Procalcitonin was drawn and resulted at 0.1. On examination today patient is alert and oriented x4, sitting in chair. She states that she is feeling much better today. VSS, she is afebrile, and remains on room air. Labs today reveal WBC 18.3, Na+ 134, K+ 4.2, Chloride 105, Bicarb 21, BUN 38, creatinine 1.10, BG ranging 139-181. Patient will be discharged with methylprednisone taper and albuterol inhaler. She is to finish all of her steroid and follow up with PCP in 1 week. Final diagnosis: Acute hypoxic respiratory failure and Acute Bronchitis Status at Discharge Cognitive/behavioral status at discharge: Alert and oriented x4 Functional status at discharge: uses cane/walker Overall status at discharge: patient is progressing back to baseline Time Spent with Patient Time attestation: Total time spent providing and/or coordinating discharge services: Time spent: Greater than 30 minutes Exam Narrative: General: In no acute distress, well nourished Head: atraumatic, no encephalopathy Eyes: EOMI, PERRLA, sclera clear ENT: moist mucous membranes, nasal passages clear Neck: supple, no JVD, no adenopathy, trachea midline Cardiac: Normal S1 and S2. No murmur, gallops or friction rubs, peripheral pulses intact. Respiratory:Minimal wheezing noted today. Lungs essentially clear, breathing is non-labored at this time. Gastrointestinal: soft, non-distended, non-tender, normoactive bowel sounds. : voiding without difficulty. Extremities: moves all extremities well, no edema, good ROM, strength 5/5 Skin: clean, dry, intact. No wounds or lesions. Neuro: Alert and oriented x4, cranial nerves intact, no neuro deficits. Psych: normal mood, normal affect, interactive DS: Data Data Completed and Pending Completed studies during hospitalization: Chest x-ray CTA of the chest Pending studies at discharge: none Labs on day of discharge: Labs from last 24 hours 06/26/23 06/26/23 06/26/23 07:39 06:04 06:03 WBC 18.3 H RBC 4.47 Hgb 13.4 Hct 41.1 MCV 91.9 MCH 30.0 MCHC 32.6 RDW 14.2 Plt Count 352 MPV 10.1 Immature Gran % (Auto) 1.1 H Neut % (Auto) 87.6 H Lymph % (Auto) 5.9 L [place] % (Auto) 5.2 Eos % (Auto) 0.0 Baso % (Auto) 0.2 Lymph # (Auto) 1.08 [place] # (Auto) 1.0 H Eos # (Auto) 0.0 Baso # (Auto) 0.0 Abs Immat Gran (auto) 0.20 H Absolute Neuts (auto) 16.1 H Absolute Nucleated RBC 0.0 Nucleated RBC % 0.0 Sodium 134 L Potassium 4.2 Chloride 105 Carbon Dioxide 21 L Anion Gap 8 BUN 38 H Creatinine 1.10 H Estim Creat Clear Calc 28 Estimated GFR 47 L Glucose 181 H POC Capillary Glucose 156 H Calcium 9.2 Total Bilirubin 0.8 AST 45 H ALT 37 H Alkaline Phosphatase 77 Total Protein 7.0 Albumin 3.6 Procalcitonin 0.1 06/25/23 06/25/23 06/25/23 21:48 16:55 12:00 WBC RBC Hgb Hct MCV MCH MCHC RDW Plt Count
[2023-06-26 11:47] LABS: Glucose Point of Care 139 mg/dl (65-105)
[2023-06-26] MEDS: methylPREDNISolone SOD SUCC 125 MG VIAL 60 MG IV PUSH (12:36)
== END 2023-06-26 13:17 | disposition home or self-care (01) | DRG 189 ==
LOC: ANHED 06-23 00:35 → ANH3MEDSUR 06-23 01:29
PROVIDERS: Internal Medicine Critical Care Medicine; Admitting Provider Internal Medicine; Emergency Provider Emergency Medicine; PCP Internal Medicine; Visit Provider Nurse Practitioner Acute Care
DX: J96.01 Acute respiratory failure with hypoxia (principal); Z20.822 Contact with and (suspected) exposure to COVID-19; J20.9 Acute bronchitis, unspecified; G47.33 Obstructive sleep apnea (adult) (pediatric); M17.11 Unilateral primary osteoarthritis, right knee; E11.42 Type 2 diabetes mellitus with diabetic polyneuropathy; K21.9 Gastro-esophageal reflux disease without esophagitis; K76.0 Fatty (change of) liver, not elsewhere classified; I34.1 Nonrheumatic mitral (valve) prolapse; F41.9 Anxiety disorder, unspecified; Z96.652 Presence of left artificial knee joint; Z87.442 Personal history of urinary calculi; Z90.710 Acquired absence of both cervix and uterus; Z90.49 Acquired absence of other specified parts of digestive tract
CPT/HCPCS: 36415; 36600; 71046; 71275; 80048; 80053; 82805; 82948; 83605; 83880; 84145; 84484; 85025; 85027; 87634; 87636; 93005; 94640; 96372; 96374; 96375; 96376; 99285; A9270; G0378; J1100; J1650; J1815; J2930; Q9967

== ENCOUNTER 2023-11-03 16:22 | Emergency (ER) | payer MEDICARE, SELFPAY ==
--- NOTE | ~2023-11-03 | CT_ITS ---
EXAMINATION: CT chest abdomen pelvis w con DATE: 11/03/2023 19:01 CDT INDICATION: Upper back pain. Epigastric and right upper quadrant pain. TECHNIQUE: Computed tomography (CT) of the chest, abdomen, and pelvis was performed with 100 cc Omnip aque 350 intravenous contrast. The dose-length product was 436.87 mGy-cm. Automated exposure control and iterative reconstruction technique were employed. COMPARISON: CT dated 06/22/2023 FINDINGS: CHEST CT: Left lower lobe atelectasis. No pneumothorax. No endobronchial lesions. No focal airspace consolidati on. Calcified granuloma left upper lobe. No thoracic lymphadenopathy. Heart size normal. No significa nt pleural or pericardial effusion. ABDOMEN/PELVIS CT: There is a thickened enhancing mucosa of the duodenum, compatible with duodenitis. Status post cholec ystectomy. Fatty infiltration of the liver. There are calcified granulomas of the spleen. Pancreas is atrophic. The adrenal glands are normal. There is nonobstructing right renal stone in the renal pelv is. Mild urothelial enhancement of the right renal pelvis and proximal ureter. Ascending urinary trac t infection not excluded. There is punctate gas in the bladder lumen. Correlate for recent instrument ation. There is a urachal remnant. No free air or free fluid. Colonic diverticulosis without evidence for diverticulitis. There is atherosclerosis without aneurysm. No lymphadenopathy. There is thoracic and lumbar spondylosis with accentuated thoracic kyphosis. There is degenerative grade 1 spondylolis thesis at L4-5. IMPRESSION: 1. Thickened enhancing duodenal mucosa with mild surrounding inflammation/fluid, consistent with duod enitis, most likely infectious or inflammatory. 2: Nonobstructing right nephrolithiasis. Mild urothelial enhancement of the right renal pelvis and pr oximal ureter. Ascending urinary tract infection not excluded. Reviewed, dictated and finalized at location A. IMPRESSION: 1. Thickened enhancing duodenal mucosa with mild surrounding inflammation/fluid , consistent with duodenitis, most likely infectious or inflammatory. 2: Nonobstructing right nephrolithiasis. Mild urothelial enhancement of the rig ht renal pelvis and proximal ureter. Ascending urinary tract infection not excl uded.
[2023-11-03 16:23] VITALS: BP 158/118; PULSE 78; RESP 16; TEMP 36.9; O2SAT 97
--- NOTE | 2023-11-03 16:42 | ECG_ITS ---
Measurements Intervals [place] Rate: 75 P: 50 RI: 190 QRS: -20 QRSD: 89 T: 61 QT: 393 Avg RR 796 QTc: 422 QTcB 440 QTcF 424 Interpretive Statements SINUS RHYTHM WITH OCCASIONAL SUPRAVENTRICULAR PREMATURE COMPLEXES BORDERLINE ECG SEE SCANNED COPY FOR SIGNATURE MTDD
[2023-11-03 16:58] VITALS: BP 170/80; PULSE 76; RESP 20; O2SAT 96
[2023-11-03 17:26] LABS: Appearance Urine Clear (Clear); Bilirubin Urine Negative (Negative); Blood Urine Negative (Negative); Color Urine Yellow (Yellow); Glucose Urine UA Negative (Negative); Ketones Urine Negative (Negative); Leukocyte Esterase Ur Negative LEU/UL (Negative); Nitrate Urine Negative (Negative); Protein Urine Negative (Negative); Specific Grav Ur 1.018 (1.001-1.035); Urobilinogen Urine 0.2 mg/dL (<2.0); pH Urine 6.5 (5.0-9.0)
[2023-11-03] MEDS: SODIUM CHLORIDE 0.9% IV 1,000 ML 999 ML IV CONT (17:35)
[2023-11-03] MEDS: ONDANSETRON INJ 4 MG/2 ML VIAL IV PUSH (17:35)
[2023-11-03] MEDS: MORPHINE SULFATE (*CRX) 2 MG/ML INJ IV PUSH (17:35)
[2023-11-03 17:36] LABS: Troponin I < 0.012 ng/mL (0.000-0.034)
[2023-11-03 17:43] LABS: Basophils Absolute Auto 0.1 K/mm3 (0.0-0.1); Basophils Percent Auto 0.7 % (0.2-1.2); Eosinophils Absolute Auto 0.6 K/mm3 (0-0.3); Eosinophils Percent Auto 6.3 % (0-4.4); Hematocrit 42.2 % (37.0-47.0); Hemoglobin 13.7 g/dL (12.0-15.0); Immature Granulocyte Absolute 0.04 K/mm3 (0.00-0.031); Immature Granulocyte Percent A 0.4 % (0-0.5); Lymphocytes Absolute Auto 2.23 K/mm3 (0.9-3.2); Mean Corpuscular HGB Conc 32.5 g/dl (32-36); Mean Corpuscular Hemoglobin 29.1 pg (26-34); Mean Corpuscular Volume 89.8 fl (80-100); Mean Platelet Volume 10.1 fl (7.4-10.4); Monocytes Absolute Auto 0.8 K/mm3 (0.1-0.6); Monocytes Percent Auto 8.4 % (2.6-8.5); Neutrophils Absolute Auto 5.9 K/mm3 (1.3-6.7); Neutrophils Percent Auto 61.2 % (45.5-73.1); Platelet Count Result 346 k/mm3 (150-375); White Blood Count 9.7 K/mm3 (4.5-10.0)
--- NOTE | 2023-11-03 17:54 | ED.BACK ---
HPI - Back Pain/Injury General Chief Complaint: Back Pain/Injury Stated Complaint: BACK PAIN,N/V Time Seen by Provider: 11/03/23 16:57 Source: patient and old records reviewed Mode of arrival: ambulatory Limitations: no limitations History of Present Illness HPI Narrative: Patient is an 88-year-old female who presents the ED with report of upper back pain. Patient reports she first developed pain in her upper back between her shoulder blades last night. States pain was intermittent throughout the night, and she woke up this morning with nausea and vomiting and dry heaving. Pain has began to radiate around her upper abdomen. She has not taken anything for the pain today. Denies current nausea. Denies issues with diarrhea or constipation. Denies rectal bleeding or melena. Denies fevers. Denies chest pain, shortness breath. Patient mentioned she was recently admitted to the hospital here for idiopathic pancreatitis. She does not have a gallbladder. Related Data Home Medications Medication Instructions Recorded Confirmed amlodipine 10 mg tablet 10 mg PO HS 06/21/19 06/23/23 trazodone 100 mg tablet 100 mg PO HS 06/21/19 06/23/23 venlafaxine 75 mg capsule,extended 37.5 mg PO DAILY 06/21/19 06/23/23 release 24 hr losartan 50 mg tablet 50 mg PO HS 10/01/21 06/23/23 metformin 500 mg tablet 500 mg PO DAILY 06/23/23 06/23/23 Allergies Allergy/AdvReac Type Severity Reaction Status Date / Time lisinopril Allergy Itching Verified 11/03/23 16:22 Review of Systems Review of Systems: CONSTITUTIONAL: Denies fever, chills, or sweats. CARDIOVASCULAR: Denies chest pain. RESPIRATORY: Denies dyspnea. GASTROINTESTINAL: See HPI. GENITOURINARY: Denies dysuria or hematuria. MUSCULOSKELETAL: See HPI. All systems reviewed & are unremarkable except as noted in HPI and below PMFSH Past Medical History Medical History Acute pancreatitis Anxiety Arthritis Cataracts, bilateral Colonic diverticular abscess Depression Diabetes GERD (gastroesophageal reflux disease) Hepatic steatosis History of kidney stones HTN (hypertension) Kidney stones Leukocytosis Mitral valve prolapse Nausea and vomiting in adult Obesity VARGAS on CPAP Osteoarthritis of right knee Peripheral neuropathy Right distal ureteral calculus Upper abdominal pain Surgical History Surgical History H/O lithotripsy History of bladder surgery History of hysterectomy History of total left knee replacement History of ureter stent Hx of cardiac catheterization Hx of cataract surgery Hx of cholecystectomy Family History Family History Sibling Diabetes mellitus Carcinoma of colon Mother , age 82 Heart disease Hypertension Cerebrovascular accident Father Diabetes mellitus Hypertension Family history of cardiovascular disease Daughter Cystic fibrosis 2 daughters Social History Social History Social History: She has 4 children. She is and lives with her who she is now at the full strike off machine operator of due to his dementia.. 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 Her is a durable power litigation attorney associate for healthcare. Code status full code Smoking status: Never smoker Alcohol intake: never Substance use: never Lack of Transportation: No Lack of Food: Never True Current Housing: I Have Housing Concerned About Future Housing: No Difficulty Paying Gas/Electric Bills: No Difficulty Paying for Meds: No Currently Unemployed: No Education: Grade School Difficulty w/ Childcare or Family Care: No Living arrangements: with family Occupation/Education: retired Gender identity (if verbalized by the patient): Female Spiritual care concer
[2023-11-03 17:59] LABS: Add Urine Microscopic? NO
[2023-11-03 18:06] LABS: Lactic Acid Reflex 1.2 mmol/L (0.7-2.0)
[2023-11-03 18:20] LABS: Alanine Aminotransferase 21 U/L (6-35); Albumin Level 4.5 g/dL (3.5-5.1); Alkaline Phosphatase 93 U/L (38-126); Anion Gap 9 mmol/L (4-12); Aspartate Amino Transferase 40 U/L (14-36); Blood Urea Nitrogen 24 mg/dL (7-17); Calcium 9.8 mg/dL (8.4-10.2); Carbon Dioxide 24 mmol/L (22-30); Chloride 103 mmol/L (98-107); Estimated CRCL calculation 34 ml/min; Estimated Glomerular Filt Rate 59; Glucose 140 mg/dL (65-110); Lipase 31 U/L (23-300); Potassium 4.3 mmol/L (3.4-5.0); Sodium 136 mmol/L (137-145)
[2023-11-03] MEDS: ACETAMINOPHEN 500 MG TABLET 1000 MG PO (19:02)
[2023-11-03 19:04] VITALS: BP 140/79; PULSE 82; RESP 17; O2SAT 97
[2023-11-03] MEDS: BELLADONNA ALK/PHENOB ELIX 10 ML, MAG HYDROX/ALUMINUM HYD/SIMETH 30 ML, LIDOCAINE HCL 2... PO (20:38)
[2023-11-03 21:32] VITALS: BP 162/84; PULSE 88; RESP 15; O2SAT 98
== END 2023-11-03 21:34 | disposition home or self-care (01) ==
LOC: ANHED 21:06
PROVIDERS: Family Medicine; Emergency Provider Physician Assistant; PCP Internal Medicine
DX: M54.9 Dorsalgia, unspecified (principal); K29.80 Duodenitis without bleeding; R10.10 Upper abdominal pain, unspecified; F41.9 Anxiety disorder, unspecified; M19.90 Unspecified osteoarthritis, unspecified site; F32.A Depression, unspecified; E11.9 Type 2 diabetes mellitus without complications; K21.9 Gastro-esophageal reflux disease without esophagitis; K76.0 Fatty (change of) liver, not elsewhere classified; Z87.442 Personal history of urinary calculi; I10 Essential (primary) hypertension; G47.30 Sleep apnea, unspecified; M17.11 Unilateral primary osteoarthritis, right knee; Z79.84 Long term (current) use of oral hypoglycemic drugs
CPT/HCPCS: 36415; 71260; 74177; 80053; 81003; 83605; 83690; 83735; 84484; 85025; 93005; 96361; 96374; 96375; 99284; A9270; J2270; J2405; J7030; Q9967